=== PATIENT | female | born 1960 | race Caucasian/White ===

== ENCOUNTER 2017-01-24 18:53 | Inpatient (IN) ==
[2017-01-24] MEDS ORDERED: SODIUM CHLORIDE 0.9% 1,000 ML IV STA (19:13)
[2017-01-24] MEDS ORDERED: ALBUTEROL 2.5 MG/3 ML NEB RESP TX STA (19:13)
[2017-01-24 19:56] LABS: Basophils % 0.3 % (0.0-0.8); Eosinophils # 0.2 10*3/uL (0.0-0.87); Eosinophils % 1.8 % (0.00-10.9); Hematocrit 31.5 VOL% (35.7-47.0); Hemoglobin 9.7 GM/DL (12.0-16.0); Immature Granulocytes % 0.6 %; Immature Granulocytes Absolute 0.06 #; Lymphocytes # 2.3 10*3/uL (1.4-4.0); Lymphocytes % 22.8 % (21.3-54.2); Mean Corpuscular HGB Conc 30.8 GM/DL (32-36); Mean Corpuscular Hemoglobin 30 PG (27-34); Mean Corpuscular Volume 97.5 FL (87-102); Mean Platelet Volume 10.2 FL (9.6-12.0); Monocytes # 0.7 10*3/uL (0.11-0.8); Monocytes % 6.8 % (1.7-12.7); Neutrophils # 6.9 10*3/uL (1.4-7.4); Neutrophils % 67.7 % (38.7-73.9); Platelet Count 244 T/CUMM (130-400); Red Blood Count 3.23 MC/CUMM (3.8-5.5); Red Cell Distribution Width 15.2 % (9.3-17.3); White Blood Count 10.2 T/CUMM (4-12)
--- NOTE | 2017-01-24 19:59 | XRay Report ---
Referring Physician: Mariana Le Exam: XR chest 1V portable Date: January 24, 2017 at 7:27 PM Reason: Shortness of breath, fever Comparison: Chest one view portable September 10, 2016 Findings: A tracheostomy catheter is again in place. The cardiac silhouette is normal in size. Bibasilar opacities are present, mainly on the right. This is concerning for atelectasis and possibly pneumonia. No pneumothorax is identified, and no definite pleural fluid is seen. The osseous structures appear stable. Impression: Bibasilar opacities are present, mainly on the right. This likely represents atelectasis and possibly pneumonia. Follow-up is recommended to confirm resolution. PROCEDURE INTERPRETED AT [facility] DEPARTMENT OF RADIOLOGY Final Report Signed by: Dr. Lamberto Sands
[2017-01-24 20:12] LABS: INR 1.1; PT Patient Result 11.4 SECS
[2017-01-24 20:19] LABS: ABG Base Excess -0.1 MMOL/L (-2.5-2.5); ABG HCO3 24.2 MMOL/L (20-26); ABG Oxygen Saturation 97.1 % (95-100); ABG PCO2 38.4 MM HG (35-48); ABG PH 7.417 (7.35-7.45); ABG PO2 91.2 MM HG (80-95); ABG TCO2 25.4 MMOL/L (23-27); Allen Test Positive; Pt O2 Delivery Device Other
--- NOTE | 2017-01-24 20:21 | CT Report ---
Referring physician: Mariana Le Exam: CT brain without contrast Date: January 24, 2017 Comparison: CT brain without contrast June 25, 2016 Reason: Altered mental status The patient is an Emergency Department patient on January 24, 2017. Technique: Axial images of the head were obtained without the use of contrast. Total DLP was 1012.1 mGy*cm. Findings: There is again encephalomalacia at the right frontal lobe and possibly at the inferior left temporal lobe, which could represent a remote infarction or could be related to remote trauma. There is also persistent dilatation of the ventricles, particularly the lateral ventricles. This is concerning for hydrocephalus. No significant midline shift is seen. There is hypoattenuation at the periventricular white matter bilaterally, which could reflect chronic microvascular ischemic change or transependymal flow of CSF. There is no evidence of recent intracranial hemorrhage or an acute infarction. No acute osseous process is seen. The right mastoid air cells are clear. There is mild fluid within the left mastoid air cells and mild opacification of the right sphenoid sinus. Impression: 1. The ventricles are again dilated, particularly the lateral ventricles. The ventricles are overall stable to slightly decreased in size. This is concerning for hydrocephalus. 2. Additional chronic intracranial findings as above, similar to before. 3. Mild fluid within the right mastoid air cells and right sphenoid sinus disease. The CT exam was performed using one or more of the following dose reduction techniques: Automated exposure control and adjustment of the mA and/or kV according to patient size. PROCEDURE INTERPRETED AT [facility] DEPARTMENT OF RADIOLOGY Final Report Signed by: Dr. Lamberto Sands
[2017-01-24 20:27] LABS: Alanine Aminotransferase 35 U/L (13-56); Albumin 2.4 G/DL (3.4-5.0); Alkaline Phosphatase 98 U/L (45-117); Aspartate Amino Transferase 22 U/L (0-37); Bilirubin,Total < 0.39 MG/DL (0.2-1.0); Blood Urea Nitrogen 35 MG/DL (7-18); Calcium 8.4 MG/DL (8.5-10.1); Glucose 108 MG/DL (74-106); Osmolality,Calculated 324.6 MOS/KG (273-304); Potassium 3.9 MMOL/L (3.5-5.1); Total Protein 7.1 G/DL (6.4-8.3)
[2017-01-24 20:30] LABS: Sodium 160 MMOL/L (136-145)
[2017-01-24 21:30] LABS: Apearance,Urine CLOUDY (Clear); Bilirubin,Urine Negative (Negative); Blood, Urine Small mg/dL (Negative); Glucose,Urine (UA) Negative (Negative); Hyaline Casts,Urine 9 /LPF (0-3); Ketones,Urine Negative (Negative); Nitrite,Urine Negative (Negative); Protein,Urine Negative; RBC,Urine 46 /HPF (0-4); Squamous Epithelial Cell,Urine Occasional /HPF (0-10); Urine Color Yellow (Yellow); Urine Specific Gravity 1.014 (1.001-1.035); Urine Urobilinogen < 2.0 EU/DL (0.2-1.0); WBC,Urine 103 /HPF (0-6)
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
[2017-01-24] MEDS ORDERED: ACETAMINOPHEN 325 MG TABLET PO PRN (23:10)
[2017-01-24] MEDS ORDERED: VANCOMYCIN INJ 1,000 MG in SODIUM CHLORIDE 0.9% 250 ML IV ONE (23:10)
[2017-01-25] MEDS: DEXTROSE 5% NACL 0.45% 1,000 ML IV SCH ×3 (00:45→18:25)
[2017-01-25] MEDS: MEROPENEM 1,000 MG in SODIUM CHLORIDE 0.9% 100 ML IV SCH ×3 (00:53→18:26)
[2017-01-25] MEDS: ENOXAPARIN 40 MG/0.4 ML SYRINGE SUBCUT SCH (00:53)
[2017-01-25] MEDS: ALBUTEROL/IPRATROPIUM 3 ML NEB RESP TX SCH ×4 (01:20→19:15)
[2017-01-25 05:23] LABS: Basophils % 0.2 % (0.0-0.8); Eosinophils # 0.3 10*3/uL (0.0-0.87); Eosinophils % 3.1 % (0.00-10.9); Hematocrit 29.1 VOL% (35.7-47.0); Hemoglobin 8.7 GM/DL (12.0-16.0); Immature Granulocytes % 0.5 %; Immature Granulocytes Absolute 0.04 #; Lymphocytes # 1.9 10*3/uL (1.4-4.0); Lymphocytes % 22.5 % (21.3-54.2); Mean Corpuscular HGB Conc 29.9 GM/DL (32-36); Mean Corpuscular Hemoglobin 30 PG (27-34); Mean Corpuscular Volume 98.6 FL (87-102); Mean Platelet Volume 10.4 FL (9.6-12.0); Monocytes # 0.6 10*3/uL (0.11-0.8); Monocytes % 6.8 % (1.7-12.7); Neutrophils # 5.8 10*3/uL (1.4-7.4); Neutrophils % 66.9 % (38.7-73.9); Platelet Count 199 T/CUMM (130-400); Red Blood Count 2.95 MC/CUMM (3.8-5.5); Red Cell Distribution Width 15.2 % (9.3-17.3); White Blood Count 8.6 T/CUMM (4-12)
[2017-01-25 05:56] LABS: Albumin 2.1 G/DL (3.4-5.0); Bilirubin,Total 0.8 MG/DL (0.2-1.0); Calcium 8.1 MG/DL (8.5-10.1); Magnesium 2.1 MG/DL (1.8-2.4); Potassium 3.6 MMOL/L (3.5-5.1); Total Protein 6.3 G/DL (6.4-8.3)
--- NOTE | 2017-01-25 09:30 | EKG Report ---
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
[2017-01-25] MEDS: levETIRAcetam LIQUID 100 MG/ML 30 ML/BOTTLE PO SCH ×2 (09:48→20:56)
[2017-01-25] MEDS: MENTHOL/ZINC OXIDE OINT 71 GM JAR TOP SCH ×2 (09:48→20:55)
--- NOTE | 2017-01-25 13:34 | Hospitalist Progress Note ---
Assessment and Plan (1) Aspiration pneumonia Status: Acute Assessment and plan: The patient is admitted to the hospital with sepsis syndrome. She has aspiration pneumonia and healthcare setting as well as urinary tract infection. The patient continues on vancomycin and meropenem. Blood pressure is stable now and urine output has improved. The patient will continue on present antibiotic care. We will obtain infectious disease consultation tomorrow and follow-up on blood cultures. Urine cultures growing gram-negative kayode Current Visit: No Qualifiers: Aspiration pneumonia type: due to gastric secretions Laterality: bilateral Lung location: lower lobe of lung Qualified Code(s): J69.0 - Pneumonitis due to inhalation of food and vomit (2) Altered mental state Status: Acute Current Visit: Yes Qualifiers: Altered mental status type: somnolence Qualified Code(s): R40.0 - Somnolence (3) Urinary tract infection Status: Acute Current Visit: Yes Qualifiers: Urinary tract infection type: acute cystitis Hematuria presence: with hematuria Qualified Code(s): N30.01 - Acute cystitis with hematuria (4) Sacral decubitus ulcer Status: Chronic Current Visit: Yes Hospitalist: Subjective Interval history: The patient is resting quietly in bed this morning. I reviewed the plan of care and progress with her sister at the bedside. The patient has had increasing aspiration over the last several weeks. The patient is bedbound with tracheostomy and PEG tube. The patient has a sacral decubitus which has been healing in the last couple of months. The patient had no new events overnight and is on empiric care for sepsis syndrome with vancomycin and meropenem. Exam - Constitutional Vitals: Period Temp Pulse Resp BP Sys/Vargas Pulse Ox Last 24 Hr 97.5 F-98.1 F 77-109 15-27 90-109/60-76 94-100 Exam: General appearance: disheveled, other (White female appears older than stated age, acutely and chronically ill, tracking with eyes but makes no effort to communicate) Exam: - Eye Eye exam: Present: EOMI. Absent: conjunctival injection, scleral icterus Pupils: Present: BRADLEY - ENT ENT exam: Present: normal external ear exam, normal oropharynx - Expanded ENT Exam Mouth exam: Present: Dry - Neck Neck exam: Present: Tracheostomy noted absent: lymphadenopathy, thyromegaly - Respiratory Respiratory exam: Present: clear to auscultation bilaterally, decreased breath sounds. Absent: accessory muscle use, rales, rhonchi, wheezes - Cardiovascular Cardiovascular exam: Present: regular rhythm, tachycardia. Absent: diastolic murmur, systolic murmur - Expanded Cardiovascular Exam Peripheral pulses: 2+: posterior tibialis (L), posterior tibialis (R) - GI/Abdominal GI/Abdominal exam: Present: normal bowel sounds, soft, PEG tube noted. Absent: distended, hyperactive bowel sounds, hypoactive bowel sounds, organomegaly, tenderness, rebound - Extremities Exam Extremities exam: Absent: edema - Neurological Exam Neurological exam: Present: alert, aphasia, tracks, weakly opens mouth on command but does not move fingers - Psychiatric Psychiatric exam: Present: aphasia - Skin Skin exam: Present: warm, dry, pressure ulcer noted on admission. Absent: diaphoretic, rash Results - Labs CBC & BMP: 01/25/17 04:53 01/25/17 04:53 Lab Results: I have reviewed the past 24 hour labs
[2017-01-25] MEDS ORDERED: CITALOPRAM 20 MG TABLET PO SCH (19:00)
[2017-01-25] MEDS: VANCOMYCIN INJ 1,000 MG in SODIUM CHLORIDE 0.9% 250 ML IV SCH (20:55)
[2017-01-26] MEDS: MEROPENEM 1,000 MG in SODIUM CHLORIDE 0.9% 100 ML IV SCH ×4 (00:04→23:37)
[2017-01-26] MEDS: ENOXAPARIN 40 MG/0.4 ML SYRINGE SUBCUT SCH ×2 (00:04→23:37)
[2017-01-26] MEDS: ALBUTEROL/IPRATROPIUM 3 ML NEB RESP TX SCH ×4 (01:53→18:59)
[2017-01-26 05:06] LABS: Basophils % 0.4 % (0.0-0.8); Eosinophils # 0.3 10*3/uL (0.0-0.87); Eosinophils % 5.9 % (0.00-10.9); Hematocrit 23.2 VOL% (35.7-47.0); Hemoglobin 7.3 GM/DL (12.0-16.0); Immature Granulocytes % 0.6 %; Immature Granulocytes Absolute 0.03 #; Lymphocytes # 1.3 10*3/uL (1.4-4.0); Lymphocytes % 24.9 % (21.3-54.2); Mean Corpuscular HGB Conc 31.5 GM/DL (32-36); Mean Corpuscular Hemoglobin 30 PG (27-34); Mean Corpuscular Volume 95.9 FL (87-102); Mean Platelet Volume 10.4 FL (9.6-12.0); Monocytes # 0.4 10*3/uL (0.11-0.8); Monocytes % 7.2 % (1.7-12.7); Neutrophils # 3.3 10*3/uL (1.4-7.4); Platelet Count 166 T/CUMM (130-400); Red Blood Count 2.42 MC/CUMM (3.8-5.5); Red Cell Distribution Width 14.9 % (9.3-17.3); White Blood Count 5.4 T/CUMM (4-12)
[2017-01-26 05:40] LABS: Calcium 7.9 MG/DL (8.5-10.1); Magnesium 1.6 MG/DL (1.8-2.4); Osmolality,Calculated 293.4 MOS/KG (273-304); Potassium 3.4 MMOL/L (3.5-5.1)
--- NOTE | 2017-01-26 07:58 | XRay Report ---
XR chest 1V portable Indication: SOB Comparison: Chest x-ray dated January 24, 2017 Technique: Single frontal view of the chest Findings: Tracheostomy tube and cardiac mediastinal silhouette appear grossly unchanged. Progressed right infrahilar opacification suggesting asymmetric pulmonary edema or pneumonia. Osseous and surrounding soft tissue structures appear grossly unchanged. IMPRESSION: Progressed right infrahilar opacification suggesting pneumonia or asymmetric pulmonary edema. PROCEDURE INTERPRETED AT [facility] DEPARTMENT OF RADIOLOGY Final Report Signed by: Dr Ulices Mariano
[2017-01-26] MEDS: DEXTROSE 5% NACL 0.45% 1,000 ML IV SCH ×3 (07:59→17:48)
[2017-01-26] MEDS: MENTHOL/ZINC OXIDE OINT 71 GM JAR TOP SCH ×2 (09:00→20:56)
[2017-01-26] MEDS: levETIRAcetam LIQUID 100 MG/ML 30 ML/BOTTLE PO SCH ×2 (09:01→20:55)
--- NOTE | 2017-01-26 09:38 | Physician Query Form ---
CLICK EDIT DOCUMENT TO SELECT QUERY ANSWER --> OK --> SIGN Mimi Horton RN, CCDS Certified Clinical Barrel Turner W) [phone] (f) [phone] [email or web address] PROVIDERS: Make your selection(s) from the choices in EACH section by typing an "x" and enter comments in the comment section. Please use your independent medical judgment in providing your response. This request does not imply that any particular answer is desired or expected. CLINICAL INDICATORS: (Providers should not edit this section) The medical record indicates that the patient was admitted with pneumonia, AMS, OBS, Quadriplegia, History of "PNA secondary to aspiration of emesis and water" , normal WBC, and the patient was treated with Vancomycin/ Meropenem. Community Acquired and Healthcare Acquired are both unspecified terms and require further specificity. Based on the above, could you please clarify further specificity regarding the type of pneumonia you are treating (even if specific organism may not be known) ? (X) Aspiration pneumonia (X ) Gram negative pneumonia ( ) Gram positive pneumonia ( ) Bacterial pneumonia due to, please specify organism (if known): ( ) Pneumonia with Influenza ( ) Viral pneumonia ( ) Post procedural ( ) HIV associated pneumonia ( ) Radiation Pneumonitis ( ) Pneumonia due to, please specify: ( ) Clinically unable to determine ( ) Other, please specify: COMMENTS: Use of terms such as suspected, likely, or probable (associated with a specific diagnosis that is being evaluated, monitored, or treated as if it exists) are acceptable and can be restated in the discharge summary if not ruled out. MTDD
--- NOTE | 2017-01-26 09:39 | Physician Query Form ---
CLICK EDIT DOCUMENT TO SELECT QUERY ANSWER --> OK --> SIGN PROVIDERS: Make your selection(s) from the choices in EACH section by typing an "x" and enter comments in the comment section. Please use your independent medical judgment in providing your response. This request does not imply that any particular answer is desired or expected. CLINICAL INDICATORS: (Providers should not edit this section) The medical record indicates that the patient was admitted with pneumonia, Severe Sepsis, Normal WBC, No Left shift, pulse of 129#, RR of 30#, normal Lactic Acid of 1.1, normal creatinine and that patient was treated with antibiotics. In your clinical opinion as the attending MD can you please clarify if the patient was treated for ? Based on the above, could you clarify the appropriate diagnosis, if significant , that supports the above abnormalities and additional evaluation, monitoring, and/or treatment rendered: ( ) Severe Sepsis only ( ) Please include the clinical Indicators here: (X ) Sepsis only ( ) Other, please specify: ( ) Clinically unable to determine COMMENTS: Use of terms such as suspected, likely, or probable (associated with a specific diagnosis that is being evaluated, monitored, or treated as if it exists) are acceptable and can be restated in the discharge summary if not ruled out. MTDD
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
[2017-01-26] MEDS ORDERED: MIDAZOLAM 10 MG/2 ML VIAL ONE (11:40)
[2017-01-26] MEDS ORDERED: MAGNESIUM SULF RIDER 4 GM in PREMIX 1 EACH IV PRN (13:11)
[2017-01-26] MEDS ORDERED: MAGNESIUM SULF RIDER 2 GM in PREMIX 1 EACH IV PRN (13:11)
[2017-01-26] MEDS ORDERED: SODIUM CHLORIDE 0.9% 250 ML IV PRN (13:22)
--- NOTE | 2017-01-26 13:33 | Hospitalist Progress Note ---
Assessment and Plan - Time spent with patient Time spent with patient: Greater than 30 minutes (1) Dehydration Status: Acute Assessment and plan: This is improving with free water flush and hypotonic IV fluids. Current Visit: Yes (2) Hypernatremia Status: Acute Assessment and plan: Sodium is improving with free water flush and IV fluids. Current Visit: Yes (3) Pneumonia Status: Acute Assessment and plan: Treated with vancomycin and meropenem. Infectious disease consultation noted. Gram-negative rods in sputum noted. Consult Dr. Rojas pulmonary Current Visit: Yes Qualifiers: Pneumonia type: due to other aerobic Gram-negative bacteria Laterality: right Lung location: middle lobe of lung Qualified Code(s): J15.6 - Pneumonia due to other aerobic Gram-negative bacteria (4) Urinary tract infection Status: Acute Assessment and plan: Klebsiella pneumonia in urine. Continue Merrem Current Visit: Yes Qualifiers: Urinary tract infection type: acute cystitis Hematuria presence: with hematuria Qualified Code(s): N30.01 - Acute cystitis with hematuria (5) Aspiration pneumonia Status: Acute Current Visit: No Qualifiers: Aspiration pneumonia type: due to gastric secretions Laterality: bilateral Lung location: lower lobe of lung Qualified Code(s): J69.0 - Pneumonitis due to inhalation of food and vomit (6) History of pneumonia Status: Chronic Current Visit: No (7) Anemia Status: Acute Assessment and plan: Transfuse 2 units packed red blood cells for anemia Current Visit: Yes Qualifiers: Anemia type: unspecified type Qualified Code(s): D64.9 - Anemia, unspecified (8) Quadriplegia Status: Chronic Current Visit: No (9) TBI (traumatic brain injury) Status: Chronic Current Visit: No Hospitalist: Subjective Interval history: Patient seen and examined. No acute events overnight. Case discussed with nursing staff. Labs reviewed. Mental status has improved. Infectious disease consult reviewed. Exam - Constitutional Vitals: Period Temp Pulse Resp BP Sys/Vargas Pulse Ox Last 24 Hr 97.3 F-98.6 F 62-93 13-21 82-103/47-69 96-100 General appearance: mild distress Exam: Constitutional System: Mild distress. No tremulousness. Head: Normocephalic, atraumatic. Ears, Nose and Throat System: No pain or tenderness. No epistaxis or discharge Eyes System: Pupils equal, round, and reactive. Extraocular muscles intact. Neck: Supple, without adenopathy, No jugular venous distention. No thyromegaly, neck mass, or prior surgery apparent. Trach in place with purulent sputum Respiratory System: Chest with rhonchi bilaterally to auscultation. Cardiovascular System: Heart with regular rate and rhythm. No murmur. GI System: Abdomen soft, nontender. Normo active bowel sounds present. Musculoskeletal System: limbs with no pedal edema. Full distal pulses. Neurological System: Chronic quadriplegia as a late effect of stroke Psychiatric System: Conversation is minimal Results - Labs CBC & BMP: 01/26/17 03:34 01/26/17 03:34 Lab Results: I have reviewed the past 24 hour labs - Diagnostic Findings Procedure: Chest x-ray: image reviewed by me, report reviewed by me
[2017-01-26] MEDS: POTASSIUM CHLORIDE RIDER 10 MEQ in PREMIX 1 EACH IV PRN ×3 (15:12→17:51)
[2017-01-26] MEDS ORDERED: ONDANSETRON 4 MG/2 ML VIAL IV PRN (15:58)
[2017-01-26] MEDS ORDERED: ONDANSETRON 4 MG/2 ML VIAL ONE (16:01)
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
[2017-01-26] MEDS ORDERED: DOPamine 800 MG/250 ML PREMIX IV SCH (19:00)
[2017-01-26] MEDS: MUPIROCIN 2% OINT 22 GM TUBE TOP SCH (20:56)
[2017-01-26] MEDS: VANCOMYCIN INJ 1,000 MG in SODIUM CHLORIDE 0.9% 250 ML IV SCH (20:58)
[2017-01-26] MEDS ORDERED: CITALOPRAM 20 MG TABLET PO SCH (21:00)
[2017-01-27] MEDS: ALBUTEROL/IPRATROPIUM 3 ML NEB RESP TX SCH ×5 (00:54→19:37)
[2017-01-27 05:45] LABS: Basophils % 0.4 % (0.0-0.8); Eosinophils # 0.3 10*3/uL (0.0-0.87); Eosinophils % 6.1 % (0.00-10.9); Hematocrit 32.1 VOL% (35.7-47.0); Hemoglobin 10.5 GM/DL (12.0-16.0); Immature Granulocytes % 1.2 %; Immature Granulocytes Absolute 0.06 #; Lymphocytes # 1.2 10*3/uL (1.4-4.0); Lymphocytes % 23.2 % (21.3-54.2); Mean Corpuscular HGB Conc 32.7 GM/DL (32-36); Mean Corpuscular Hemoglobin 30 PG (27-34); Mean Corpuscular Volume 90.2 FL (87-102); Mean Platelet Volume 10.2 FL (9.6-12.0); Monocytes # 0.4 10*3/uL (0.11-0.8); Monocytes % 8.3 % (1.7-12.7); Neutrophils # 3.2 10*3/uL (1.4-7.4); Neutrophils % 60.8 % (38.7-73.9); Platelet Count 195 T/CUMM (130-400); Red Blood Count 3.56 MC/CUMM (3.8-5.5); Red Cell Distribution Width 15.9 % (9.3-17.3); White Blood Count 5.2 T/CUMM (4-12)
[2017-01-27 06:18] LABS: Calcium 8.1 MG/DL (8.5-10.1); Magnesium 2.1 MG/DL (1.8-2.4); Osmolality,Calculated 292.1 MOS/KG (273-304); Potassium 3.6 MMOL/L (3.5-5.1)
[2017-01-27] MEDS: MEROPENEM 1,000 MG in SODIUM CHLORIDE 0.9% 100 ML IV SCH ×3 (06:32→23:50)
[2017-01-27 06:41] LABS: Phosphorous 2.4 MG/DL (2.5-4.9); Prealbumin 27.6 MG/DL (20-40)
--- NOTE | 2017-01-27 07:12 | XRay Report ---
XR chest 1V portable Indication: Trach, pneumonia Comparison: Chest x-ray dated January 26, 2017 Technique: Single frontal view of the chest Findings: Tracheostomy tube appears grossly unchanged. Heart size remains within normal limits. Mildly improved atelectasis/consolidation within the right infrahilar lung. Interval development of mild atelectasis/consolidation within the left lung base. Findings again suspicious for pneumonia. Osseous and surrounding soft tissue structures appear grossly unchanged. IMPRESSION: As above. PROCEDURE INTERPRETED AT [facility] Final Report Signed by: Dr Ulices Mariano
--- NOTE | 2017-01-27 08:48 | Infectious Disease Progress ---
Assessment and Plan (1) History of UTI Status: Acute Current Visit: No (2) Mental status change Status: Acute Assessment and plan: Likely due to infection, mental status is now back to baseline in response to antibiotics and IV hydration. Current Visit: No (3) Right lower lobe pneumonia Status: Acute Assessment and plan: Right lung base infiltrate improved although there is no new infiltrate in the left lung base. Overall patient improved no fever less secretions. Recommendations: 1. Discontinue vancomycin as no gram positives isolated 2. Continue meropenem 3. Follow-up finalized sputum culture result Discussed with Dr. Aparicio Current Visit: No (4) Urinary tract infection Status: Acute Assessment and plan: Due to ESBL Klebsiella. Urine appears much clear. Continue meropenem therapy. Current Visit: Yes Qualifiers: Urinary tract infection type: acute cystitis Hematuria presence: with hematuria Qualified Code(s): N30.01 - Acute cystitis with hematuria Infectious Disease - PN: Subj Interval history: patient has been afebrile, improved BP, less tracheal secretions. She indicates that she feels better. Infectious Disease Exam (PN) - Constitutional Vitals: Temp Pulse Resp BP Pulse Ox 98.9 F 76 16 95/60 97 01/27/17 08:00 01/27/17 08:00 01/27/17 08:00 01/27/17 08:00 01/27/17 08:00 General appearance: mild distress Exam: General appearance: Comfortable and interacts appropriately - Eye Eye exam: Present: EOMI. no icterus Pupils: Present: BRADLEY - ENT ENT exam: no oral exudates - Respiratory Respiratory exam: vesicular BS, no crepitations or wheezes - Cardiovascular Cardiovascular exam: regular rate and rhythm, no murmurs - GI/Abdominal GI/Abdominal exam: normal bowel sounds, soft, non-tender, no organomegaly or mass - Extremities Exam Extremities exam: no edema - Skin Skin exam: no rash Results - Labs CBC & BMP: 01/27/17 04:06 01/27/17 04:06 Lab Results: I have reviewed the past 24 hour labs (ESBL Klebsiella from urine, gram-negative kayode some sputum) - Diagnostic Findings Procedure: Chest x-ray: image reviewed by me, report reviewed by me (Improved right lung base opacity, new left lung base opacity)
[2017-01-27] MEDS: MUPIROCIN 2% OINT 22 GM TUBE TOP SCH ×2 (08:58→20:57)
[2017-01-27] MEDS: levETIRAcetam LIQUID 100 MG/ML 30 ML/BOTTLE PO SCH ×2 (08:58→20:56)
[2017-01-27] MEDS: MENTHOL/ZINC OXIDE OINT 71 GM JAR TOP SCH ×2 (08:58→20:57)
[2017-01-27] MEDS: POTASSIUM CHLORIDE RIDER 10 MEQ in PREMIX 1 EACH IV PRN ×2 (08:59→10:41)
--- NOTE | 2017-01-27 10:10 | Pulmonology Progress Note ---
Pulmonary - PN: Subj Interval history: This is a 56-year-old white female correction patient whom I saw in pulmonary consultation on 01/26/2017. My impressions were. 1. Acute right lower lung pneumonia. Agree with covering for gram-positive cocci and gram-negative rods. 2. Trach. 3. Urinary tract infection with Klebsiella 4. Colonization of the nares with MRSA 5. Quadriplegia 6. PEG tube 7. History of dementia 8. History of seizure disorder 9. See past history 01/27/2017. Patient is comfortable in no apparent distress today. Her chest x- ray shows residual right lower lung and left lower lung infiltrate compatible with pneumonia sputum collected 01/25/2017 is growing a gram-negative kayode. No ID and no sensitivities have been reported. Stools are negative for C. difficile. Urine from 01/24/2017 is growing Klebsiella. All blood cultures are negative. White count is dropped to 5200 with 61 segs 23 lymphs and 8 monos. Posttransfusion H&H is 10.5/32.1. Platelets are 195,000. Sodium 149. Potassium 3.6. Creatinine is dropped to 0.50 with a BUN of 7. Vitamin D level is low and will be replaced. Infectious diseases on the case Physical exam. Vital signs. See below Neurologic. Patient is in no distress and pays attention. Quadriplegic. Face. Symmetrical. Lips and tongue are normal. Neck. Symmetrical. No masses. Lymphatics. No submandibular cervical supraclavicular or epitrochlear adenopathy. Chest. Very slight large airway congestion no wheezes. Extremities no edema. The remainder the physical exam is negative. Plan. 1. Agree with antibiotics 2. Inhalation therapy 3. Follow-up chest x-rays. 4. See orders 5. 01/27/2017. See today's note above. Exam (Progress Note) - Constitutional Vitals: Period Temp Pulse Resp BP Sys/Vargas Pulse Ox Last 24 Hr 97.3 F-98.9 F 62-102 12-24 81-107/55-70 96-100 Results - Labs CBC & BMP: 01/27/17 04:06 01/27/17 04:06
[2017-01-27] MEDS: CHOLECALCIFEROL 1,000 UNIT TABLET PO SCH (10:40)
[2017-01-27] MEDS: DEXTROSE 5% NACL 0.45% 1,000 ML IV SCH ×3 (11:52→23:49)
[2017-01-27] MEDS ORDERED: ONDANSETRON 4 MG TABLET PEG PRN (13:29)
[2017-01-27] MEDS ORDERED: LACTULOSE 20 GM/30 ML UDCUP PEG PRN (13:29)
--- NOTE | 2017-01-27 13:46 | Hospitalist Progress Note ---
Assessment and Plan (1) Urinary tract infection Status: Acute Assessment and plan: Klebsiella pneumonia in urine. Continue Merrem. discussed with infectious disease. Current Visit: Yes Qualifiers: Urinary tract infection type: acute cystitis Hematuria presence: with hematuria Qualified Code(s): N30.01 - Acute cystitis with hematuria (2) Pneumonia Status: Acute Assessment and plan: Treated with meropenem. Infectious disease consultation noted. Gram-negative rods in sputum noted. Dr. Rojas following for pulmonary. Chest x-ray improving. Current Visit: Yes Qualifiers: Pneumonia type: due to other aerobic Gram-negative bacteria Laterality: right Lung location: middle lobe of lung Qualified Code(s): J15.6 - Pneumonia due to other aerobic Gram-negative bacteria (3) Dehydration Status: Acute Assessment and plan: This is improving with free water flush and hypotonic IV fluids. Current Visit: Yes (4) Hypernatremia Status: Acute Assessment and plan: Sodium is improving with free water flush and IV fluids. Current Visit: Yes (5) Aspiration pneumonia Status: Acute Current Visit: No Qualifiers: Aspiration pneumonia type: due to gastric secretions Laterality: bilateral Lung location: lower lobe of lung Qualified Code(s): J69.0 - Pneumonitis due to inhalation of food and vomit (6) History of pneumonia Status: Chronic Current Visit: No (7) Anemia Status: Acute Assessment and plan: Improved posttransfusion H&H. Current Visit: Yes Qualifiers: Anemia type: unspecified type Qualified Code(s): D64.9 - Anemia, unspecified (8) Quadriplegia Status: Chronic Current Visit: No (9) TBI (traumatic brain injury) Status: Chronic Current Visit: No Hospitalist: Subjective Interval history: Patient seen and examined. No acute events overnight. Case discussed with nursing staff. Labs reviewed. Patient looks and feels better and is reportedly back to baseline. Case discussed with Dr. Prashant Bush. Will discontinue vancomycin and continue meropenem. Patient is stable and able to transfer to the floor today. Exam - Constitutional Vitals: Period Temp Pulse Resp BP Sys/Vargas Pulse Ox Last 24 Hr 97.3 F-98.9 F 68-102 12-24 81-107/55-70 96-100 Exam: Constitutional System: Mild distress. No tremulousness. Head: Normocephalic, atraumatic. Ears, Nose and Throat System: No pain or tenderness. No epistaxis or discharge Eyes System: Pupils equal, round, and reactive. Extraocular muscles intact. Neck: Supple, without adenopathy, No jugular venous distention. No thyromegaly, neck mass, or prior surgery apparent. Trach in place with trach collar oxygen Respiratory System: Chest with rhonchi bilaterally to auscultation-improved from yesterday Cardiovascular System: Heart with regular rate and rhythm. No murmur. GI System: Abdomen soft, nontender. Normo active bowel sounds present. Liquid stool noted. C. difficile negative Musculoskeletal System: limbs with no pedal edema. Full distal pulses. Neurological System: Chronic quadriplegia as a late effect of stroke Psychiatric System: Conversation is minimal Results - Labs CBC & BMP: 01/27/17 04:06 01/27/17 04:06 Lab Results: I have reviewed the past 24 hour labs - Diagnostic Findings Procedure: Chest x-ray: image reviewed by me, report reviewed by me
[2017-01-27] MEDS: NYSTATIN POWDER 15 GM BOTTLE TOP SCH ×2 (16:36→20:56)
[2017-01-27] MEDS: METOCLOPRAMIDE 10 MG/10 ML UDCUP PEG SCH ×2 (18:26→20:56)
[2017-01-27] MEDS: LACTOBACILLUS ACIDOPHILUS/BULGARICUS 1 PACKET PEG SCH ×2 (18:26→20:56)
[2017-01-27] MEDS: CITALOPRAM 20 MG TABLET PEG SCH (20:55)
[2017-01-27] MEDS: ENOXAPARIN 40 MG/0.4 ML SYRINGE SUBCUT SCH (23:50)
[2017-01-28] MEDS: ALBUTEROL/IPRATROPIUM 3 ML NEB RESP TX SCH ×4 (00:03→20:00)
[2017-01-28 03:47] LABS: ABG Base Excess 1.4 MMOL/L (-2.5-2.5); ABG HCO3 25.7 MMOL/L (20-26); ABG Oxygen Saturation 97.8 % (95-100); ABG PCO2 38.3 MM HG (35-48); ABG PH 7.433 (7.35-7.45); ABG PO2 92.7 MM HG (80-95); Allen Test Positive
[2017-01-28 05:48] LABS: Basophils % 0.3 % (0.0-0.8); Eosinophils # 0.4 10*3/uL (0.0-0.87); Eosinophils % 6.2 % (0.00-10.9); Hematocrit 32.5 VOL% (35.7-47.0); Hemoglobin 10.7 GM/DL (12.0-16.0); Immature Granulocytes % 0.7 %; Immature Granulocytes Absolute 0.04 #; Lymphocytes % 33.8 % (21.3-54.2); Mean Corpuscular HGB Conc 32.9 GM/DL (32-36); Mean Corpuscular Hemoglobin 30 PG (27-34); Mean Corpuscular Volume 90.5 FL (87-102); Mean Platelet Volume 9.9 FL (9.6-12.0); Monocytes # 0.5 10*3/uL (0.11-0.8); Monocytes % 7.9 % (1.7-12.7); Neutrophils % 51.1 % (38.7-73.9); Platelet Count 208 T/CUMM (130-400); Red Blood Count 3.59 MC/CUMM (3.8-5.5); Red Cell Distribution Width 15.9 % (9.3-17.3); White Blood Count 5.8 T/CUMM (4-12)
[2017-01-28 06:25] LABS: Calcium 8.3 MG/DL (8.5-10.1); Magnesium 2.1 MG/DL (1.8-2.4); Osmolality,Calculated 288.4 MOS/KG (273-304); Potassium 3.7 MMOL/L (3.5-5.1)
[2017-01-28] MEDS: MEROPENEM 1,000 MG in SODIUM CHLORIDE 0.9% 100 ML IV SCH ×2 (06:59→17:55)
--- NOTE | 2017-01-28 07:32 | XRay Report ---
XR chest 1V portable Indication: Tracheostomy, pneumonia Comparison: Chest x-ray dated January 27, 2017 Technique: Single frontal view of the chest Findings: Tracheostomy tube stable in positioning. Cardiac mediastinal silhouette is stable in configuration. There is masslike opacification within the right infrahilar region which could reflect pneumonia. However, malignancy is not excluded and CT scan is recommended. Osseous and surrounding soft tissue structures appear grossly unchanged. IMPRESSION: As above. PROCEDURE INTERPRETED AT [facility] DEPARTMENT OF RADIOLOGY Final Report Signed by: Dr Ulices Mariano
[2017-01-28] MEDS: DEXTROSE 5% NACL 0.45% 1,000 ML IV SCH ×2 (09:03→19:07)
[2017-01-28] MEDS: LACTOBACILLUS ACIDOPHILUS/BULGARICUS 1 PACKET PEG SCH ×4 (09:57→23:03)
[2017-01-28] MEDS: CHOLECALCIFEROL 1,000 UNIT TABLET PO SCH (09:57)
[2017-01-28] MEDS: METOCLOPRAMIDE 10 MG/10 ML UDCUP PEG SCH ×4 (09:57→23:03)
[2017-01-28] MEDS: levETIRAcetam LIQUID 100 MG/ML 30 ML/BOTTLE PO SCH ×2 (09:58→23:02)
[2017-01-28] MEDS: NYSTATIN POWDER 15 GM BOTTLE TOP SCH ×3 (09:58→23:04)
[2017-01-28] MEDS: MENTHOL/ZINC OXIDE OINT 71 GM JAR TOP SCH ×2 (09:59→23:05)
[2017-01-28] MEDS: MUPIROCIN 2% OINT 22 GM TUBE TOP SCH ×2 (09:59→23:05)
--- NOTE | 2017-01-28 10:17 | Infectious Disease Progress ---
Assessment and Plan (1) History of UTI Status: Acute Current Visit: No (2) Mental status change Status: Acute Assessment and plan: Likely due to infection, mental status is now back to baseline in response to antibiotics and IV hydration. Current Visit: No (3) Right lower lobe pneumonia Status: Acute Assessment and plan: Patient clinically looking better chest x-ray also improving. Recommendations: 1. Continue meropenem 2. Follow-up finalized sputum culture result Discussed with sister at bedside Current Visit: No (4) Urinary tract infection Status: Acute Assessment and plan: Due to ESBL Klebsiella. Urine appears much clear. Continue meropenem therapy. Current Visit: Yes Qualifiers: Urinary tract infection type: acute cystitis Hematuria presence: with hematuria Qualified Code(s): N30.01 - Acute cystitis with hematuria Infectious Disease - PN: Subj Interval history: Patient now out of ICU, she continues to improve. Sister was with her at bedside. She informed me that the patient aspirated after vomiting from motion sickness on returning from a doctor's visit in [place]. She was doing perfect up until then. Currently secretions have decreased, she has had no fever. She is alert and her sister says she actually wants to eat. She is in the process of being evaluated for that by her primary care provider. Infectious Disease Exam (PN) - Constitutional Vitals: Temp Pulse Resp BP Pulse Ox 97.2 F L 68 15 99/56 98 01/28/17 04:56 01/28/17 07:35 01/28/17 07:35 01/28/17 04:56 01/28/17 07:35 General appearance: mild distress Exam: General appearance: Comfortable and interactive - Eye Eye exam: Present: EOMI. no icterus Pupils: Present: BRADLEY - ENT ENT exam: no oral exudates - Respiratory Respiratory exam: vesicular BS, no crepitations or wheezes - Cardiovascular Cardiovascular exam: regular rate and rhythm, no murmurs - GI/Abdominal GI/Abdominal exam: normal bowel sounds, soft, non-tender, no organomegaly or mass - Extremities Exam Extremities exam: no edema - Skin Skin exam: no rash Results - Labs CBC & BMP: 01/28/17 04:57 01/28/17 04:57 Lab Results: I have reviewed the past 24 hour labs (2 GNRs in sputum not yet identified) - Diagnostic Findings Procedure: Chest x-ray: image reviewed by me, report reviewed by me (Chest x- ray looking better to me)
--- NOTE | 2017-01-28 10:30 | Hospitalist Progress Note ---
Assessment and Plan - Time spent with patient Time spent with patient: Greater than 30 minutes (1) Pneumonia Status: Acute Assessment and plan: Continue abx as per ID. Appreciate their assistance. Current Visit: Yes Qualifiers: Pneumonia type: due to other aerobic Gram-negative bacteria Laterality: right Lung location: middle lobe of lung Qualified Code(s): J15.6 - Pneumonia due to other aerobic Gram-negative bacteria (2) Urinary tract infection Status: Acute Assessment and plan: Continue abx as per ID. GNR. Current Visit: Yes Qualifiers: Urinary tract infection type: acute cystitis Hematuria presence: with hematuria Qualified Code(s): N30.01 - Acute cystitis with hematuria (3) Sacral decubitus ulcer Status: Chronic Assessment and plan: Wound care involved. Current Visit: Yes (4) Quadriplegia Status: Chronic Assessment and plan: Preventative measures. Current Visit: No (5) Seizure Status: Chronic Assessment and plan: Continue medications. Current Visit: No Hospitalist: Subjective Interval history: No complaints, patient appears comfortable and is smiling. Transferred from the intensive care unit overnight where she was admitted with sepsis secondary to pneumonia and UTI. Exam - Constitutional Vitals: Period Temp Pulse Resp BP Sys/Vargas Pulse Ox Last 24 Hr 97.2 F-98.5 F 66-86 15-25 85-102/56-67 92-98 General appearance: no acute distress - Head Head exam: Present: normocephalic, atraumatic - Eye Eye exam: Present: EOMI Pupils: Present: BRADLEY - ENT ENT exam: Present: other (tracheostomy) - Neck Neck exam: Present: normal inspection - Respiratory Respiratory exam: Present: clear to auscultation bilaterally. Absent: rhonchi, wheezes - Cardiovascular Cardiovascular exam: Present: regular rate and rhythm. Absent: gallop, rubs, systolic murmur - GI/Abdominal GI/Abdominal exam: Present: normal bowel sounds, soft. Absent: distended, firm , guarding, tenderness, rebound - Extremities Exam Extremities exam: Present: normal inspection. Absent: calf tenderness, edema Results - Labs CBC & BMP: 01/28/17 04:57 01/28/17 04:57 Lab Results: I have reviewed the past 24 hour labs
--- NOTE | 2017-01-28 11:02 | Pulmonology Progress Note ---
Pulmonary - PN: Subj Interval history: This is a 56-year-old white female residential patient whom I saw in pulmonary consultation on 01/26/2017. My impressions were. 1. Acute right lower lung pneumonia. Agree with covering for gram-positive cocci and gram-negative rods. 2. Trach. 3. Urinary tract infection with Klebsiella 4. Colonization of the nares with MRSA 5. Quadriplegia 6. PEG tube 7. History of dementia 8. History of seizure disorder 9. See past history 01/27/2017. Patient is comfortable in no apparent distress today. Her chest x- ray shows residual right lower lung and left lower lung infiltrate compatible with pneumonia sputum collected 01/25/2017 is growing a gram-negative kayode. No ID and no sensitivities have been reported. Stools are negative for C. difficile. Urine from 01/24/2017 is growing Klebsiella. All blood cultures are negative. White count is dropped to 5200 with 61 segs 23 lymphs and 8 monos. Posttransfusion H&H is 10.5/32.1. Platelets are 195,000. Sodium 149. Potassium 3.6. Creatinine is dropped to 0.50 with a BUN of 7. Vitamin D level is low and will be replaced. Infectious diseases on the case 01/28/2017. This patient continues to be very comfortable and is doing well. She is alert and tries to talk a little. Her chest x-ray shows a small right perihilar infiltrate. There is slight increase in interstitial markings at both bases. No congestive heart failure. Sputum's have grown Acinetobacter and Pseudomonas arch stenosis. Urine has grown Klebsiella. ABGs on FiO2 35% show a pH 7.43, PCO2 38, PO2 of 93 and bicarb 25.7. White count is dropped to 5800. H&H is 10.9/32.5. Antibiotics have been reviewed. We will continue the patient's meropenem. I have added gentamicin have asked for pharmacology consult. Will follow daily BMPs Physical exam. Vital signs. See below Neurologic. Patient is in no distress and pays attention. Quadriplegic. Face. Symmetrical. Lips and tongue are normal. Neck. Symmetrical. No masses. Lymphatics. No submandibular cervical supraclavicular or epitrochlear adenopathy. Chest. Very slight large airway congestion no wheezes. Extremities no edema. The remainder the physical exam is negative. Plan. 1. Agree with antibiotics 2. Inhalation therapy 3. Follow-up chest x-rays. 4. See orders 5. 01/27/2017. See today's note above. 6. 01/28/2017. See my note above. Gentamicin. Meropenem. Exam (Progress Note) - Constitutional Vitals: Period Temp Pulse Resp BP Sys/Vargas Pulse Ox Last 24 Hr 97.2 F-98.5 F 66-86 15-25 85-102/56-67 92-98 Results - Labs CBC & BMP: 01/28/17 04:57 01/28/17 04:57
[2017-01-28] MEDS ORDERED: GENTAMICIN INJ 60 MG in SODIUM CHLORIDE 0.9% 100 ML IV SCH (11:30)
[2017-01-28] MEDS: GENTAMICIN INJ 120 MG in PREMIX 1 EACH IV SCH (13:20)
[2017-01-28] MEDS: LEVOFLOXACIN 750 MG TABLET PEG SCH (13:23)
[2017-01-28] MEDS: CITALOPRAM 20 MG TABLET PEG SCH (23:03)
[2017-01-28] MEDS: ENOXAPARIN 40 MG/0.4 ML SYRINGE SUBCUT SCH (23:04)
[2017-01-29] MEDS: ALBUTEROL/IPRATROPIUM 3 ML NEB RESP TX SCH ×4 (00:30→19:29)
[2017-01-29] MEDS: MEROPENEM 1,000 MG in SODIUM CHLORIDE 0.9% 100 ML IV SCH ×3 (01:34→16:11)
[2017-01-29] MEDS: DEXTROSE 5% NACL 0.45% 1,000 ML IV SCH ×2 (05:40→16:00)
[2017-01-29] MEDS: GENTAMICIN INJ 120 MG in PREMIX 1 EACH IV SCH (05:47)
[2017-01-29 06:01] LABS: Basophils % 0.3 % (0.0-0.8); Eosinophils # 0.2 10*3/uL (0.0-0.87); Eosinophils % 3.5 % (0.00-10.9); Hematocrit 34.3 VOL% (35.7-47.0); Hemoglobin 11.1 GM/DL (12.0-16.0); Immature Granulocytes Absolute 0.07 #; Lymphocytes # 1.5 10*3/uL (1.4-4.0); Lymphocytes % 21.3 % (21.3-54.2); Mean Corpuscular HGB Conc 32.4 GM/DL (32-36); Mean Corpuscular Hemoglobin 30 PG (27-34); Mean Corpuscular Volume 93.2 FL (87-102); Mean Platelet Volume 9.9 FL (9.6-12.0); Monocytes # 0.5 10*3/uL (0.11-0.8); Neutrophils # 4.6 10*3/uL (1.4-7.4); Neutrophils % 66.9 % (38.7-73.9); Platelet Count 211 T/CUMM (130-400); Red Blood Count 3.68 MC/CUMM (3.8-5.5); Red Cell Distribution Width 15.5 % (9.3-17.3); White Blood Count 6.8 T/CUMM (4-12)
[2017-01-29 06:30] LABS: Calcium 8.4 MG/DL (8.5-10.1); Osmolality,Calculated 288.4 MOS/KG (273-304); Potassium 3.7 MMOL/L (3.5-5.1)
[2017-01-29] MEDS: METOCLOPRAMIDE 10 MG/10 ML UDCUP PEG SCH ×4 (09:58→22:28)
[2017-01-29] MEDS: MUPIROCIN 2% OINT 22 GM TUBE TOP SCH ×2 (09:58→22:26)
[2017-01-29] MEDS: LACTOBACILLUS ACIDOPHILUS/BULGARICUS 1 PACKET PEG SCH ×4 (09:58→22:30)
[2017-01-29] MEDS: CHOLECALCIFEROL 1,000 UNIT TABLET PO SCH (09:58)
[2017-01-29] MEDS: LEVOFLOXACIN 750 MG TABLET PEG SCH (09:58)
--- NOTE | 2017-01-29 09:58 | Pulmonology Progress Note ---
Pulmonary - PN: Subj Interval history: This is a 56-year-old white female group home patient whom I saw in pulmonary consultation on 01/26/2017. My impressions were. 1. Acute right lower lung pneumonia. Agree with covering for gram-positive cocci and gram-negative rods. 2. Trach. 3. Urinary tract infection with Klebsiella 4. Colonization of the nares with MRSA 5. Quadriplegia 6. PEG tube 7. History of dementia 8. History of seizure disorder 9. See past history 01/27/2017. Patient is comfortable in no apparent distress today. Her chest x- ray shows residual right lower lung and left lower lung infiltrate compatible with pneumonia sputum collected 01/25/2017 is growing a gram-negative kayode. No ID and no sensitivities have been reported. Stools are negative for C. difficile. Urine from 01/24/2017 is growing Klebsiella. All blood cultures are negative. White count is dropped to 5200 with 61 segs 23 lymphs and 8 monos. Posttransfusion H&H is 10.5/32.1. Platelets are 195,000. Sodium 149. Potassium 3.6. Creatinine is dropped to 0.50 with a BUN of 7. Vitamin D level is low and will be replaced. Infectious diseases on the case 01/28/2017. This patient continues to be very comfortable and is doing well. She is alert and tries to talk a little. Her chest x-ray shows a small right perihilar infiltrate. There is slight increase in interstitial markings at both bases. No congestive heart failure. Sputum's have grown Acinetobacter and Pseudomonas arch stenosis. Urine has grown Klebsiella. ABGs on FiO2 35% show a pH 7.43, PCO2 38, PO2 of 93 and bicarb 25.7. White count is dropped to 5800. H&H is 10.9/32.5. Antibiotics have been reviewed. We will continue the patient's meropenem. I have added gentamicin have asked for pharmacology consult. Will follow daily BMPs 01/29/2017. Patient had an uneventful night and she is comfortable this morning. Microbiology, see my note 01/28/2017. Electrolytes are normal. Creatinine is 0.6. H&H 11.1/34.3. White count is dropped 6800 with 67 segs 21 lymphs and 7 monos. Overall this patient continues to improve. Physical exam. Vital signs. See below Neurologic. Patient is in no distress and pays attention. Quadriplegic. Face. Symmetrical. Lips and tongue are normal. Neck. Symmetrical. No masses. Lymphatics. No submandibular cervical supraclavicular or epitrochlear adenopathy. Chest. Very slight large airway congestion no wheezes. Extremities no edema. The remainder the physical exam is negative. Plan. 1. antibiotics. See my note 01/28/2017 2. Inhalation therapy 3. Follow-up chest x-rays. 01/29/2017 4. See orders 5. 01/27/2017. See today's note above. 6. 01/28/2017. See my note above. Gentamicin. Meropenem. Exam (Progress Note) - Constitutional Vitals: Period Temp Pulse Resp BP Sys/Vargas Pulse Ox Last 24 Hr 97.6 F-98.4 F 81-120 18-24 95-105/59-69 94-100 Results - Labs CBC & BMP: 01/29/17 05:29 01/29/17 05:28
[2017-01-29] MEDS: NYSTATIN POWDER 15 GM BOTTLE TOP SCH ×3 (09:59→22:26)
[2017-01-29] MEDS: levETIRAcetam LIQUID 100 MG/ML 30 ML/BOTTLE PO SCH ×2 (09:59→22:27)
[2017-01-29] MEDS: MENTHOL/ZINC OXIDE OINT 71 GM JAR TOP SCH ×2 (09:59→22:26)
--- NOTE | 2017-01-29 10:19 | Infectious Disease Progress ---
Assessment and Plan (1) History of UTI Status: Acute Current Visit: No (2) Mental status change Status: Acute Assessment and plan: Likely due to infection, mental status is now back to baseline in response to antibiotics and IV hydration. Current Visit: No (3) Right lower lobe pneumonia Status: Acute Assessment and plan: Patient clinically looking better chest x-ray also improving. Renal function ok on gent. Recommendations: COntinue antibiotics and renal function monitoring on gent. Current Visit: No (4) Urinary tract infection Status: Acute Assessment and plan: Due to ESBL Klebsiella, improved with meropenem therapy. Current Visit: Yes Qualifiers: Urinary tract infection type: acute cystitis Hematuria presence: with hematuria Qualified Code(s): N30.01 - Acute cystitis with hematuria Infectious Disease - PN: Subj Interval history: Patient continues to do well clinically, tolerating antibiotics. Denies breathing difficulty. Afebrile. Infectious Disease Exam (PN) - Constitutional Vitals: Temp Pulse Resp BP Pulse Ox 97.8 F 81 22 105/69 95 01/29/17 04:00 01/29/17 04:00 01/29/17 06:00 01/29/17 04:00 01/29/17 05:00 General appearance: no acute distress Exam: General appearance: Comfortable and interactive - Eye Eye exam: Present: EOMI. no icterus Pupils: Present: BRADLEY - ENT ENT exam: trach noted, no oral exudates - Respiratory Respiratory exam: vesicular BS, no crepitations or wheezes - Cardiovascular Cardiovascular exam: regular rate and rhythm, no murmurs - GI/Abdominal GI/Abdominal exam: PEG present, normal bowel sounds, soft, non-tender, no organomegaly or mass - Extremities Exam Extremities exam: no edema - Skin Skin exam: no rash Results - Labs CBC & BMP: 01/29/17 05:29 01/29/17 05:28 Lab Results: I have reviewed the past 24 hour labs
--- NOTE | 2017-01-29 10:59 | Hospitalist Progress Note ---
Assessment and Plan - Time spent with patient Time spent with patient: Greater than 30 minutes (1) Pneumonia Status: Acute Assessment and plan: Continue abx as per ID. Appreciate their assistance. Current Visit: Yes Qualifiers: Pneumonia type: due to other aerobic Gram-negative bacteria Laterality: right Lung location: middle lobe of lung Qualified Code(s): J15.6 - Pneumonia due to other aerobic Gram-negative bacteria (2) Urinary tract infection Status: Acute Assessment and plan: Cultures returned. Continue abx as per ID. Current Visit: Yes Qualifiers: Urinary tract infection type: acute cystitis Hematuria presence: with hematuria Qualified Code(s): N30.01 - Acute cystitis with hematuria (3) Sacral decubitus ulcer Status: Chronic Assessment and plan: Wound care involved. Current Visit: Yes (4) Quadriplegia Status: Chronic Assessment and plan: Preventative measures. Current Visit: No (5) Seizure Status: Chronic Assessment and plan: Continue medications. Current Visit: No Hospitalist: Subjective Interval history: Patient is alert, not talkative but nodding to my questions. No overnight events. Exam - Constitutional Vitals: Period Temp Pulse Resp BP Sys/Vargas Pulse Ox Last 24 Hr 97.6 F-98.4 F 81-120 18-24 95-105/59-69 94-100 General appearance: normal weight, no acute distress - Head Head exam: Present: normal inspection, normocephalic, atraumatic - Eye Eye exam: Present: EOMI Pupils: Present: BRADLEY - ENT ENT exam: Present: other (tracheostomy) - Neck Neck exam: Present: normal inspection - Respiratory Respiratory exam: Present: clear to auscultation bilaterally. Absent: rhonchi, wheezes - Cardiovascular Cardiovascular exam: Present: regular rate and rhythm. Absent: gallop, rubs, systolic murmur - GI/Abdominal GI/Abdominal exam: Present: normal bowel sounds, soft. Absent: distended, firm , guarding, tenderness, rebound - Extremities Exam Extremities exam: Present: normal inspection. Absent: calf tenderness, edema Results - Labs CBC & BMP: 01/29/17 05:29 01/29/17 05:28 Lab Results: I have reviewed the past 24 hour labs
[2017-01-29] MEDS: CITALOPRAM 20 MG TABLET PEG SCH (22:29)
[2017-01-29] MEDS: ENOXAPARIN 40 MG/0.4 ML SYRINGE SUBCUT SCH (22:33)
[2017-01-30] MEDS: GENTAMICIN INJ 120 MG in PREMIX 1 EACH IV SCH ×2 (00:54→17:30)
[2017-01-30] MEDS: ALBUTEROL/IPRATROPIUM 3 ML NEB RESP TX SCH ×4 (01:41→20:23)
[2017-01-30] MEDS: MEROPENEM 1,000 MG in SODIUM CHLORIDE 0.9% 100 ML IV SCH ×3 (02:03→16:05)
[2017-01-30] MEDS: DEXTROSE 5% NACL 0.45% 1,000 ML IV SCH ×2 (04:20→15:59)
[2017-01-30 08:10] LABS: Phosphorous 1.7 MG/DL (2.5-4.9); Prealbumin 29.8 MG/DL (20-40)
--- NOTE | 2017-01-30 08:33 | XRay Report ---
Portable chest Date: 01/30/2017 Clinical history: Pneumonia Comparison: 01/28/2017 Technique: Portable AP sitting chest Findings: The heart is normal in size with stable tracheostomy tube. Residual atelectasis/infiltration at the lung bases. Persistent increased density in right hilar location. Stable degenerative changes. Impression: Minimally progressive atelectasis/infiltration in the lower lung zones with stable mediastinum. PROCEDURE INTERPRETED AT [facility] DEPARTMENT OF RADIOLOGY Final Report Signed by: Dr. Chandni Woodard
[2017-01-30 08:47] LABS: Calcium 8.2 MG/DL (8.5-10.1); Magnesium 2.1 MG/DL (1.8-2.4); Osmolality,Calculated 284.7 MOS/KG (273-304); Potassium 3.6 MMOL/L (3.5-5.1)
--- NOTE | 2017-01-30 09:23 | Infectious Disease Progress ---
Assessment and Plan (1) History of UTI Status: Acute Current Visit: No (2) Mental status change Status: Acute Assessment and plan: Resolved Current Visit: No (3) Right lower lobe pneumonia Status: Acute Assessment and plan: Patient clinically looking better chest x-ray also improving. Renal function remains ok on gent. Recommendations: COntinue antibiotics and renal function monitoring on gent. Would complete 7 days of therapy. Current Visit: No (4) Urinary tract infection Status: Acute Assessment and plan: Resolved Current Visit: Yes Qualifiers: Urinary tract infection type: acute cystitis Hematuria presence: with hematuria Qualified Code(s): N30.01 - Acute cystitis with hematuria Infectious Disease - PN: Subj Interval history: Patient indicates she is feeling okay, tolerating antibiotics without nausea vomiting or diarrhea. She has been afebrile. No cough or breathing difficulties. Infectious Disease Exam (PN) - Constitutional Vitals: Temp Pulse Resp BP Pulse Ox 97.8 F 95 H 20 97/69 98 01/30/17 04:00 01/30/17 06:54 01/30/17 06:54 01/30/17 04:00 01/30/17 06:54 General appearance: normal weight, no acute distress Exam: General appearance: Comfortable and interactive - Eye Eye exam: Present: EOMI. no icterus Pupils: Present: BRADLEY - ENT ENT exam: trach noted without secretions, no oral exudates - Respiratory Respiratory exam: vesicular BS, no crepitations or wheezes - Cardiovascular Cardiovascular exam: regular rate and rhythm, no murmurs - GI/Abdominal GI/Abdominal exam: PEG present, normal bowel sounds, soft, non-tender, no organomegaly or mass - Extremities Exam Extremities exam: no edema - Skin Skin exam: no rash Results - Labs CBC & BMP: 01/29/17 05:29 01/30/17 06:09 Lab Results: I have reviewed the past 24 hour labs - Diagnostic Findings Procedure: Chest x-ray: image reviewed by me, report reviewed by me (Still with basilar opacities bilaterally but overall improved)
[2017-01-30] MEDS: LACTOBACILLUS ACIDOPHILUS/BULGARICUS 1 PACKET PEG SCH ×4 (10:44→21:39)
[2017-01-30] MEDS: CHOLECALCIFEROL 1,000 UNIT TABLET PO SCH (10:44)
[2017-01-30] MEDS: NYSTATIN POWDER 15 GM BOTTLE TOP SCH ×3 (10:45→21:40)
[2017-01-30] MEDS: MENTHOL/ZINC OXIDE OINT 71 GM JAR TOP SCH ×2 (10:46→21:40)
[2017-01-30] MEDS: LEVOFLOXACIN 750 MG TABLET PEG SCH (10:46)
[2017-01-30] MEDS: MUPIROCIN 2% OINT 22 GM TUBE TOP SCH ×2 (10:47→21:40)
[2017-01-30] MEDS: METOCLOPRAMIDE 10 MG/10 ML UDCUP PEG SCH ×4 (10:47→21:39)
[2017-01-30] MEDS: levETIRAcetam LIQUID 100 MG/ML 30 ML/BOTTLE PO SCH ×2 (10:54→21:39)
--- NOTE | 2017-01-30 10:56 | Hospitalist Progress Note ---
Assessment and Plan - Time spent with patient Time spent with patient: Greater than 30 minutes (1) Pneumonia Status: Acute Assessment and plan: Continue abx as per ID. Appreciate their assistance. Current Visit: Yes Qualifiers: Pneumonia type: due to other aerobic Gram-negative bacteria Laterality: right Lung location: middle lobe of lung Qualified Code(s): J15.6 - Pneumonia due to other aerobic Gram-negative bacteria (2) Urinary tract infection Status: Acute Assessment and plan: Cultures returned. Continue abx as per ID. Current Visit: Yes Qualifiers: Urinary tract infection type: acute cystitis Hematuria presence: with hematuria Qualified Code(s): N30.01 - Acute cystitis with hematuria (3) Sacral decubitus ulcer Status: Chronic Assessment and plan: Wound care involved. Current Visit: Yes (4) Quadriplegia Status: Chronic Assessment and plan: Preventative measures. Current Visit: No (5) Seizure Status: Chronic Assessment and plan: Continue medications. Current Visit: No (6) Diarrhea Status: Acute Assessment and plan: obtain stool studies Current Visit: Yes Hospitalist: Subjective Interval history: No complaints, no overnight events. Patient has watery stool. Exam - Constitutional Vitals: Period Temp Pulse Resp BP Sys/Vargas Pulse Ox Last 24 Hr 97.5 F-98.7 F 76-107 17-24 97-139/65-82 94-99 General appearance: no acute distress - Head Head exam: Present: normocephalic, atraumatic - Eye Eye exam: Present: EOMI Pupils: Present: BRADLEY - ENT ENT exam: Present: normal exam - Neck Neck exam: Present: normal inspection - Respiratory Respiratory exam: Present: clear to auscultation bilaterally. Absent: rhonchi, wheezes - Cardiovascular Cardiovascular exam: Present: regular rate and rhythm. Absent: gallop, rubs, systolic murmur - GI/Abdominal GI/Abdominal exam: Present: normal bowel sounds, soft. Absent: distended, firm , guarding, tenderness, rebound - Extremities Exam Extremities exam: Present: normal inspection. Absent: calf tenderness, edema Results - Labs CBC & BMP: 01/29/17 05:29 17 06:09 Lab Results: I have reviewed the past 24 hour labs
--- NOTE | 2017-01-30 11:48 | Pulmonology Progress Note ---
Pulmonary - PN: Subj Interval history: Daryl Rangel, ANP-BC, GNP-BC, acting as scribe for Dr. José Antonio Rojas This is a 56-year-old white female custodial patient who we saw in initial pulmonary consultation on 01/26/2017. At that time, our impressions were: 1. Acute right lower lung pneumonia. Agree with covering for gram-positive cocci and gram-negative rods. 2. Trach. 3. Urinary tract infection with Klebsiella 4. Colonization of the nares with MRSA 5. Quadriplegia 6. PEG tube 7. History of dementia 8. History of seizure disorder 9. See past history 01/27/2017. Patient is comfortable in no apparent distress today. Her chest x- ray shows residual right lower lung and left lower lung infiltrate compatible with pneumonia sputum collected 01/25/2017 is growing a gram-negative kayode. No ID and no sensitivities have been reported. Stools are negative for C. difficile. Urine from 01/24/2017 is growing Klebsiella. All blood cultures are negative. White count is dropped to 5200 with 61 segs 23 lymphs and 8 monos. Posttransfusion H&H is 10.5/32.1. Platelets are 195,000. Sodium 149. Potassium 3.6. Creatinine is dropped to 0.50 with a BUN of 7. Vitamin D level is low and will be replaced. Infectious diseases on the case 01/28/2017. This patient continues to be very comfortable and is doing well. She is alert and tries to talk a little. Her chest x-ray shows a small right perihilar infiltrate. There is slight increase in interstitial markings at both bases. No congestive heart failure. Sputum's have grown Acinetobacter and Pseudomonas arch stenosis. Urine has grown Klebsiella. ABGs on FiO2 35% show a pH 7.43, PCO2 38, PO2 of 93 and bicarb 25.7. White count is dropped to 5800. H&H is 10.9/32.5. Antibiotics have been reviewed. We will continue the patient's meropenem. I have added gentamicin have asked for pharmacology consult. Will follow daily BMPs 01/29/2017. Patient had an uneventful night and she is comfortable this morning. Microbiology, see my note 01/28/2017. Electrolytes are normal. Creatinine is 0.6. H&H 11.1/34.3. White count is dropped 6800 with 67 segs 21 lymphs and 7 monos. Overall this patient continues to improve. 01/30/2017. The patient continues to do well from a pulmonary standpoint. Her chest x-ray today shows that for all intents and purposes the right perihilar infiltrate has resolved. She is being followed from an infectious disease standpoint by Dr. Elizabeth. Medications have been reviewed. We made no changes today. Labs have been reviewed. Creatinine 0.50, BUN 8, sodium 145, potassium 3.6, magnesium 2.1; gentamicin peak is elevated at 8.8. This is being monitored by pharmacology. Trough yesterday was 0.9. Exam (Progress Note) - Constitutional Vitals: Period Temp Pulse Resp BP Sys/Vargas Pulse Ox Last 24 Hr 97.5 F-98.7 F 76-107 17-24 97-139/65-82 94-99 Exam: Chest with very mild large airway congestion; no wheeze Heart no gallop Abdomen is nontender and nondistended; bowel sounds are positive 4 Extremities with nothing to suggest acute deep venous thrombophlebitis Psychiatric/neurologic unchanged Plan: The patient continues to improve from a pulmonary standpoint. Antibiotics as per Dr. Elizabeth. We will sign off. Please reconsult as needed. Results - Labs CBC & BMP: 01/29/17 05:29 01/30/17 06:09
[2017-01-30] MEDS: ENOXAPARIN 40 MG/0.4 ML SYRINGE SUBCUT SCH (21:39)
[2017-01-30] MEDS: CITALOPRAM 20 MG TABLET PEG SCH (21:40)
[2017-01-31] MEDS: MEROPENEM 1,000 MG in SODIUM CHLORIDE 0.9% 100 ML IV SCH ×3 (01:09→17:51)
[2017-01-31] MEDS: ALBUTEROL/IPRATROPIUM 3 ML NEB RESP TX SCH ×4 (01:37→19:12)
[2017-01-31] MEDS: DEXTROSE 5% NACL 0.45% 1,000 ML IV SCH ×3 (05:46→17:56)
[2017-01-31] MEDS: LEVOFLOXACIN 750 MG TABLET PEG SCH (08:01)
[2017-01-31] MEDS: LACTOBACILLUS ACIDOPHILUS/BULGARICUS 1 PACKET PEG SCH ×4 (08:01→21:29)
[2017-01-31] MEDS: levETIRAcetam LIQUID 100 MG/ML 30 ML/BOTTLE PO SCH ×2 (08:01→21:28)
[2017-01-31] MEDS: MUPIROCIN 2% OINT 22 GM TUBE TOP SCH ×2 (08:01→21:29)
[2017-01-31] MEDS: MENTHOL/ZINC OXIDE OINT 71 GM JAR TOP SCH ×2 (08:01→21:29)
[2017-01-31] MEDS: NYSTATIN POWDER 15 GM BOTTLE TOP SCH ×3 (08:01→21:30)
[2017-01-31] MEDS: METOCLOPRAMIDE 10 MG/10 ML UDCUP PEG SCH ×4 (08:02→21:29)
[2017-01-31] MEDS: CHOLECALCIFEROL 1,000 UNIT TABLET PO SCH (08:02)
--- NOTE | 2017-01-31 10:37 | Hospitalist Progress Note ---
Assessment and Plan - Time spent with patient Time spent with patient: Greater than 30 minutes (1) Pneumonia Status: Acute Assessment and plan: Continue abx as per ID. Appreciate their assistance. Current Visit: Yes Qualifiers: Pneumonia type: due to other aerobic Gram-negative bacteria Laterality: right Lung location: middle lobe of lung Qualified Code(s): J15.6 - Pneumonia due to other aerobic Gram-negative bacteria (2) Urinary tract infection Status: Acute Assessment and plan: Cultures returned. Continue abx as per ID. Current Visit: Yes Qualifiers: Urinary tract infection type: acute cystitis Hematuria presence: with hematuria Qualified Code(s): N30.01 - Acute cystitis with hematuria (3) Sacral decubitus ulcer Status: Chronic Assessment and plan: Wound care involved. Current Visit: Yes (4) Quadriplegia Status: Chronic Assessment and plan: Preventative measures. Current Visit: No (5) Seizure Status: Chronic Assessment and plan: Continue medications. Current Visit: No (6) Diarrhea Status: Acute Assessment and plan: Workup negative. Current Visit: Yes Hospitalist: Subjective Interval history: No complaints or overnight events. Exam - Constitutional Vitals: Period Temp Pulse Resp BP Sys/Vargas Pulse Ox Last 24 Hr 97.4 F-98.3 F 73-99 18-24 100-134/60-84 97-100 General appearance: normal weight, no acute distress - Head Head exam: Present: normocephalic, atraumatic - Eye Eye exam: Present: EOMI Pupils: Present: BRADLEY - ENT ENT exam: Present: normal exam - Neck Neck exam: Present: normal inspection - Respiratory Respiratory exam: Present: clear to auscultation bilaterally. Absent: rhonchi, wheezes - Cardiovascular Cardiovascular exam: Present: regular rate and rhythm. Absent: gallop, rubs, systolic murmur - GI/Abdominal GI/Abdominal exam: Present: normal bowel sounds, soft. Absent: distended, firm , guarding, tenderness, rebound - Extremities Exam Extremities exam: Present: normal inspection. Absent: calf tenderness, edema Results - Labs CBC & BMP: 01/29/17 05:29 01/30/17 06:09 Lab Results: I have reviewed the past 24 hour labs
[2017-01-31] MEDS: GENTAMICIN INJ 120 MG in PREMIX 1 EACH IV SCH (11:27)
[2017-01-31] MEDS: CITALOPRAM 20 MG TABLET PEG SCH (21:28)
[2017-01-31] MEDS: ENOXAPARIN 40 MG/0.4 ML SYRINGE SUBCUT SCH (21:29)
[2017-02-01] MEDS: MEROPENEM 1,000 MG in SODIUM CHLORIDE 0.9% 100 ML IV SCH ×3 (00:03→16:55)
[2017-02-01] MEDS: ALBUTEROL/IPRATROPIUM 3 ML NEB RESP TX SCH ×4 (00:53→19:46)
[2017-02-01 04:59] LABS: Basophils % 0.2 % (0.0-0.8); Eosinophils # 0.4 10*3/uL (0.0-0.87); Eosinophils % 6.6 % (0.00-10.9); Hematocrit 33.9 VOL% (35.7-47.0); Immature Granulocytes % 0.6 %; Immature Granulocytes Absolute 0.04 #; Lymphocytes # 1.4 10*3/uL (1.4-4.0); Lymphocytes % 21.5 % (21.3-54.2); Mean Corpuscular HGB Conc 32.4 GM/DL (32-36); Mean Corpuscular Hemoglobin 30 PG (27-34); Mean Corpuscular Volume 91.4 FL (87-102); Mean Platelet Volume 9.8 FL (9.6-12.0); Monocytes # 0.4 10*3/uL (0.11-0.8); Monocytes % 6.9 % (1.7-12.7); Neutrophils # 4.1 10*3/uL (1.4-7.4); Neutrophils % 64.2 % (38.7-73.9); Platelet Count 170 T/CUMM (130-400); Red Blood Count 3.71 MC/CUMM (3.8-5.5); Red Cell Distribution Width 14.9 % (9.3-17.3); White Blood Count 6.4 T/CUMM (4-12)
[2017-02-01 05:21] LABS: Calcium 8.4 MG/DL (8.5-10.1); Osmolality,Calculated 286.6 MOS/KG (273-304); Potassium 3.1 MMOL/L (3.5-5.1)
[2017-02-01] MEDS: DEXTROSE 5% NACL 0.45% 1,000 ML IV SCH ×2 (06:00→14:40)
[2017-02-01] MEDS: GENTAMICIN INJ 120 MG in PREMIX 1 EACH IV SCH ×2 (06:01→23:22)
[2017-02-01] MEDS: levETIRAcetam LIQUID 100 MG/ML 30 ML/BOTTLE PO SCH ×2 (09:08→21:31)
[2017-02-01] MEDS: MENTHOL/ZINC OXIDE OINT 71 GM JAR TOP SCH ×2 (09:08→21:32)
[2017-02-01] MEDS: LACTOBACILLUS ACIDOPHILUS/BULGARICUS 1 PACKET PEG SCH ×4 (09:08→21:33)
[2017-02-01] MEDS: MUPIROCIN 2% OINT 22 GM TUBE TOP SCH ×2 (09:08→21:32)
[2017-02-01] MEDS: LEVOFLOXACIN 750 MG TABLET PEG SCH (09:08)
[2017-02-01] MEDS: CHOLECALCIFEROL 1,000 UNIT TABLET PO SCH (09:09)
[2017-02-01] MEDS: NYSTATIN POWDER 15 GM BOTTLE TOP SCH ×3 (09:09→21:33)
[2017-02-01] MEDS: METOCLOPRAMIDE 10 MG/10 ML UDCUP PEG SCH ×4 (09:09→21:32)
--- NOTE | 2017-02-01 10:42 | Hospitalist Progress Note ---
Assessment and Plan - Time spent with patient Time spent with patient: Greater than 30 minutes (1) Pneumonia Status: Acute Assessment and plan: Continue abx as per ID. Appreciate their assistance. Current Visit: Yes Qualifiers: Pneumonia type: due to other aerobic Gram-negative bacteria Laterality: right Lung location: middle lobe of lung Qualified Code(s): J15.6 - Pneumonia due to other aerobic Gram-negative bacteria (2) Urinary tract infection Status: Acute Assessment and plan: Cultures returned. Continue abx as per ID. Current Visit: Yes Qualifiers: Urinary tract infection type: acute cystitis Hematuria presence: with hematuria Qualified Code(s): N30.01 - Acute cystitis with hematuria (3) Sacral decubitus ulcer Status: Chronic Assessment and plan: Wound care involved. Current Visit: Yes (4) Quadriplegia Status: Chronic Assessment and plan: Preventative measures. Current Visit: No (5) Seizure Status: Chronic Assessment and plan: Continue medications. Current Visit: No Hospitalist: Subjective Interval history: No complaints or overnight events. Exam - Constitutional Vitals: Period Temp Pulse Resp BP Sys/Vargas Pulse Ox Last 24 Hr 97.2 F-98.4 F 68-102 16-20 93-132/52-84 96-99 General appearance: no acute distress - Head Head exam: Present: normocephalic, atraumatic - Eye Eye exam: Present: EOMI Pupils: Present: BRADLEY - ENT ENT exam: Present: normal exam - Neck Neck exam: Present: other (Tracheostomy) - Respiratory Respiratory exam: Present: clear to auscultation bilaterally. Absent: rhonchi, wheezes - Cardiovascular Cardiovascular exam: Present: regular rate and rhythm. Absent: gallop, rubs, systolic murmur - GI/Abdominal GI/Abdominal exam: Present: normal bowel sounds, soft. Absent: distended, firm , guarding, tenderness, rebound - Extremities Exam Extremities exam: Present: normal inspection. Absent: calf tenderness, edema Results - Labs CBC & BMP: 02/01/17 04:33 02/01/17 04:33 Lab Results: I have reviewed the past 24 hour labs
[2017-02-01] MEDS: ENOXAPARIN 40 MG/0.4 ML SYRINGE SUBCUT SCH (21:31)
[2017-02-01] MEDS: CITALOPRAM 20 MG TABLET PEG SCH (21:31)
[2017-02-02] MEDS: ALBUTEROL/IPRATROPIUM 3 ML NEB RESP TX SCH ×4 (00:03→19:32)
[2017-02-02] MEDS: MEROPENEM 1,000 MG in SODIUM CHLORIDE 0.9% 100 ML IV SCH ×2 (01:35→09:19)
[2017-02-02] MEDS: DEXTROSE 5% NACL 0.45% 1,000 ML IV SCH ×3 (01:46→21:21)
[2017-02-02 06:05] LABS: Calcium 8.7 MG/DL (8.5-10.1); Magnesium 2.2 MG/DL (1.8-2.4); Osmolality,Calculated 282.8 MOS/KG (273-304); Phosphorous 2.3 MG/DL (2.5-4.9); Potassium 3.3 MMOL/L (3.5-5.1); Prealbumin 34.1 MG/DL (20-40)
[2017-02-02] MEDS: POTASSIUM CHLORIDE RIDER 10 MEQ in PREMIX 1 EACH IV PRN (07:38)
[2017-02-02] MEDS: METOCLOPRAMIDE 10 MG/10 ML UDCUP PEG SCH ×4 (09:17→21:23)
[2017-02-02] MEDS: LEVOFLOXACIN 750 MG TABLET PEG SCH (09:17)
[2017-02-02] MEDS: LACTOBACILLUS ACIDOPHILUS/BULGARICUS 1 PACKET PEG SCH ×4 (09:17→21:25)
[2017-02-02] MEDS: levETIRAcetam LIQUID 100 MG/ML 30 ML/BOTTLE PO SCH ×2 (09:17→21:21)
[2017-02-02] MEDS: NYSTATIN POWDER 15 GM BOTTLE TOP SCH ×3 (09:17→22:05)
[2017-02-02] MEDS: MENTHOL/ZINC OXIDE OINT 71 GM JAR TOP SCH ×2 (09:17→21:21)
[2017-02-02] MEDS: CHOLECALCIFEROL 1,000 UNIT TABLET PO SCH (09:17)
[2017-02-02] MEDS: MUPIROCIN 2% OINT 22 GM TUBE TOP SCH ×2 (09:17→21:21)
--- NOTE | 2017-02-02 10:30 | Hospitalist Progress Note ---
Assessment and Plan - Time spent with patient Time spent with patient: Greater than 30 minutes (1) Pneumonia Status: Acute Assessment and plan: Continue abx as per ID. Appreciate their assistance. Current Visit: Yes Qualifiers: Pneumonia type: due to other aerobic Gram-negative bacteria Laterality: right Lung location: middle lobe of lung Qualified Code(s): J15.6 - Pneumonia due to other aerobic Gram-negative bacteria (2) Urinary tract infection Status: Acute Assessment and plan: Cultures returned. Continue abx as per ID. Current Visit: Yes Qualifiers: Urinary tract infection type: acute cystitis Hematuria presence: with hematuria Qualified Code(s): N30.01 - Acute cystitis with hematuria (3) Sacral decubitus ulcer Status: Chronic Assessment and plan: Wound care involved. Current Visit: Yes (4) Quadriplegia Status: Chronic Assessment and plan: Preventative measures. Current Visit: No (5) Seizure Status: Chronic Assessment and plan: Continue medications. Current Visit: No Hospitalist: Subjective Interval history: No complaints or overnight events. Exam - Constitutional Vitals: Period Temp Pulse Resp BP Sys/Vargas Pulse Ox Last 24 Hr 97.1 F-98.3 F 62-88 17-24 99-121/58-72 94-100 General appearance: no acute distress - Head Head exam: Present: normocephalic, atraumatic - Eye Eye exam: Present: EOMI Pupils: Present: BRADLEY - ENT ENT exam: Present: other (trach) - Neck Neck exam: Present: normal inspection - Respiratory Respiratory exam: Present: clear to auscultation bilaterally. Absent: rhonchi, wheezes - Cardiovascular Cardiovascular exam: Present: regular rate and rhythm. Absent: gallop, rubs, systolic murmur - GI/Abdominal GI/Abdominal exam: Present: normal bowel sounds, soft. Absent: distended, firm , guarding, tenderness, rebound - Extremities Exam Extremities exam: Present: normal inspection. Absent: calf tenderness, edema Results - Labs CBC & BMP: 02/01/17 04:33 02/02/17 04:52 Lab Results: I have reviewed the past 24 hour labs
--- NOTE | 2017-02-02 10:38 | Infectious Disease Progress ---
Assessment and Plan (1) History of UTI Status: Acute Current Visit: No (2) Mental status change Status: Acute Assessment and plan: Resolved Current Visit: No (3) Right lower lobe pneumonia Status: Acute Assessment and plan: Patient clinically looking better. Renal function remains ok on gent. Recommendations: COntinue antibiotics [levofloxacin and gentamicin] and renal function monitoring on gent. Would complete 7 days of therapy thus 2 more days to go. Current Visit: No (4) Urinary tract infection Status: Acute Assessment and plan: Resolved therefore I am stopping the meropenem today. Current Visit: Yes Qualifiers: Urinary tract infection type: acute cystitis Hematuria presence: with hematuria Qualified Code(s): N30.01 - Acute cystitis with hematuria Infectious Disease - PN: Subj Interval history: Patient doing well, no fever, alert and interactive. No problems over the weekend according to nurses. She does not have any significant tracheal secretions. Infectious Disease Exam (PN) - Constitutional Vitals: Temp Pulse Resp BP Pulse Ox 97.4 F L 68 20 99/64 98 02/02/17 03:50 02/02/17 07:55 02/02/17 08:00 02/02/17 03:50 02/02/17 07:55 General appearance: no acute distress Exam: General appearance: Comfortable and interactive - Eye Eye exam: Present: EOMI. no icterus Pupils: Present: BRADLEY - ENT ENT exam: trach noted without secretions, no oral exudates - Respiratory Respiratory exam: vesicular BS, no crepitations or wheezes - Cardiovascular Cardiovascular exam: regular rate and rhythm, no murmurs - GI/Abdominal GI/Abdominal exam: PEG present, normal bowel sounds, soft, non-tender, no organomegaly or mass - Extremities Exam Extremities exam: no edema - Skin Skin exam: no rash Results - Labs CBC & BMP: 02/01/17 04:33 02/02/17 04:52 Lab Results: I have reviewed the past 24 hour labs
--- NOTE | 2017-02-02 11:23 | Physician Query Form ---
CLICK EDIT DOCUMENT TO SELECT QUERY ANSWER --> OK --> SIGN Mimi Horton RN, CCDS Certified Clinical [employer] Operator W) [phone] (f) [phone] [email or web address] PROVIDERS: Make your selection(s) from the choices in EACH section by typing an "x" and enter comments in the comment section. Please use your independent medical judgment in providing your response. This request does not imply that any particular answer is desired or expected. CLINICAL INDICATORS: (Providers should not edit this section) The medical record indicates that the patient was admitted with pneumonia, AMS, Mental Status change "likely due to infection", had CT of brain, "mental status is now back to baseline in response to antibiotics and IV hydration". ACUITY: (x ) Acute ( ) Acute on Chronic ( ) Chronic ( ) Clinically unable to determine NATURE: ( ) Delirium due to general medical condition ( ) Dementia ( ) Encephalopathy ( x) Infectious Encephalopathy ( ) Unconscious ( ) Transient level of awareness ( ) Comatose ( ) Locked-in State ( ) Persistent Vegetative State ( ) Other, please specify: ( ) Clinically unable to determine Please indicate the underlying cause of the altered mental status (CHECK ALL THAT APPLY): ( ) Baseline dementia ( ) Alzheimer's disease ( ) Parkinson's disease ( ) Lewy body dementia ( ) Acute stroke ( ) Late effect of stroke ( ) Reactive (from emotional stress, psychological trauma) ( ) Due to narcotics/other drugs ( ) Post procedural delirium ( ) Transient ischemic attack ( ) Generalized cerebral edema ( ) Normal pressure hydrocephalus ( ) Psychiatric illness ( ) Other, please specify: ( ) Clinically unable to determine Please indicate if there is an infection, sepsis, dehydration or specific organ failure that is causing the dementia. Be specific with clarifying the relationship between that process and the mental status change. COMMENTS: PLEASE ALSO DOCUMENT RESPONSE IN PROGRESS NOTES AND/OR DISCHARGE SUMMARY Use of terms such as suspected, likely, or probable (associated with a specific diagnosis that is being evaluated, monitored, or treated as if it exists) are acceptable and can be restated in the discharge summary if not ruled out. MTDD
[2017-02-02] MEDS: GENTAMICIN INJ 120 MG in PREMIX 1 EACH IV SCH (18:04)
[2017-02-02] MEDS: ENOXAPARIN 40 MG/0.4 ML SYRINGE SUBCUT SCH (21:23)
[2017-02-02] MEDS: CITALOPRAM 20 MG TABLET PEG SCH (21:23)
[2017-02-03] MEDS: ALBUTEROL/IPRATROPIUM 3 ML NEB RESP TX SCH ×4 (00:12→19:47)
[2017-02-03 05:48] LABS: Basophils % 0.3 % (0.0-0.8); Eosinophils # 0.4 10*3/uL (0.0-0.87); Eosinophils % 5.1 % (0.00-10.9); Hematocrit 38.1 VOL% (35.7-47.0); Hemoglobin 12.5 GM/DL (12.0-16.0); Immature Granulocytes % 0.6 %; Immature Granulocytes Absolute 0.04 #; Lymphocytes # 1.9 10*3/uL (1.4-4.0); Lymphocytes % 27.3 % (21.3-54.2); Mean Corpuscular HGB Conc 32.8 GM/DL (32-36); Mean Corpuscular Hemoglobin 30 PG (27-34); Mean Corpuscular Volume 91.8 FL (87-102); Mean Platelet Volume 9.8 FL (9.6-12.0); Monocytes # 0.6 10*3/uL (0.11-0.8); Neutrophils % 58.7 % (38.7-73.9); Platelet Count 160 T/CUMM (130-400); Red Blood Count 4.15 MC/CUMM (3.8-5.5); Red Cell Distribution Width 14.6 % (9.3-17.3); White Blood Count 6.8 T/CUMM (4-12)
[2017-02-03] MEDS: METOCLOPRAMIDE 10 MG/10 ML UDCUP PEG SCH ×4 (08:44→21:18)
[2017-02-03] MEDS: NYSTATIN POWDER 15 GM BOTTLE TOP SCH ×3 (08:44→21:20)
[2017-02-03] MEDS: MUPIROCIN 2% OINT 22 GM TUBE TOP SCH ×2 (08:44→21:22)
[2017-02-03] MEDS: LACTOBACILLUS ACIDOPHILUS/BULGARICUS 1 PACKET PEG SCH ×4 (08:44→21:19)
[2017-02-03] MEDS: DEXTROSE 5% NACL 0.45% 1,000 ML IV SCH ×2 (08:44→17:59)
[2017-02-03] MEDS: MENTHOL/ZINC OXIDE OINT 71 GM JAR TOP SCH ×2 (08:44→21:20)
[2017-02-03] MEDS: CHOLECALCIFEROL 1,000 UNIT TABLET PO SCH (08:45)
[2017-02-03] MEDS: levETIRAcetam LIQUID 100 MG/ML 30 ML/BOTTLE PO SCH ×2 (08:45→21:20)
[2017-02-03] MEDS: DESITIN 4OZ/NYSTATIN 15 GRAM MIXTURE PASTE TOP SCH ×2 (08:45→21:20)
[2017-02-03] MEDS: LEVOFLOXACIN 750 MG TABLET PEG SCH (08:45)
--- NOTE | 2017-02-03 09:22 | Infectious Disease Progress ---
Assessment and Plan (1) History of UTI Status: Acute Current Visit: No (2) Mental status change Status: Acute Assessment and plan: Resolved Current Visit: No (3) Right lower lobe pneumonia Status: Acute Assessment and plan: Patient clinically getting better. Renal function has been normal on gent. Recommendations: COntinue antibiotics [levofloxacin and gentamicin] and renal function monitoring on gent. Would complete 7 days of therapy thus 1 more day to go. Current Visit: No (4) Urinary tract infection Status: Acute Assessment and plan: Treated Current Visit: Yes Qualifiers: Urinary tract infection type: acute cystitis Hematuria presence: with hematuria Qualified Code(s): N30.01 - Acute cystitis with hematuria Infectious Disease - PN: Subj Interval history: No new issues, patient afebrile. She indicates that she had a good night last night. No breathing difficulties. Infectious Disease Exam (PN) - Constitutional Vitals: Temp Pulse Resp BP Pulse Ox 97.5 F L 73 20 99/55 98 02/03/17 04:00 02/03/17 04:00 02/03/17 05:59 02/03/17 04:00 02/03/17 04:00 General appearance: no acute distress Exam: General appearance: Comfortable - Eye Eye exam: Present: EOMI. no icterus Pupils: Present: BRADLEY - ENT ENT exam: trach noted without secretions, no oral exudates - Respiratory Respiratory exam: vesicular BS, no crepitations or wheezes - Cardiovascular Cardiovascular exam: regular rate and rhythm, no murmurs - GI/Abdominal GI/Abdominal exam: PEG present, normal bowel sounds, soft, non-tender, no organomegaly or mass - Extremities Exam Extremities exam: no edema - Skin Skin exam: no rash Results - Labs CBC & BMP: 02/03/17 05:07 02/02/17 04:52 Lab Results: I have reviewed the past 24 hour labs
--- NOTE | 2017-02-03 09:38 | Hospitalist Progress Note ---
Assessment and Plan - Time spent with patient Time spent with patient: Greater than 30 minutes (1) Pneumonia Status: Acute Assessment and plan: Continue abx as per ID. Appreciate their assistance. Current Visit: Yes Qualifiers: Pneumonia type: due to other aerobic Gram-negative bacteria Laterality: right Lung location: middle lobe of lung Qualified Code(s): J15.6 - Pneumonia due to other aerobic Gram-negative bacteria (2) Urinary tract infection Status: Acute Assessment and plan: Cultures returned. Continue abx as per ID. Current Visit: Yes Qualifiers: Urinary tract infection type: acute cystitis Hematuria presence: with hematuria Qualified Code(s): N30.01 - Acute cystitis with hematuria (3) Sacral decubitus ulcer Status: Chronic Assessment and plan: Wound care involved. Current Visit: Yes (4) Quadriplegia Status: Chronic Assessment and plan: Preventative measures. Current Visit: No (5) Seizure Status: Chronic Assessment and plan: Continue medications. Current Visit: No Hospitalist: Subjective Interval history: No complaints or overnight events. Exam - Constitutional Vitals: Period Temp Pulse Resp BP Sys/Vargas Pulse Ox Last 24 Hr 97.2 F-98.4 F 73-91 16-24 89-121/55-72 90-99 General appearance: no acute distress - Head Head exam: Present: normocephalic, atraumatic - Eye Eye exam: Present: EOMI Pupils: Present: BRADLEY - ENT ENT exam: Present: normal exam - Neck Neck exam: Present: normal inspection - Respiratory Respiratory exam: Present: clear to auscultation bilaterally. Absent: rhonchi, wheezes - Cardiovascular Cardiovascular exam: Present: regular rate and rhythm. Absent: gallop, rubs, systolic murmur - GI/Abdominal GI/Abdominal exam: Present: normal bowel sounds, soft. Absent: distended, firm , guarding, tenderness, rebound - Extremities Exam Extremities exam: Present: normal inspection. Absent: calf tenderness, edema Results - Labs CBC & BMP: 02/03/17 05:07 02/02/17 04:52 Lab Results: I have reviewed the past 24 hour labs
[2017-02-03] MEDS: GENTAMICIN INJ 120 MG in PREMIX 1 EACH IV SCH (11:24)
[2017-02-03] MEDS: ENOXAPARIN 40 MG/0.4 ML SYRINGE SUBCUT SCH (21:19)
[2017-02-03] MEDS: CITALOPRAM 20 MG TABLET PEG SCH (21:21)
[2017-02-04] MEDS: ALBUTEROL/IPRATROPIUM 3 ML NEB RESP TX SCH ×2 (00:03→07:56)
[2017-02-04] MEDS: GENTAMICIN INJ 120 MG in PREMIX 1 EACH IV SCH (05:49)
[2017-02-04] MEDS: DEXTROSE 5% NACL 0.45% 1,000 ML IV SCH (05:49)
[2017-02-04] MEDS: NYSTATIN POWDER 15 GM BOTTLE TOP SCH (09:27)
[2017-02-04] MEDS: MENTHOL/ZINC OXIDE OINT 71 GM JAR TOP SCH (09:27)
[2017-02-04] MEDS: DESITIN 4OZ/NYSTATIN 15 GRAM MIXTURE PASTE TOP SCH (09:27)
[2017-02-04] MEDS: MUPIROCIN 2% OINT 22 GM TUBE TOP SCH (09:27)
[2017-02-04] MEDS: LACTOBACILLUS ACIDOPHILUS/BULGARICUS 1 PACKET PEG SCH (09:28)
[2017-02-04] MEDS: METOCLOPRAMIDE 10 MG/10 ML UDCUP PEG SCH (09:28)
[2017-02-04] MEDS: CHOLECALCIFEROL 1,000 UNIT TABLET PO SCH (09:28)
[2017-02-04] MEDS: LEVOFLOXACIN 750 MG TABLET PEG SCH (09:28)
--- NOTE | 2017-02-04 10:11 | Discharge Summary ---
Hospital Course - Hospital Course Hospital Course: Ms. Rossi presented to the hospital with encephalopathy. Head CT was unremarkable for acute process. She was noted to be in severe sepsis secondary to a urinary tract infection and pneumonia. Furthermore the patient was hypernatremic secondary to dehydration. She was initiated on broad-spectrum empiric antibiotics and infectious disease was consulted. Given the patient had tracheostomy, pulmonary was also consulted. Patient's encephalopathy resolved and once hemodynamically stable, she was transferred to the floor. Patient's hypernatremia also resolved. Her urine grew Klebsiella pneumonia ESBL , MRSA was isolated from her naris, and sputum culture grew Pseudomonas aeruginosa and Acinetobacter baumanii and hemolyticus. Antibiotics were adjusted accordingly based on sensitivities. Infectious disease remained on the case until the patient received and completed her full treatment course. By discharge the patient had met maximum benefit of hospitalization. I spent 42 minutes coordinating this discharge. - Time spent with patient Time with patient DS: Greater than 30 minutes Diagnosis - Discharge Diagnosis (1) Pneumonia Status: Acute (2) Urinary tract infection Status: Acute (3) Sacral decubitus ulcer Status: Chronic (4) Quadriplegia Status: Chronic (5) Seizure Status: Chronic Discharge Plan - Discharge Data Disposition: Disch/Xfer to Snf Condition at Discharge: Stable Discharge Diet: advance to your usual diet - Discharge Medications New levETIRAcetam LIQUID [Keppra Liquid] 1,000 mg PO BID ml Continue Docusate Sodium Liquid [Colace Liquid] 100 mg PEG DAILY Lactobacillus Acidophilus [Acidophilus] 2 each PEG QID Lactulose Liquid [Chronulac] 20 gm PO Q4H PRN #0 udcup PRN Reason: Constipation Nystatin Powder [Mycostatin Powder] 1 applic TOP TID powder Albuterol Neb [Proventil Neb] 3 ml INH Q4HR Bisacodyl Supp [Dulcolax Supp] 10 mg RECTAL DAILY PRN PRN Reason: Constipation Ondansetron Tab [Zofran Tab] 4 mg PEG Q4H PRN PRN Reason: Nausea Citalopram Hydrobromide [Citalopram HBr] 15 mg PEG BEDTIME Menthol/Zinc Oxide Oint [Calmoseptine Oint] 1 applic TOP BID HYDROcodone/ACETAMIN 5-325 [[place] 5-325] 1 tablet PEG Q6H PRN PRN Reason: Pain Metoclopramide Liquid [Reglan Liquid] 10 mg PEG Q6H Potassium Chloride Liquid 40 meq PEG DAILY Acetaminophen Tab [Tylenol Tab] 650 mg PEG Q4H PRN PRN Reason: fever, headache/body aches Acetaminophen Supp [Tylenol Supp] 650 mg RECTAL Q4H PRN PRN Reason: Fever Discontinued levETIRAcetam LIQUID [Keppra Liquid] 500 mg PEG BID Cefuroxime Tab [Ceftin] 500 mg PEG Q12HR - Follow Up or Referral - Forms/Instructions Instructions: Pneumonia (DC) Exam - Constitutional Vitals: Period Temp Pulse Resp BP Sys/Vargas Pulse Ox Last 24 Hr 96.1 F-98.2 F 75-94 18-22 96-116/56-69 93-100 General appearance: normal weight, no acute distress - Head Head exam: Present: normal inspection, normocephalic, atraumatic - Eye Eye exam: Present: EOMI Pupils: Present: BRADLEY - ENT ENT exam: Present: other (Tracheostomy) - Respiratory Respiratory exam: Present: clear to auscultation bilaterally. Absent: accessory muscle use, rales, rhonchi, wheezes - Cardiovascular Cardiovascular exam: Present: regular rate and rhythm. Absent: bradycardia, irregular rhythm, systolic murmur - GI/Abdominal GI/Abdominal exam: Present: normal bowel sounds. Absent: ascites, distended, firm, guarding, mass - Extremities Exam Extremities exam: Present: normal inspection. Absent: edema Discharge Results Procedures and tests throughout hospitalization: Pending Orders 02/05/17 04:00 Basic Metabolic Panel MOTH Magnesium MOTH Phosphorous MOTH Prealbumin MOTH DS: Provider Date of admission: 01/24/17 22:45 Primary care physician: . No PCP Attending physician on admission: Severino Simental MD Consults: 01/24/17 23:10 Consult to Wound Care - [place] [CONS] Routine Reason for Wound Care: Wound Care Management Consult Comment: sacral 01/25/17 13:37 Consult to Physician [CONS] Routine Comment: fever, sepsis Consulting Provider: Bonny Elizabeth Consulting Provider Notified: Yes Consult to Specialist Group: Infectious Disease Person Notified: OFFICE Date Notified: 01/26/17 Time Notified: 08:35 Consult Notification Comment: IS HERE SEEING THE PT 01/25/17 20:16 Consult to Dietitian [CONS] Routine Reason for Dietitian: TF-Initiate/Manage 01/26/17 13:18 Consult to Physician [CONS] Routine Comment: right lung pneumonia Consulting Provider: José Antonio Rojas Consulting Provider Notified: Yes Consult to Specialist Group: Pulmonology Person Notified: MALIA Date Notified: 01/26/17 Time Notified: 15:00 01/26/17 15:23 Consult to Dietitian [CONS] Routine Reason for Dietitian: TF-Initiate/Manage 01/28/17 11:01 Consult to Pharmacy [CONS] Routine Reason for Pharmacy Consult: Dose/Manage Gentamicin Discharging clinician: Park Guaman MD Expected date of discharge: 02/04/17
[2017-02-04 10:32] VITALS: BP 99/59
[2017-02-04] MEDS: levETIRAcetam LIQUID 100 MG/ML 30 ML/BOTTLE PO SCH (10:34)
== END 2017-02-04 12:15 | DRG 720 ==
LOC: EDUNIT# → EDBD → N.ED 18:53 → SUATTDRO 22:45 → N.EDINP 22:45 → N.ICU 23:09 → N.2E 01-27 13:28
PROVIDERS: ADMIT Student in an Organized Health Care Education/Training Program; ATTEND Internal Medicine

== ENCOUNTER 2017-02-08 14:41 | Inpatient (IN) ==
[2017-02-08] MEDS ORDERED: SODIUM CHLORIDE 0.9% 500 ML IV STA (15:02)
[2017-02-08 15:41] LABS: Basophils % 0.2 % (0.0-0.8); Hemoglobin 14.8 GM/DL (12.0-16.0); Immature Granulocytes % 0.5 %; Immature Granulocytes Absolute 0.11 #; Lymphocytes # 1.6 10*3/uL (1.4-4.0); Lymphocytes % 7.6 % (21.3-54.2); Mean Corpuscular HGB Conc 32.2 GM/DL (32-36); Mean Corpuscular Hemoglobin 30 PG (27-34); Mean Corpuscular Volume 94.3 FL (87-102); Mean Platelet Volume 10.2 FL (9.6-12.0); Neutrophils # 17.6 10*3/uL (1.4-7.4); Neutrophils % 86.7 % (38.7-73.9); Platelet Count 215 T/CUMM (130-400); Red Blood Count 4.88 MC/CUMM (3.8-5.5); Red Cell Distribution Width 14.8 % (9.3-17.3); White Blood Count 20.3 T/CUMM (4-12)
[2017-02-08] MEDS ORDERED: MEROPENEM 1,000 MG in SODIUM CHLORIDE 0.9% 100 ML IV STA (15:46)
--- NOTE | 2017-02-08 15:57 | XRay Report ---
XR chest 1V portable Indication: Shortness of breath Comparison: Chest x-ray 01/30/2017 Technique: Portable AP chest was performed. Findings: Subtle increase in stranding within the right cardiophrenic angle may reflect scarring or atelectasis. Lungs otherwise clear. Tracheostomy tube is stable. Heart size is stable. Bones and soft tissues demonstrate no significant interval change. Impression: 1. No evidence of acute pathology. 02/08/2017 3:54 PM PROCEDURE INTERPRETED AT [facility] DEPARTMENT OF RADIOLOGY Final Report Signed by: Dr. Chong Horton
[2017-02-08 15:58] LABS: Albumin 2.9 G/DL (3.4-5.0); Bilirubin,Total 0.6 MG/DL (0.2-1.0); Calcium 9.5 MG/DL (8.5-10.1); Osmolality,Calculated 333.2 MOS/KG (273-304); Potassium 4.8 MMOL/L (3.5-5.1); Total Protein 8.5 G/DL (6.4-8.3)
[2017-02-08] MEDS ORDERED: SODIUM CHLORIDE 0.9% 1,000 ML IV STA (16:03)
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
[2017-02-08] MEDS ORDERED: MEROPENEM 1,000 MG in SODIUM CHLORIDE 0.9% 100 ML IV SCH (17:00)
[2017-02-08] MEDS ORDERED: LACTULOSE 20 GM/30 ML UDCUP PO PRN (17:07)
[2017-02-08] MEDS ORDERED: BISACODYL 10 MG SUPP RECTAL PRN (17:07)
[2017-02-08] MEDS ORDERED: ONDANSETRON 4 MG/2 ML VIAL IV PRN (17:19)
[2017-02-08] MEDS: MEROPENEM 1,000 MG in SODIUM CHLORIDE 0.9% 100 ML IV SCH (17:34)
[2017-02-08] MEDS: ENOXAPARIN 40 MG/0.4 ML SYRINGE SUBCUT SCH (17:34)
[2017-02-08] MEDS: METOCLOPRAMIDE 10 MG/10 ML UDCUP PEG SCH ×2 (17:35→23:43)
[2017-02-08] MEDS: SODIUM CHLORIDE 0.45% 1,000 ML IV SCH (17:35)
[2017-02-08] MEDS: LACTOBACILLUS ACIDOPHILUS/BULGARICUS CHEW TABLET PO SCH ×2 (18:04→21:37)
[2017-02-08 18:34] LABS: Apearance,Urine CLOUDY (Clear); Bilirubin,Urine Negative (Negative); Blood, Urine Small mg/dL (Negative); Glucose,Urine (UA) Negative (Negative); Ketones,Urine Negative (Negative); Nitrite,Urine Negative (Negative); Protein,Urine 30 MG/DL; RBC,Urine 301 /HPF (0-4); Urine Specific Gravity 1.016 (1.001-1.035); Urine Urobilinogen < 2.0 EU/DL (0.2-1.0); WBC,Urine 261 /HPF (0-6)
[2017-02-08 18:35] LABS: Urine Color Dark yellow (Yellow)
[2017-02-08 18:45] LABS: Hepatitis A Ab IgM Quant < 0.02 Index; Hepatitis A Ab IgM Result Negative (Negative); Hepatitis B Core IgM Quant 0.19 Index; Hepatitis B Core IgM Result Negative (Negative); Hepatitis B Surface Ag Quant < 0.10 Index; Hepatitis B Surface Ag Result Negative (Negative); Hepatitis C Virus Ab Quant 0.19 Index; Hepatitis C Virus Ab Result Negative (Negative)
--- NOTE | 2017-02-08 18:52 | Hospitalist Progress Note ---
Assessment and Plan (1) Encephalopathy Status: Acute Assessment and plan: Patient has a history of traumatic brain injury, however according to her sister she has had decrease in mental status since this morning with episode of vomiting and probable aspiration. Will continue with neuro checks and treat her underlying infectious and metabolic abnormalities which are likely etiologies of her encephalopathy. Current Visit: Yes (2) Sepsis Status: Acute Assessment and plan: Patient has suspected infection, aspiration pneumonia (urinalysis currently pending, history of recent Clostridium difficile) as well as 2 sirs criteria. She is received 2 L of IV fluids in the emergency department and lactic acid is currently pending. She will be cultured and placed on broad-spectrum IV antibiotics under the sepsis protocol. Current Visit: No (3) Aspiration pneumonia Status: Acute Assessment and plan: Although her x-ray is clear, she does have a leukocytosis and her lung sounds are coarse therefore I suspect she will develop an infiltrate on chest x-ray consistent with an aspiration pneumonitis. She will be cultured and placed on empiric IV antibiotics. With her recent multiple hospitalizations and multiple drug resistant organisms we will begin Merrem and vancomycin at this time. Current Visit: No Qualifiers: Aspiration pneumonia type: due to gastric secretions (4) Dehydration Status: Acute Assessment and plan: She has hypernatremia as well as elevated BUN trending ratio, therefore we will fluid resuscitate and begin free water supplementation to correct her sodium. Follow-up electrolytes and renal function in a.m. Current Visit: No (5) Hypernatremia Status: Acute Current Visit: No (6) Tracheostomy dependent Status: Acute Assessment and plan: Continue local TrachCare as well as O2 supplementation and nebulizer therapy. Current Visit: No (7) Sacral decubitus ulcer Status: Chronic Assessment and plan: Continue to provide local wound care. Current Visit: No (8) Seizure Status: Chronic Assessment and plan: No recent seizure activity noted. Continue her Keppra. Current Visit: No (9) Traumatic brain injury Status: Chronic Current Visit: No (10) Diarrhea Status: Acute Assessment and plan: Patient has a history of diarrhea and according to her sister recent Clostridium difficile. Will repeat stool studies and begin empiric Flagyl. Current Visit: No Exam - Constitutional Vitals: Period Temp Pulse Resp BP Sys/Vargas Pulse Ox Last 24 Hr 115-115 18-20 105/78 95 Results - Labs CBC & BMP: 02/08/17 15:30 05/21/17 15:30 Sepsis - Sepsis Classification of Sepsis: Severe Sepsis Possible / Suspected infection from: Aspiration pneumonia/UTI - Physical Exam Respiratory exam: rhonchi Capillary Refill: Less Than 3 Seconds Peripheral pulses: Radial (L): 3+/4+, Radial (R): 3+/4+ Cardiovascular exam: regular rate and rhythm, tachycardia Skin exam: normal color
[2017-02-08] MEDS: ALBUTEROL 0.63 MG/3 ML NEB RESP TX SCH ×2 (19:28→23:55)
--- NOTE | 2017-02-08 20:01 | Ultrasound Report ---
US abdomen Indication: Elevated liver function studies. Comparison: None. Technique: Using transcutaneous probe, ultrasound imaging of the abdomen was performed. Ultrasound images were captured and stored. Interrogated structures include the liver, gallbladder, spleen, pancreas, right kidney, left kidney, aorta, and inferior vena cava. Findings: Longitudinal images of the aorta demonstrate minimal fusiform enlargement of the mid aorta measuring 2.6 cm in AP dimension. In addition, the lumen of the aorta is somewhat irregular in some areas with echogenic foci compatible with atherosclerotic changes of the lumen. Color flow is present within the inferior vena cava. The visualized portion of the pancreatic head and body are unremarkable. The right hepatic lobe measures 16 cm in craniocaudal dimension. Images submitted of the liver demonstrate no evidence of focal hepatic mass. Color flow is present within the interrogated portal vein. The common bowel duct is enlarged measuring 7.2 mm. Color flow additionally is present within the interrogated hepatic venous segments. Gallbladder cannot be identified and may be surgically absent. The right kidney measures 10.2 cm in craniocaudal dimension and demonstrates presence of mild to moderate hydronephrosis. The left kidney measures 8.7 cm in craniocaudal dimension and also demonstrates evidence of hydronephrosis. Spleen is normal in size and appearance. Images additionally were captured and stored in the urinary bladder. Some bladder wall thickening is suggested, significance of which is uncertain. Impression: 1. Bilateral hydronephrosis is demonstrated. Additionally, there appears to be some bladder wall thickening present. Differential considerations could include cystitis as well as neoplasm. CT may be useful for further characterization. 2. Enlargement of the extrahepatic bile duct is present. The gallbladder cannot be identified. If the gallbladder is surgically absent, enlargement of the extrahepatic bile duct is a nonspecific finding. 3. Minimal fusiform enlargement of the infrarenal abdominal aorta is present. 02/08/2017 7:52 PM PROCEDURE INTERPRETED AT [facility] DEPARTMENT OF RADIOLOGY Final Report Signed by: Dr. Chong Horton
[2017-02-08] MEDS: MENTHOL/ZINC OXIDE OINT 71 GM JAR TOP SCH (20:38)
[2017-02-08] MEDS: levETIRAcetam LIQUID 100 MG/ML 30 ML/BOTTLE PO SCH (20:38)
[2017-02-08] MEDS: VANCOMYCIN INJ 1,000 MG in SODIUM CHLORIDE 0.9% 250 ML IV SCH (20:38)
[2017-02-08] MEDS: NYSTATIN POWDER 15 GM BOTTLE TOP SCH (20:38)
[2017-02-08] MEDS: CITALOPRAM 20 MG TABLET PEG SCH (20:38)
[2017-02-08] MEDS: metroNIDAZOLE 500 MG TABLET PEG SCH (20:38)
[2017-02-09] MEDS: MEROPENEM 1,000 MG in SODIUM CHLORIDE 0.9% 100 ML IV SCH ×2 (01:53→08:02)
[2017-02-09] MEDS: SODIUM CHLORIDE 0.45% 1,000 ML IV SCH ×2 (01:53→08:11)
[2017-02-09] MEDS: ALBUTEROL 0.63 MG/3 ML NEB RESP TX SCH ×6 (02:46→22:34)
[2017-02-09 05:33] LABS: Basophils % 0.2 % (0.0-0.8); Hematocrit 33.7 VOL% (35.7-47.0); Hemoglobin 10.5 GM/DL (12.0-16.0); Immature Granulocytes % 0.5 %; Immature Granulocytes Absolute 0.07 #; Lymphocytes # 1.5 10*3/uL (1.4-4.0); Lymphocytes % 11.6 % (21.3-54.2); Mean Corpuscular HGB Conc 31.2 GM/DL (32-36); Mean Corpuscular Hemoglobin 30 PG (27-34); Mean Platelet Volume 10.2 FL (9.6-12.0); Monocytes # 0.8 10*3/uL (0.11-0.8); Monocytes % 6.3 % (1.7-12.7); Neutrophils # 10.8 10*3/uL (1.4-7.4); Neutrophils % 81.4 % (38.7-73.9); Platelet Count 131 T/CUMM (130-400); Red Blood Count 3.51 MC/CUMM (3.8-5.5); Red Cell Distribution Width 14.9 % (9.3-17.3); White Blood Count 13.3 T/CUMM (4-12)
[2017-02-09] MEDS: METOCLOPRAMIDE 10 MG/10 ML UDCUP PEG SCH ×4 (06:03→23:34)
[2017-02-09 06:05] LABS: Albumin 2.1 G/DL (3.4-5.0); Bilirubin,Total 0.8 MG/DL (0.2-1.0); Calcium 8.6 MG/DL (8.5-10.1); Potassium 3.6 MMOL/L (3.5-5.1); Total Protein 6.1 G/DL (6.4-8.3)
[2017-02-09 06:11] LABS: Band Neutrophils 17 % (0-10); Hypochromasia 1+; Lymphocytes 13 % (20-55); Microcytosis 1+; Platelet Estimate Adequate; Segmented Neutrophils 69 % (50-85); Total Cells Counted 100
--- NOTE | 2017-02-09 07:32 | XRay Report ---
Referring Physician: Bushra [place] Exam: XR chest 1V portable Date: February 09, 2017 at 3:09 AM Reason: Shortness of breath Comparison: Chest one view portable February 08, 2017 Findings: A tracheostomy catheter is again present. The cardiac silhouette is normal in size. There are scattered opacities within both lower lung zones, right greater than left. This is concerning for pneumonia and atelectasis, but other considerations include aspiration. No pneumothorax or definite pleural fluid is identified. The osseous structures appear stable. Impression: There are scattered opacities within the lower lung zones, mainly on the right. The opacities on the right have increased. This is concerning for pneumonia and atelectasis, but other considerations include aspiration. PROCEDURE INTERPRETED AT [facility] DEPARTMENT OF RADIOLOGY Final Report Signed by: Dr. Lamberto Sands
[2017-02-09] MEDS: MENTHOL/ZINC OXIDE OINT 71 GM JAR TOP SCH ×2 (08:01→21:57)
[2017-02-09] MEDS: DOCUSATE SODIUM 100 MG/10 ML UDCUP PEG SCH (08:01)
[2017-02-09] MEDS: LACTOBACILLUS ACIDOPHILUS/BULGARICUS CHEW TABLET PO SCH ×4 (08:02→21:57)
[2017-02-09] MEDS: metroNIDAZOLE 500 MG TABLET PEG SCH (08:02)
[2017-02-09] MEDS: levETIRAcetam LIQUID 100 MG/ML 30 ML/BOTTLE PO SCH ×2 (08:02→21:57)
[2017-02-09] MEDS: NYSTATIN POWDER 15 GM BOTTLE TOP SCH ×3 (08:02→21:57)
[2017-02-09] MEDS: PANTOPRAZOLE 40 MG TABLET PO SCH (08:02)
[2017-02-09] MEDS: VANCOMYCIN INJ 1,000 MG in SODIUM CHLORIDE 0.9% 250 ML IV SCH (08:03)
--- NOTE | 2017-02-09 08:38 | EKG Report ---
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
--- NOTE | 2017-02-09 11:56 | Hospitalist Progress Note ---
Assessment and Plan (1) Sepsis Status: Acute Assessment and plan: Continue IV fluids and antibiotics Current Visit: No (2) Aspiration pneumonia Status: Acute Assessment and plan: cont meropenem but does not have acinetobacter, dr. Cerda consulting Current Visit: No Qualifiers: Aspiration pneumonia type: due to gastric secretions (3) Functional quadriplegia Status: Chronic Current Visit: No (4) Traumatic brain injury Status: Chronic Current Visit: No (5) Encephalopathy Status: Acute Assessment and plan: at baseline Current Visit: Yes (6) Dehydration Status: Acute Assessment and plan: change to D5w at 100 ml/hr, started free water through peg at 50 ml/hr Current Visit: Yes (7) Hypernatremia Status: Acute Assessment and plan: cont free water and recheck sodium in am, need to consider changing nursing homes Current Visit: Yes Hospitalist: Subjective Interval history: Patient is well-known to me. I have seen her on multiple occasions. Thus Dr. Cerda to see her this morning to look at her antibiotics. Patient is mildly hypotensive but is stable. [facility] remains [facility]. Exam - Constitutional Vitals: Period Temp Pulse Resp BP Sys/Vargas Pulse Ox Last 24 Hr 97.5 F-98.6 F 77-115 16-23 86-113/56-78 91-100 Exam: Heart Rate-[RRR] Lungs-[CTAB] GI-[+bs soft, NT] Ext-[no edema] Neuro opens eyes to commands psych [depressed mood and flat affect] General [no acute distress] Results - Labs CBC & BMP: 02/09/17 05:06 02/09/17 05:06 Lab Results: I have reviewed the past 24 hour labs - Diagnostic Findings Procedure: Chest x-ray: report reviewed by me (Bilateral opacities worse on right)
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
[2017-02-09] MEDS: DEXTROSE 5% 1,000 ML IV SCH ×2 (14:46→23:34)
[2017-02-09] MEDS: TOBRAMYCIN INJ 120 MG in SODIUM CHLORIDE 0.9% 100 ML IV SCH (14:47)
[2017-02-09] MEDS: MEROPENEM 2,000 MG in SODIUM CHLORIDE 0.9% 100 ML IV SCH (17:41)
[2017-02-09] MEDS: ENOXAPARIN 40 MG/0.4 ML SYRINGE SUBCUT SCH (17:41)
[2017-02-09] MEDS: CITALOPRAM 20 MG TABLET PEG SCH (21:57)
[2017-02-10] MEDS: MEROPENEM 2,000 MG in SODIUM CHLORIDE 0.9% 100 ML IV SCH ×3 (02:31→16:42)
[2017-02-10] MEDS: ALBUTEROL 0.63 MG/3 ML NEB RESP TX SCH ×5 (03:18→20:08)
[2017-02-10] MEDS: TOBRAMYCIN INJ 120 MG in SODIUM CHLORIDE 0.9% 100 ML IV SCH ×2 (03:38→14:07)
[2017-02-10] MEDS: DEXTROSE 5% 1,000 ML IV SCH ×3 (05:06→21:34)
[2017-02-10] MEDS: METOCLOPRAMIDE 10 MG/10 ML UDCUP PEG SCH ×4 (05:07→23:40)
[2017-02-10 06:55] LABS: Magnesium 1.9 MG/DL (1.8-2.4); Phosphorous 2.8 MG/DL (2.5-4.9); Prealbumin 14.6 MG/DL (20-40)
[2017-02-10] MEDS: MENTHOL/ZINC OXIDE OINT 71 GM JAR TOP SCH ×2 (09:11→20:31)
[2017-02-10] MEDS: DOCUSATE SODIUM 100 MG/10 ML UDCUP PEG SCH (09:12)
[2017-02-10] MEDS: levETIRAcetam LIQUID 100 MG/ML 30 ML/BOTTLE PO SCH ×2 (09:12→20:31)
[2017-02-10] MEDS: NYSTATIN POWDER 15 GM BOTTLE TOP SCH ×3 (09:13→20:31)
[2017-02-10] MEDS: PANTOPRAZOLE 40 MG TABLET PO SCH (09:14)
--- NOTE | 2017-02-10 09:51 | Infectious Disease Progress ---
Assessment and Plan (1) Hypernatremia Status: Acute Assessment and plan: Probably from reduced volume intake. Improving since admission. Current Visit: Yes (2) Altered mental state Status: Acute Assessment and plan: Probably related to hyponatremia. It has improved, she seems back to her baseline. Current Visit: No Qualifiers: Altered mental status type: somnolence Qualified Code(s): R40.0 - Somnolence (3) History of recurrent UTI (urinary tract infection) Status: Acute Assessment and plan: I saw there was yeast in her urine yesterday but today nightly cultures come back negative. Follow-up finalized cultures and if negative stop antibiotics tomorrow. Current Visit: No (4) Right lower lobe pneumonia Status: Acute Assessment and plan: We treated this pneumonia aggressively during her last admission. Her x-ray is actually normal and this admission although on day 2 some opacity developed in the right lung base. The patient's lungs sound clear and that she did not think she has pneumonia clinically. She may have aspirated but her airways have now probably been cleared. Recommendations: If no positive cultures by tomorrow going to stop antibiotics. Current Visit: No (5) Traumatic brain injury Status: Chronic Current Visit: No Infectious Disease - PN: Subj Interval history: Patient was moved out of ICU yesterday. She is clinically stable no evidence of respiratory distress. She has not had any fever. She nods her head indicating that she has no problems at all, however nurse says she is having significant diarrhea. Infectious Disease Exam (PN) - Constitutional Vitals: Temp Pulse Resp BP Pulse Ox 97.1 F L 74 16 102/53 97 02/10/17 07:44 02/10/17 07:44 02/10/17 07:44 02/10/17 07:44 02/10/17 07:44 General appearance: no acute distress, other (Opens her eyes and follows but does not verbally communicate nor follows simple commands for me) Exam: General appearance: no acute distress - Eye Eye exam: Present: EOMI. no icterus Pupils: Present: BRADLEY - ENT ENT exam: no oral exudates - Neck Neck exam: No secretions from tracheostomy thy - Respiratory Respiratory exam: vesicular BS, no crepitations or wheezes - Cardiovascular Cardiovascular exam: regular rate and rhythm, no murmurs - GI/Abdominal GI/Abdominal exam: normal bowel sounds, soft, non-tender, no organomegaly or mass - Extremities Exam Extremities exam: no edema - Skin Skin exam: no rash Results - Labs CBC & BMP: 02/09/17 05:06 02/09/17 05:06 Lab Results: I have reviewed the past 24 hour labs (1 stool negative for C. difficile)
[2017-02-10] MEDS: LACTOBACILLUS ACIDOPHILUS/BULGARICUS CHEW TABLET PO SCH ×4 (10:33→20:31)
[2017-02-10] MEDS ORDERED: MAGNESIUM SULF RIDER 2 GM in PREMIX 1 EACH IV ONE (11:02)
[2017-02-10] MEDS ORDERED: DIPHENOXYLATE/ATROPINE 2.5-0.025 MG TABLET PO PRN (11:06)
--- NOTE | 2017-02-10 11:06 | Hospitalist Progress Note ---
Assessment and Plan (1) Sepsis Status: Acute Assessment and plan: more dehydration than infection cont meropenem and tobramycin if no growth on cx d/c abx tomorrow Current Visit: No (2) Aspiration pneumonia Status: Acute Assessment and plan: meropenem and tobramycin cont. Dr. Cerda does not think she has pneumonia Current Visit: No Qualifiers: Aspiration pneumonia type: due to gastric secretions (3) Functional quadriplegia Status: Chronic Current Visit: No (4) Traumatic brain injury Status: Chronic Assessment and plan: Spoked with Lu[facility] patient sister and Dr. Edwards wants her transferred to [facility]. Current Visit: No (5) Encephalopathy Status: Acute Assessment and plan: improving with treatment of hypernatremia Current Visit: Yes (6) Dehydration Status: Acute Assessment and plan: cont D5w at 100 ml/hr, started free water through peg at 50 ml/hr Current Visit: Yes (7) Hypernatremia Status: Acute Assessment and plan: cont free water thru peg and IVF and recheck sodium in am Current Visit: Yes Hospitalist: Subjective Interval history: Patient more alert and awake today. I reviewed Dr. Cerda's notes will stop abx of cultures no growth. Sister has have been meeting with the shelter today because patient has had reoccurring admissions for poor care. I feel that patient needs a feeding pump so she can constantly receive infusions of free water. Exam - Constitutional Vitals: Period Temp Pulse Resp BP Sys/Vargas Pulse Ox Last 24 Hr 96.4 F-98.6 F 74-104 14-22 96-111/52-76 92-98 Exam: Heart Rate-[RRR] Lungs-[CTAB] GI-[+bs soft, NT] Ext-[no edema] Neuro alert and oriented times one today, said high psych [depressed mood and flat affect] General [no acute distress] Results - Labs CBC & BMP: 02/09/17 05:06 02/09/17 05:06 Lab Results: I have reviewed the past 24 hour labs Labs: Urine positive for Cecille, blood cultures 2 negative no growth, stool negative for C. difficile
[2017-02-10] MEDS: ENOXAPARIN 40 MG/0.4 ML SYRINGE SUBCUT SCH (16:42)
[2017-02-10] MEDS: CITALOPRAM 20 MG TABLET PEG SCH (20:31)
[2017-02-11] MEDS: ALBUTEROL 0.63 MG/3 ML NEB RESP TX SCH ×6 (00:58→20:36)
[2017-02-11] MEDS: MEROPENEM 2,000 MG in SODIUM CHLORIDE 0.9% 100 ML IV SCH ×2 (01:04→09:14)
[2017-02-11 02:33] LABS: Calcium 8.4 MG/DL (8.5-10.1); Osmolality,Calculated 298.9 MOS/KG (273-304); Potassium 3.1 MMOL/L (3.5-5.1)
[2017-02-11] MEDS: METOCLOPRAMIDE 10 MG/10 ML UDCUP PEG SCH ×4 (07:37→23:22)
[2017-02-11] MEDS: DEXTROSE 5% 1,000 ML IV SCH ×3 (07:37→21:10)
[2017-02-11] MEDS ORDERED: FUROSEMIDE 40 MG/4 ML VIAL IV ONE (08:30)
[2017-02-11] MEDS: levETIRAcetam LIQUID 100 MG/ML 30 ML/BOTTLE PO SCH ×2 (08:39→22:34)
[2017-02-11] MEDS: MENTHOL/ZINC OXIDE OINT 71 GM JAR TOP SCH ×2 (08:39→22:36)
[2017-02-11] MEDS: NYSTATIN POWDER 15 GM BOTTLE TOP SCH ×3 (08:39→22:36)
[2017-02-11] MEDS: DOCUSATE SODIUM 100 MG/10 ML UDCUP PEG SCH (08:40)
[2017-02-11] MEDS: LACTOBACILLUS ACIDOPHILUS/BULGARICUS CHEW TABLET PO SCH ×4 (08:40→22:35)
[2017-02-11] MEDS: LANSOPRAZOLE ODT 30 MG TABLET PO SCH (08:43)
[2017-02-11] MEDS ORDERED: FUROSEMIDE 40 MG/4 ML VIAL ONE (09:50)
--- NOTE | 2017-02-11 11:07 | Infectious Disease Progress ---
Assessment and Plan (1) Hypernatremia Status: Acute Assessment and plan: Probably from reduced volume intake. Improving since admission. Current Visit: Yes (2) Altered mental state Status: Acute Assessment and plan: Probably related to hyponatremia. It has improved back to her baseline. Current Visit: No Qualifiers: Altered mental status type: somnolence Qualified Code(s): R40.0 - Somnolence (3) History of recurrent UTI (urinary tract infection) Status: Acute Assessment and plan: Only used cultured indicative of colonization. No treatment indicated. Current Visit: No (4) Right lower lobe pneumonia Status: Acute Assessment and plan: We treated this pneumonia aggressively during her last admission. Her x-ray is actually normal and this admission although on day 2 some opacity developed in the right lung base. The patient's lungs have been clear and I do not think she has pneumonia clinically. She may have aspirated but her airways have now been cleared. Recommendations: Stop antibiotics and I think patient is okay to go back to her [facility] I will sign off. Call again as needed. Current Visit: No (5) Traumatic brain injury Status: Chronic Current Visit: No Infectious Disease - PN: Subj Interval history: Patient comfortable, she has not had any respiratory difficulties since her first day of admission. She denies cough shortness or pleuritic chest pain. She does not have significant secretions from the tracheostomy. She has been afebrile. She indicates that she has no problems at all and is ready to go back to her [facility]. Infectious Disease Exam (PN) - Constitutional Vitals: Temp Pulse Resp BP Pulse Ox 97.0 F L 76 19 93/62 93 L 02/11/17 04:00 02/11/17 07:27 02/11/17 07:27 02/11/17 04:00 02/11/17 07:27 General appearance: no acute distress, other (Opens her eyes and follows but does not verbally communicate nor follows simple commands for me) Exam: General appearance: no acute distress - Eye Eye exam: Present: EOMI. no icterus Pupils: Present: BRADLEY - ENT ENT exam: no oral exudates - Neck Neck exam: No secretions from tracheostomy - Respiratory Respiratory exam: vesicular BS, no crepitations or wheezes - Cardiovascular Cardiovascular exam: regular rate and rhythm, no murmurs - GI/Abdominal GI/Abdominal exam: normal bowel sounds, soft, non-tender, no organomegaly or mass - Extremities Exam Extremities exam: no edema - Skin Skin exam: no rash Results - Labs CBC & BMP: 02/09/17 05:06 02/11/17 01:50 Lab Results: I have reviewed the past 24 hour labs (Stool 3 negative for C. difficile)
--- NOTE | 2017-02-11 13:59 | Hospitalist Progress Note ---
Assessment and Plan - Time spent with patient Time spent with patient: Greater than 30 minutes (1) Hypernatremia Status: Acute Assessment and plan: Continue D5W. Current Visit: Yes (2) Aspiration pneumonia Status: Acute Assessment and plan: Defer to ID. Ab have been stopped. Current Visit: No Qualifiers: Aspiration pneumonia type: due to gastric secretions (3) Functional quadriplegia Status: Chronic Current Visit: No (4) Traumatic brain injury Status: Chronic Current Visit: No Hospitalist: Subjective Interval history: Transferred up from the ICU where she had a brief stay for treatment of potential sepsis and aspiration pneumonia. No fever or overnight event.s Exam - Constitutional Vitals: Period Temp Pulse Resp BP Sys/Vargas Pulse Ox Last 24 Hr 96.7 F-97.5 F 73-88 18-24 81-102/48-62 93-100 General appearance: no acute distress - Head Head exam: Present: normocephalic, atraumatic - Eye Eye exam: Present: EOMI Pupils: Present: BRADLEY - ENT ENT exam: Present: normal exam - Neck Neck exam: Present: other (ET tube) - Respiratory Respiratory exam: Present: clear to auscultation bilaterally. Absent: rhonchi, wheezes - Cardiovascular Cardiovascular exam: Present: regular rate and rhythm. Absent: gallop, rubs, systolic murmur - GI/Abdominal GI/Abdominal exam: Present: normal bowel sounds, soft. Absent: distended, firm , guarding, tenderness, rebound - Extremities Exam Extremities exam: Present: normal inspection. Absent: calf tenderness, edema Results - Labs CBC & BMP: 02/09/17 05:06 02/11/17 01:50 Lab Results: I have reviewed the past 24 hour labs
[2017-02-11] MEDS ORDERED: TOBRAMYCIN INJ 120 MG in SODIUM CHLORIDE 0.9% 100 ML IV SCH (14:00)
[2017-02-11] MEDS: CITALOPRAM 20 MG TABLET PEG SCH (22:35)
[2017-02-12] MEDS: ALBUTEROL 0.63 MG/3 ML NEB RESP TX SCH ×4 (00:27→11:29)
[2017-02-12 06:35] LABS: Calcium 8.5 MG/DL (8.5-10.1); Magnesium 2.3 MG/DL (1.8-2.4); Osmolality,Calculated 296.1 MOS/KG (273-304); Phosphorous 2.7 MG/DL (2.5-4.9); Potassium 3.1 MMOL/L (3.5-5.1)
[2017-02-12] MEDS: METOCLOPRAMIDE 10 MG/10 ML UDCUP PEG SCH ×2 (07:27→10:51)
[2017-02-12] MEDS: DEXTROSE 5% 1,000 ML IV SCH (07:30)
[2017-02-12] MEDS: DOCUSATE SODIUM 100 MG/10 ML UDCUP PEG SCH (09:00)
[2017-02-12] MEDS ORDERED: POTASSIUM CHLORIDE RIDER 10 MEQ in PREMIX 1 EACH IV ONE (09:04)
[2017-02-12] MEDS ORDERED: POTASSIUM CHLORIDE 20 MEQ/15 ML UDCUP PER TUBE PRN (09:04)
[2017-02-12] MEDS: NYSTATIN POWDER 15 GM BOTTLE TOP SCH (10:51)
[2017-02-12] MEDS: LANSOPRAZOLE ODT 30 MG TABLET PO SCH (10:51)
[2017-02-12] MEDS: LACTOBACILLUS ACIDOPHILUS/BULGARICUS CHEW TABLET PO SCH (10:51)
[2017-02-12] MEDS: levETIRAcetam LIQUID 100 MG/ML 30 ML/BOTTLE PO SCH (10:51)
[2017-02-12] MEDS: MENTHOL/ZINC OXIDE OINT 71 GM JAR TOP SCH (10:53)
--- NOTE | 2017-02-12 12:23 | Discharge Summary ---
Hospital Course - Hospital Course Hospital Course: Ms Rossi presented with encephalopathy. She was found to have hypernatremia and possible aspiration pneumonia. Her urinalysis was suggestive of urinary tract infection. She was initiated on IV antibiotics for potential pulmonary and urinary infection and IV dextrose for correction of her hypernatremia. Encephalopathy resolved, and this was felt to be secondary to sodium levels however infectious disease was consulted for further recommendations. Her urine was negative to growth and patient had no signs or indication of pneumonia and infectious disease discontinued the antibiotics. Patient did very well on this regimen and may benefit with adjustment of her feeding to bolus from continuous. Furthermore given her hypernatremia I encourage the residential to administer at least 500cc of free water per day, preferably through a feeding pump. She may require more free water, and I feel the patient would benefit from a renal panel in the next several days to evaluate her sodium and potassium levels for correction. Of note she had some mild green drainage from around the PEG tube however no indication of infection or leakage of stomach contents. By discharge she had met maximum benefit of hospitalization. I spent 34 minutes coordinating this discharge. - Time spent with patient Time with patient DS: Greater than 30 minutes Diagnosis - Discharge Diagnosis (1) Hypernatremia Status: Acute (2) Aspiration pneumonia Status: Acute (3) Functional quadriplegia Status: Chronic (4) Traumatic brain injury Status: Chronic Discharge Plan - Discharge Data Disposition: Disch/Xfer to Snf Condition at Discharge: Stable Discharge Diet: advance to your usual diet Activity: resume usual activities as tolerated - Discharge Medications Continue Docusate Sodium Liquid [Colace Liquid] 100 mg PEG DAILY Lactobacillus Acidophilus [Acidophilus] 2 each PEG QID Lactulose Liquid [Chronulac] 20 gm PO Q4H PRN #0 udcup PRN Reason: Constipation Nystatin Powder [Mycostatin Powder] 1 applic TOP TID powder Albuterol Neb [Proventil Neb] 3 ml INH Q4HR Bisacodyl Supp [Dulcolax Supp] 10 mg RECTAL DAILY PRN PRN Reason: Constipation Ondansetron Tab [Zofran Tab] 4 mg PEG Q4H PRN PRN Reason: Nausea Citalopram Hydrobromide [Citalopram HBr] 15 mg PEG BEDTIME Menthol/Zinc Oxide Oint [Calmoseptine Oint] 1 applic TOP BID levETIRAcetam LIQUID [Keppra Liquid] 1,000 mg PO BID ml HYDROcodone/ACETAMIN 5-325 [[place] 5-325] 1 tablet PEG Q6H PRN PRN Reason: Pain Metoclopramide Liquid [Reglan Liquid] 10 mg PEG Q6H Potassium Chloride Liquid 40 meq PEG DAILY Acetaminophen Tab [Tylenol Tab] 650 mg PEG Q4H PRN PRN Reason: fever, headache/body aches Acetaminophen Supp [Tylenol Supp] 650 mg RECTAL Q4H PRN PRN Reason: Fever - Follow Up or Referral - Forms/Instructions Exam - Constitutional Vitals: Period Temp Pulse Resp BP Sys/Vargas Pulse Ox Last 24 Hr 96.7 F-97.5 F 73-104 16-20 82-109/58-68 94-99 General appearance: normal weight, no acute distress - Head Head exam: Present: normal inspection - Eye Eye exam: Present: EOMI Pupils: Present: BRADLEY - ENT ENT exam: Present: other (tracheostomy) - Neck Neck exam: Present: normal inspection - Respiratory Respiratory exam: Present: clear to auscultation bilaterally. Absent: accessory muscle use, prolonged expiratory phase, wheezes - Cardiovascular Cardiovascular exam: Present: regular rate and rhythm - GI/Abdominal GI/Abdominal exam: Present: normal bowel sounds, other (peg tube in place, minimal green drainage from around peg tube). Absent: ascites, hypoactive bowel sounds - Extremities Exam Extremities exam: Present: normal inspection Discharge Results Procedures and tests throughout hospitalization: Pending Orders 02/08/17 16:01 Blood Culture Stat 02/13/17 04:00 BMP [Basic Metabolic Panel] IN AM 02/16/17 04:00 Basic Metabolic Panel MOTH Magnesium MOTH Phosphorous MOTH Prealbumin MOTH Labs on day of discharge: Labs from last 24 hours 02/12/17 04:00 Sodium 149 H Potassium 3.1 L Chloride 110 H Carbon Dioxide 28 Anion Gap 14.1 BUN 16 Creatinine 0.60 GFR Calculation 93 BUN/Creatinine Ratio 26.00 H Glucose 92 Calculated Osmolality 296.1 Calcium 8.5 Phosphorus 2.7 Magnesium 2.3 Prealbumin 19.0 L Preliminary micro results at discharge 02/08/17 16:01 Blood Culture - Preliminary Blood No growth at 3 days 02/08/17 16:01 Blood Culture - Preliminary Blood No growth at 3 days DS: Provider Date of admission: 02/08/17 16:19 Primary care physician: . No PCP Attending physician on admission: Guerda Chun Consults: 02/08/17 19:22 Consult to Dietitian [CONS] Routine Reason for Dietitian: Dietary Consult 02/09/17 10:46 Consult to Physician [CONS] Routine Comment: abx recommendation Consulting Provider: Bonny Elizabeth Person Notified: aware and has seen patient Date Notified: 02/09/17 Time Notified: 09:45 02/09/17 11:58 Consult to Dietitian [CONS] Routine Reason for Dietitian: TF-Initiate/Manage 02/09/17 12:36 Consult to Pharmacy [CONS] Routine Reason for Pharmacy Consult: Dose/Manage Tobramycin 02/10/17 10:49 Consult to Case Mgmt/Social Srvs [CONS] Routine Reason for Case Mgmt/Social Srvs: Other Consult Comment: need to use feeding pump at residential to avoid dehydration Discharging clinician: Park Guaman MD Expected date of discharge: 02/12/17
[2017-02-12 20:07] VITALS: BP 104/64
== END 2017-02-12 12:55 | DRG 720 ==
LOC: EDUNIT# → EDBD → N.ED 14:41 → N.EDINP 16:19 → SUATTDRO 16:19 → N.CC 16:36 → N.TELEN 02-09 13:45 → N.2E 02-10 18:33
PROVIDERS: ADMIT Hospitalist; ATTEND Internal Medicine

== ENCOUNTER 2017-02-26 23:14 | Inpatient (IN) ==
[2017-02-26] MEDS ORDERED: SODIUM CHLORIDE 0.9% 2,200 ML IV ONE (23:45)
[2017-02-26] MEDS ORDERED: ALBUTEROL/IPRATROPIUM 3 ML NEB RESP TX STA (23:51)
[2017-02-26] MEDS ORDERED: FLUCONAZOLE INJ 200 MG in PREMIX 1 EACH IV ONE (23:51)
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
[2017-02-27] MEDS ORDERED: PIPERACILLIN/TAZOBACTAM 3,375 MG in SODIUM CHLORIDE 0.9% 100 ML IV SCH
[2017-02-27] MEDS ORDERED: ACETAMINOPHEN 650 MG SUPP RECTAL STA (00:14)
[2017-02-27] MEDS ORDERED: ACETAMINOPHEN 650 MG SUPP RECTAL ONE (00:15)
[2017-02-27 00:18] LABS: Basophils % 0.2 % (0.0-0.8); Eosinophils % 0.1 % (0.00-10.9); Hematocrit 40.3 VOL% (35.7-47.0); Immature Granulocytes % 0.6 %; Immature Granulocytes Absolute 0.11 #; Lymphocytes # 2.3 10*3/uL (1.4-4.0); Lymphocytes % 12.7 % (21.3-54.2); Mean Corpuscular HGB Conc 32.3 GM/DL (32-36); Mean Corpuscular Hemoglobin 30 PG (27-34); Mean Corpuscular Volume 94.2 FL (87-102); Mean Platelet Volume 10.1 FL (9.6-12.0); Monocytes # 1.4 10*3/uL (0.11-0.8); Monocytes % 7.5 % (1.7-12.7); Neutrophils # 14.3 10*3/uL (1.4-7.4); Neutrophils % 78.9 % (38.7-73.9); Platelet Count 308 T/CUMM (130-400); Red Blood Count 4.28 MC/CUMM (3.8-5.5); Red Cell Distribution Width 15.4 % (9.3-17.3); White Blood Count 18.1 T/CUMM (4-12)
[2017-02-27 00:36] LABS: Alanine Aminotransferase 38 U/L (13-56); Albumin 2.9 G/DL (3.4-5.0); Alkaline Phosphatase 135 U/L (45-117); Aspartate Amino Transferase 25 U/L (0-37); Blood Urea Nitrogen 48 MG/DL (7-18); Glucose 129 MG/DL (74-106); Osmolality,Calculated 306.4 MOS/KG (273-304); Potassium 5.6 MMOL/L (3.5-5.1); Sodium 147 MMOL/L (136-145)
[2017-02-27 00:43] LABS: INR 1.1; PT Patient Result 11.3 SECS
[2017-02-27 00:51] LABS: Lactic Acid 1.4 MMOL/L (0.4-2.0)
[2017-02-27 01:07] LABS: Partial Thromboplastin Time < 21.0 SECS (0-40)
[2017-02-27] MEDS ORDERED: PIPERACILLIN/TAZOBACTAM 3,375 MG VIAL IV ONE (01:08)
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
[2017-02-27 01:51] LABS: ABG Base Excess -8.4 MMOL/L (-2.5-2.5); ABG HCO3 17.9 MMOL/L (20-26); ABG Oxygen Saturation 98.7 % (95-100); ABG PCO2 31.8 MM HG (35-48); ABG PH 7.326 (7.35-7.45); ABG TCO2 14.2 MMOL/L (23-27); Pt O2 Delivery Device Other
[2017-02-27] MEDS ORDERED: ALBUTEROL 2.5 MG/3 ML NEB RESP TX PRN (01:51)
[2017-02-27] MEDS ORDERED: ONDANSETRON 4 MG/2 ML VIAL IV PRN (01:51)
[2017-02-27 02:12] LABS: Apearance,Urine CLOUDY (Clear); Bacteria,Urine Occasional /HPF (Few); Bilirubin,Urine Negative (Negative); Blood, Urine Negative (Negative); Glucose,Urine (UA) Negative (Negative); Ketones,Urine Negative (Negative); Mucus,Urine Occasional /LPF (Occasional); Nitrite,Urine Negative (Negative); Protein,Urine Negative; RBC,Urine 63 /HPF (0-4); Urine Color Yellow (Yellow); Urine Specific Gravity 1.014 (1.001-1.035); Urine Urobilinogen < 2.0 EU/DL (0.2-1.0); WBC,Urine 51 /HPF (0-6)
[2017-02-27] MEDS: SODIUM CHLORIDE 0.9% 1,000 ML IV SCH ×5 (02:38→20:56)
[2017-02-27 05:15] LABS: Hypochromasia Slight; Platelet Estimate Adequate
[2017-02-27 05:16] LABS: Microcytosis Slight
--- NOTE | 2017-02-27 06:49 | EKG Report ---
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
--- NOTE | 2017-02-27 07:45 | XRay Report ---
XR chest 1V portable Indication: Fever Comparison: Chest x-ray dated February 09, 2017 Technique: Single frontal view of the chest. Findings: Tracheostomy tube again demonstrated. The cardiomediastinal silhouette is stable in configuration. Some improvement in right lower lung consolidation with mild to moderate atelectasis/consolidation remaining. Visualized osseous and surrounding soft tissue structures appear grossly unchanged. Diffuse osteopenia. IMPRESSION: As above. PROCEDURE INTERPRETED AT [facility] DEPARTMENT OF RADIOLOGY Final Report Signed by: Dr Ulices Mariano
[2017-02-27] MEDS ORDERED: ENOXAPARIN 40 MG/0.4 ML SYRINGE SUBCUT SCH (09:00)
[2017-02-27] MEDS: PANTOPRAZOLE 40 MG TABLET PO SCH (09:11)
[2017-02-27] MEDS: PIPERACILLIN/TAZOBACTAM 3,375 MG in SODIUM CHLORIDE 0.9% 100 ML IV SCH ×2 (09:20→17:02)
--- NOTE | 2017-02-27 10:44 | Hospitalist Progress Note ---
Hospitalist: Subjective Interval history: Denies pain. SOB chronic. + cough. Exam - Constitutional Vitals: Period Temp Pulse Resp BP Sys/Vargas Pulse Ox Last 24 Hr 97.0 F-102.5 F 80-138 12-26 90-119/52-98 91-100 Exam: Awake, alert, following simple commands; Incomplete quadriplegia Trach in place. No JVD RRR no M Intermittent coarse lung sounds, nonlabored Soft, NT, ND, +PEG Warm no c/c/e +Atrophy Results - Labs CBC & BMP: 02/26/17 23:55 02/26/17 23:55 - Impressions Assessment and Plan (1) Sepsis due to suspected acute cystitis with hypotension (due to sepsis and hypovolemia +/-neurological from spinal cord injury) Status: Acute Current Visit: Yes - IV antibiotics - IVF - F/U blood and urine cultures (2) Suspected Acute urinary tract infection/ cystitis Status: Acute Current Visit: Yes - IV antibiotics. F/U cultures (3) Acute kidney injury due to dehydration Status: Acute Current Visit: Yes - IVF (4) Acute metabolic/ toxic encephalopathy due to dehydration and infection Status: Acute Current Visit: Yes - treat above and avoid meds to exacerbate this (5) Expressive aphasia Status: Acute Current Visit: Yes (6) Hyperkalemia Status: Acute Current Visit: Yes - hydrating. F/U potassium level (7) Metabolic acidosis Status: Acute Current Visit: Yes - Lactic acid normal. Hopefully with correct with IVF (8) Tracheostomy dependent Status: Acute Current Visit: Yes - routine trach care (9) Yeast infection Status: Acute Current Visit: Yes - Cont current treatment (10) History of pneumonia Status: Chronic Assessment and plan: (11) Sacral ulcer POA - wound care to see Awaiting home meds to be confirmed. D/W nurse and pt.
[2017-02-27] MEDS: ENOXAPARIN 30 MG/0.3 ML SYRINGE SUBCUT SCH (11:51)
[2017-02-27 12:16] LABS: Bilirubin,Total < 0.39 MG/DL (0.2-1.0)
[2017-02-27] MEDS: FLUCONAZOLE INJ 100 MG in IV BAG 1 EACH IV SCH (21:07)
[2017-02-28] MEDS ORDERED: SODIUM CHLORIDE 0.9% 500 ML IV ONE (01:40)
[2017-02-28] MEDS: PIPERACILLIN/TAZOBACTAM 3,375 MG in SODIUM CHLORIDE 0.9% 100 ML IV SCH ×4 (02:26→23:59)
[2017-02-28] MEDS: SODIUM CHLORIDE 0.9% 1,000 ML IV SCH (02:26)
[2017-02-28 03:31] LABS: Calcium 7.3 MG/DL (8.5-10.1); Osmolality,Calculated 304.7 MOS/KG (273-304); Potassium 3.2 MMOL/L (3.5-5.1)
[2017-02-28] MEDS: NOREPINEPHRINE 8 MG in SODIUM CHLORIDE 0.9% 242 ML IV SCH (07:20)
--- NOTE | 2017-02-28 07:51 | Hospitalist Progress Note ---
Hospitalist: Subjective Interval history: Pt BP decreased during the night and pt was started on levophed and HR dropped into the 50's. Levophed was stopped and HR is now in 70's. Pt denies any pain. She states SOB and denies chest pain. No nausea or vomiting. Tolerating tubefeeds Exam - Constitutional Vitals: Period Temp Pulse Resp BP Sys/Vargas Pulse Ox Last 24 Hr 96.9 F-98.4 F 66-83 13-20 77-139/48-62 96-100 Exam: Awake, alert, following simple commands; dry lips. Incomplete quadriplegia Trach in place. No JVD RRR no M Intermittent coarse lung sounds, nonlabored Soft, NT, ND, +PEG Warm no c/c/e +Atrophy Results - Labs CBC & BMP: 02/26/17 23:55 02/28/17 02:51 - Impressions (1) Sepsis due to suspected acute cystitis with hypotension (due to sepsis and hypovolemia +/-neurological from spinal cord injury) Status: Acute Current Visit: Yes - IV antibiotics - IVF - F/U blood and urine cultures - I think this may be patient's baseline for BP. Unless symptomatic will not be aggressive with this. ok for MAP >/= 60 (2) Suspected Acute urinary tract infection/ cystitis due to GPC and GNR Status: Acute Current Visit: Yes - IV antibiotics. F/U cultures (3) Acute kidney injury due to dehydration- resolved Status: Acute Current Visit: Yes -Adjust IVF (4) Acute metabolic/ toxic encephalopathy due to dehydration and infection Status: Acute Current Visit: Yes - treat above and avoid meds to exacerbate this (5) Expressive aphasia Status: Acute Current Visit: Yes (6) Hyperkalemia- resolved Status: Acute Current Visit: Yes - corrected with IVF (7) Metabolic acidosis Status: Acute Current Visit: Yes - Lactic acid normal. start on Bicarb drip (8) Tracheostomy dependent Status: Acute Current Visit: Yes - routine trach care (9) Yeast infection Status: Acute Current Visit: Yes - Cont current treatment (10) History of pneumonia Status: Chronic Assessment and plan: (11) Chronic sacral ulcer POA - wound care to see (12) History of seizures - resume Keppra. Awaiting home meds to be confirmed. D/W nurse and pt.
[2017-02-28] MEDS ORDERED: DEXTROSE 5% KCL 20 MEQ 20 MEQ/1,000 ML BAG IV SCH (08:00)
[2017-02-28] MEDS: PANTOPRAZOLE 40 MG TABLET PO SCH (09:42)
[2017-02-28] MEDS: METOCLOPRAMIDE 10 MG/10 ML UDCUP PO SCH ×3 (12:51→23:53)
[2017-02-28] MEDS: ENOXAPARIN 30 MG/0.3 ML SYRINGE SUBCUT SCH (12:51)
[2017-02-28] MEDS: levETIRAcetam LIQUID 100 MG/ML 30 ML/BOTTLE PO SCH ×2 (12:51→22:08)
[2017-02-28] MEDS: NACL 0.22% IV SCH ×2 (12:53→22:10)
[2017-02-28] MEDS: SODIUM ACETATE IV SCH ×2 (12:53→22:10)
[2017-02-28] MEDS: DEXTROSE 5% IV SCH ×2 (12:53→22:10)
[2017-02-28] MEDS ORDERED: ENOXAPARIN 40 MG/0.4 ML SYRINGE SUBCUT SCH (13:30)
[2017-02-28] MEDS: FLUCONAZOLE INJ 100 MG in IV BAG 1 EACH IV SCH (22:09)
[2017-03-01] MEDS: DEXTROSE 5% IV SCH ×2 (00:58→12:48)
[2017-03-01] MEDS: NACL 0.22% IV SCH ×2 (00:58→12:48)
[2017-03-01] MEDS: SODIUM ACETATE IV SCH ×2 (00:58→12:48)
[2017-03-01] MEDS: METOCLOPRAMIDE 10 MG/10 ML UDCUP PO SCH ×2 (05:17→11:14)
[2017-03-01 05:45] LABS: Basophils % 0.2 % (0.0-0.8); Eosinophils # 0.2 10*3/uL (0.0-0.87); Eosinophils % 3.3 % (0.00-10.9); Hematocrit 25.9 VOL% (35.7-47.0); Hemoglobin 8.3 GM/DL (12.0-16.0); Immature Granulocytes % 0.5 %; Immature Granulocytes Absolute 0.03 #; Lymphocytes # 1.2 10*3/uL (1.4-4.0); Lymphocytes % 20.7 % (21.3-54.2); Mean Corpuscular Hemoglobin 31 PG (27-34); Mean Corpuscular Volume 95.6 FL (87-102); Mean Platelet Volume 9.8 FL (9.6-12.0); Monocytes # 0.4 10*3/uL (0.11-0.8); Monocytes % 6.5 % (1.7-12.7); Neutrophils # 3.9 10*3/uL (1.4-7.4); Neutrophils % 68.8 % (38.7-73.9); Platelet Count 153 T/CUMM (130-400); Red Blood Count 2.71 MC/CUMM (3.8-5.5); Red Cell Distribution Width 15.4 % (9.3-17.3); White Blood Count 5.7 T/CUMM (4-12)
[2017-03-01 06:07] LABS: Calcium 7.6 MG/DL (8.5-10.1); Phosphorous 1.7 MG/DL (2.5-4.9); Potassium 3.2 MMOL/L (3.5-5.1)
--- NOTE | 2017-03-01 07:59 | Hospitalist Progress Note ---
Hospitalist: Subjective Interval history: BP was checked on leg with higher readings. on Arm was in 90's systolically. Denies lightheadness or dizziness. No cp, SOB. Has started with diarrhea and FMS placed. C diff was negative. No abd pain per pt. Exam - Constitutional Vitals: Period Temp Pulse Resp BP Sys/Vargas Pulse Ox Last 24 Hr 96.9 F-98.7 F 59-75 14-22 75-131/47-68 95-100 Exam: Awake, alert, following simple commands; Incomplete quadriplegia Trach in place. No JVD RRR no M CTAB anteriorly, diminished at the bases, nonlabored Soft, NT, ND, +PEG Warm no c/c/e +Atrophy Results - Labs CBC & BMP: 03/01/17 05:30 03/01/17 05:30 - Impressions (1) Sepsis due to suspected acute cystitis due to yeast and ESBL Klebsiella with hypotension (due to sepsis and hypovolemia +/-neurological from spinal cord injury)- improved Status: Acute Current Visit: Yes - Cont IV antibiotics - Can stop IVF - F/U blood and urine cultures (2) Suspected Acute urinary tract infection/ cystitis due to Yeast and ESBL Klebsiella Status: Acute Current Visit: Yes - IV antibiotics. F/U cultures (3) Acute kidney injury due to dehydration- resolved Status: Acute Current Visit: Yes -Adjust IVF (4) Acute metabolic/ toxic encephalopathy due to dehydration and infection- resolved Status: Acute Current Visit: Yes - treat above and avoid meds to exacerbate this (5) Expressive aphasia Status: Acute Current Visit: Yes (6) Hyperkalemia- resolved Status: Acute Current Visit: Yes - corrected with IVF (7) Metabolic acidosis- resolved Status: Acute Current Visit: Yes - Lactic acid normal. Resolved after doing Bicarb drip (8) Tracheostomy dependent Status: Acute Current Visit: Yes - routine trach care (9) Yeast infection Status: Acute Current Visit: Yes - Cont current treatment (10) History of pneumonia Status: Chronic Assessment and plan: (11) Chronic sacral ulcer POA - wound care to see (12) History of seizures - Cont Keppra with seizure precautions D/W nurse and pt. Will transfer to floor.
[2017-03-01] MEDS ORDERED: POTASSIUM PHOSPHATE 30 MMOL in SODIUM CHLORIDE 0.9% 250 ML IV ONE (09:00)
[2017-03-01] MEDS: NOREPINEPHRINE 8 MG in SODIUM CHLORIDE 0.9% 242 ML IV SCH (09:03)
[2017-03-01] MEDS: PIPERACILLIN/TAZOBACTAM 3,375 MG in SODIUM CHLORIDE 0.9% 100 ML IV SCH ×2 (09:04→18:20)
[2017-03-01] MEDS: PANTOPRAZOLE 40 MG TABLET PO SCH (09:04)
[2017-03-01] MEDS: levETIRAcetam LIQUID 100 MG/ML 30 ML/BOTTLE PO SCH ×2 (09:04→21:26)
[2017-03-01] MEDS ORDERED: ENOXAPARIN 40 MG/0.4 ML SYRINGE SUBCUT SCH (13:00)
[2017-03-01] MEDS: FLUCONAZOLE INJ 100 MG in IV BAG 1 EACH IV SCH (21:25)
[2017-03-02] MEDS: PIPERACILLIN/TAZOBACTAM 3,375 MG in SODIUM CHLORIDE 0.9% 100 ML IV SCH ×3 (01:29→17:12)
[2017-03-02 06:49] LABS: Calcium 7.8 MG/DL (8.5-10.1); Magnesium 1.9 MG/DL (1.8-2.4); Phosphorous 2.3 MG/DL (2.5-4.9); Potassium 3.3 MMOL/L (3.5-5.1); Prealbumin 18.9 MG/DL (20-40)
[2017-03-02] MEDS: levETIRAcetam LIQUID 100 MG/ML 30 ML/BOTTLE PO SCH ×2 (09:32→21:53)
[2017-03-02] MEDS: PANTOPRAZOLE 40 MG TABLET PO SCH (09:32)
--- NOTE | 2017-03-02 09:57 | Hospitalist Progress Note ---
<Jackie Tellez - Last Filed: 03/02/17 09:53> Assessment and Plan (1) Acute kidney injury Status: Acute Assessment and plan: BUN and creatinine noted at 8 and 0.4; noted improvement since admission at 48 and 1.20. Remains stable we will continue to monitor Current Visit: Yes (2) Fever Status: Acute Current Visit: Yes (3) Leukocytosis Status: Acute Assessment and plan: WBCs have improved to 5.7. Will obtain urinalysis for review. We will de- escalate antibiotics. Current Visit: Yes (4) Hypernatremia Status: Acute Assessment and plan: Sodium remains elevated at 150. Yesterday sodium was noted at 150 and Thursday at 152. Start free water flushes at 150 mL every 4 hours, consult dietary, and recheck in a.m. Current Visit: No (5) Hypophosphatemia Status: Acute Assessment and plan: Phosphorus noted at 2.3 ;we will replace and recheck in a.m. Current Visit: Yes Hospitalist: Subjective Interval history: Patient seen and examined; no significant overnight events reported. Patient observed resting quietly in bed arouse per verbal stimuli with these. Exam - Constitutional Vitals: Period Temp Pulse Resp BP Sys/Vargas Pulse Ox Last 24 Hr 97.1 F-98.5 F 62-79 16-28 95-144/57-77 95-100 General appearance: normal weight, no acute distress - Head Head exam: Present: normal inspection - Eye Eye exam: Present: EOMI, conjunctival injection Pupils: Present: BRADLEY, normal accommodation - ENT ENT exam: Present: normal exam, normal external ear exam, normal oropharynx - Neck Neck exam: Present: normal inspection. Absent: lymphadenopathy, meningismus, thyromegaly - Respiratory Respiratory exam: Present: other (Diminished at the lower lung bases) - Cardiovascular Cardiovascular exam: Present: regular rate and rhythm. Absent: carotid bruit, diastolic murmur, gallop, JVD, rubs, systolic murmur - GI/Abdominal GI/Abdominal exam: Present: normal bowel sounds, soft (PEG tube intact) - Extremities Exam Extremities exam: Present: other (Contractures to upper extremity) - Back Exam Back exam: Present: normal inspection - Neurological Exam Neurological exam: Present: alert, other (Nonverbal) - Psychiatric Psychiatric exam: Present: normal affect - Skin Skin exam: Present: normal color, other (Decubitus ulceration noted to coccyx) Results - Labs CBC & BMP: 03/01/17 05:30 03/02/17 05:57 Lab Results: I have reviewed the past 24 hour labs <RioDa domingo - Last Filed: 03/02/17 17:05> Hospitalist: Subjective Interval history: Patient seen and examined. I have reviewed the progress note by LINETTE Tellez, and I agree with the documentation to include the assessment and plan. Active Issues: 1. Sepsis: resolving; likely 2nd to candidial and ESBL Klebsiella UTI: on zosyn and fluconazole 2. Fungal/ESBL Kleb UTI; bcx negative; repeat ucx 3. CRUZITO: resolved; monitor 4. HypoK/PO4: replete 5. Hypernatremia: start with free water flushes into PEG; may need dextrose solution 6. Worsening anemia: HCT decreased from 40 to 26 along with +guaiac stool: appreciate help by GI; noted plan for EGD; will change PPI to IV and BID; transfuse as needed 7. Malnutrition: on tube feeds; will consult nutrition 8. Acute toxic-metabolic encephalopathy 9. Chronic sacral ulcer 10. Expressive aphasis; trach dependent 11. h/o seizures: on keppra Exam - Constitutional Vitals: Period Temp Pulse Resp BP Sys/Vargas Pulse Ox Last 24 Hr 97.2 F-98.5 F 62-77 16-20 95-135/57-72 96-100 Results - Labs CBC & BMP: 03/01/17 05:30 03/02/17 05:57
[2017-03-02] MEDS ORDERED: POTASSIUM PHOSPHATE 30 MMOL in SODIUM CHLORIDE 0.9% 250 ML IV ONE (10:21)
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
[2017-03-02] MEDS: POTASSIUM CHLORIDE INJ 30 MEQ in DEXTROSE 5% NACL 0.45% 1,000 ML IV SCH (17:12)
[2017-03-02] MEDS: FLUCONAZOLE INJ 100 MG in IV BAG 1 EACH IV SCH (21:53)
[2017-03-03] MEDS: POTASSIUM CHLORIDE INJ 30 MEQ in DEXTROSE 5% NACL 0.45% 1,000 ML IV SCH ×2 (01:20→19:42)
[2017-03-03] MEDS: PIPERACILLIN/TAZOBACTAM 3,375 MG in SODIUM CHLORIDE 0.9% 100 ML IV SCH ×3 (02:51→18:40)
[2017-03-03 07:09] LABS: Basophils % 0.1 % (0.0-0.8); Eosinophils # 0.3 10*3/uL (0.0-0.87); Eosinophils % 3.8 % (0.00-10.9); Hematocrit 26.4 VOL% (35.7-47.0); Hemoglobin 8.3 GM/DL (12.0-16.0); Immature Granulocytes % 0.5 %; Immature Granulocytes Absolute 0.04 #; Lymphocytes # 1.8 10*3/uL (1.4-4.0); Mean Corpuscular HGB Conc 31.4 GM/DL (32-36); Mean Corpuscular Hemoglobin 30 PG (27-34); Mean Corpuscular Volume 95.3 FL (87-102); Mean Platelet Volume 9.9 FL (9.6-12.0); Monocytes # 0.5 10*3/uL (0.11-0.8); Monocytes % 6.1 % (1.7-12.7); Neutrophils # 4.8 10*3/uL (1.4-7.4); Neutrophils % 65.5 % (38.7-73.9); Platelet Count 164 T/CUMM (130-400); Red Blood Count 2.77 MC/CUMM (3.8-5.5); Red Cell Distribution Width 15.8 % (9.3-17.3); White Blood Count 7.4 T/CUMM (4-12)
[2017-03-03 07:41] LABS: Albumin 1.9 G/DL (3.4-5.0); Bilirubin,Total 0.4 MG/DL (0.2-1.0); Calcium 8.4 MG/DL (8.5-10.1); Osmolality,Calculated 286.6 MOS/KG (273-304); Phosphorous 2.6 MG/DL (2.5-4.9); Potassium 4.3 MMOL/L (3.5-5.1); Total Protein 5.7 G/DL (6.4-8.3)
--- NOTE | 2017-03-03 08:12 | Operative Note ---
Date of procedure: 03/03/17 Pre-op diagnosis: Atypical chest pain, reflux symptoms-- ? feeding into wheezing Post-op diagnosis: other (This patient has mild erythema distally in the esophagus, but no gross evidence of erosions or severe esophagitis, biopsies obtained to rule out eosinophilic esophagitis. 2 cm hiatal hernia, and moderate amount of retained food in the stomach indicative of some underlying gastroparesis. Mild gastritis and a gastric polyp seen as well.) Procedure: PROCEDURE: Esophagogastroduodenoscopy (EGD) with cold biopsy for pathology REFERRING PHYSICIAN: Mary Pate MD INDICATIONS: Reflux with atypical chest pain, question as to whether or not this is feeding into the patient's cardiac issues or possibly even wheezing due to aspiration of acid, better with Protonix twice daily the prior H&P was reviewed and interrim changes are as noted: No change from GI consultation on 02/26/17 (as an outpatient). ENDOSCOPIST: Owen Bejarano MD ENDOSCOPE: Olympus Video 100 System upper endoscope ASA CLASS: 3 EXAM: CV: regular rate and rhythm respiratory: Clear without wheezes abdominal: active bowel sounds MEDICATION: Per nursing anesthesia protocol, see their notes PROCEDURE: After discussion of the potential risks and benefits of upper endoscopy, the informed consent was obtained. The patient was then placed in the left lateral decubitus position where sedation was achieved as noted above. Esophageal intubation was performed without difficulty, and the endoscope was advanced through the esophagus, stomach and duodenum. A slow withdrawal was then performed with retroflexion in the stomach for careful inspection of the incisura angularis, fundus and cardia. The scope was then returned to a neutral position and withdrawn through the esophagus. The patient tolerated the procedure well and without complication. BIOPSIES: Gastric antrum/body PHOTOGRAPHS: Obtained FINDINGS: Hypopharynx and Larynx: Normal Esohagoscopy Upper and middle thirds: Normal Lower third mild erythema distally 2 cm but no gross evidence of erosive esophagitis, biopsies obtained Esophogastric junctions: No gross evidence of erosion, stricturing, or Carmona's Gastroscopy: Cardia/Fundus: 2 cm hiatal hernia, retained food in the stomach consistent with mild to moderate gastroparesis Body: Retained food in the stomach consistent with mild to moderate gastroparesis, single gastric polyp biopsied, J-shaped stomach Antrum and pylorus mild diffuse gastritis, biopsied Duodenoscopy: Bulb retained food but no evidence of duodenitis Second and third portions: Normal IMPRESSION: This patient has mild erythema distally in the esophagus, but no gross evidence of erosions or severe esophagitis, biopsies obtained to rule out eosinophilic esophagitis. 2 cm hiatal hernia, and moderate amount of retained food in the stomach indicative of some underlying gastroparesis. Mild gastritis and a gastric polyp seen as well. RECOMMENDATIONS: Follow up for biopsy results in 1-2 weeks by phone [phone] Continue anti-gastroesophageal reflux measures (avoid carbonated and acidic beverages, avoid eating within 2 hours of bedtime, avoid tight fitting clothing , and elevate the front bed posts 6 inches prior to sleeping. Gastric emptying study tomorrow Await biopsy results. Restart feeding today with cardiac diet. Owen Bejarano MD COPY TO: Mary Carmona MD Anesthesia: [facility] [place] Surgeon / Physician: Owen Bejarano Estimated blood loss: minimal Specimens: other (Distal esophagus, gastric antrum/body) Condition: stable Disposition: post procedure unit (G.I. Suite) Results - Labs CBC & BMP: 03/03/17 06:38 03/03/17 06:38 Discharge Plan - Discharge Medications No Action Docusate Sodium Liquid [Colace Liquid] 100 mg PEG DAILY Lactobacillus Acidophilus [Acidophilus] 2 each PEG QID Lactulose Liquid [Chronulac] 20 gm PO Q4H PRN #0 udcup PRN Reason: Constipation Nystatin Powder [Mycostatin Powder] 1 applic TOP TID powder Albuterol Neb [Proventil Neb] 3 ml INH Q4HR Bisacodyl Supp [Dulcolax Supp] 10 mg RECTAL DAILY PRN PRN Reason: Constipation Ondansetron Tab [Zofran Tab] 4 mg PEG Q4H PRN PRN Reason: Nausea Citalopram Hydrobromide [Citalopram HBr] 15 mg PEG BEDTIME Menthol/Zinc Oxide Oint [Calmoseptine Oint] 1 applic TOP BID levETIRAcetam LIQUID [Keppra Liquid] 1,000 mg PO BID ml Metoclopramide Liquid [Reglan Liquid] 10 mg PO Q6HR Citalopram [CeleXA] 20 mg PO DAILY Scopolamine 1.5 mg Patch [Transderm Scop 1.5 mg/72 hr Patch] 1 patch TRANSDERM Q3DAY Sulfameth/Trimeth 800-160 Tab [Bactrim DS Tab] 1 tablet PO BID Potassium Iodide Oral Soln [Sski] 300 mg PO TID HYDROcodone/ACETAMIN 5-325 [[place] 5-325] 1 tablet PEG Q6H PRN PRN Reason: Pain Metoclopramide Liquid [Reglan Liquid] 10 mg PEG Q6H Potassium Chloride Liquid 40 meq PEG DAILY Acetaminophen Tab [Tylenol Tab] 650 mg PEG Q4H PRN PRN Reason: fever, headache/body aches Acetaminophen Supp [Tylenol Supp] 650 mg RECTAL Q4H PRN PRN Reason: Fever - Follow Up or Referral - Forms/Instructions
--- NOTE | 2017-03-03 08:16 | Gastrointestinal Progress Note ---
Assessment and Plan (1) Guaiac positive stools Status: Acute Assessment and plan: This patient definitely has guaiac positive stools and anemia with hematocrit down to the mid 20s. I suspect this may be due to an underlying gastritis or esophagitis although other etiologies such as gastric cancer and colonic cancer have not been eliminated. I think it be reasonable to start with upper endoscopy and continue to follow the patient's hematocrit and see whether or not acid blocking medication would be helpful in stopping a potential erosive process. Given the drop in the patient's hematocrit from 40% down to 25% I think this is reasonable. If no cause is seen for the anemia observed in this patient we may wish to prep her and have her undergo colonoscopy to follow the following day. Risks were discussed with the patient and will need to be discussed with the family as well and these include bleeding, infection, perforation, cardiac and pulmonary compromise. The patient can be placed on the ventilator with relative ease given her tracheostomy, if needed. Will hold off on blood transfusion until we see if the patient's hematocrit continues to drop. If this drops below 24% with suggest getting 2 units immediately. 03/03/17--This patient's PEG tube had migrated through the pyloric channel and the inflatable bulb had ended up compressing the duodenum resulting in ulceration. In addition erosive esophagitis 3 cm was also noted in the esophagus which will require aggressive acid blockade. Suggest use of Prevacid Solutab's for this twice daily for the first 1 month and then cut back to once a day prior to supper. A prescription has been written for this for use as an outpatient. Current Visit: Yes (2) Pharyngeal dysphagia Status: Acute Assessment and plan: The patient has a tracheostomy in place and this is likely producing some local pharyngeal obstruction. Already has a PEG tube placed and this is helping with her dysphagia she gets 100% of her calories through the PEG tube, and still has some mild malnutrition. We may wish for our dietitians to help tailor regimen that might be more suited to her weight/caloric needs. 03/03/17--the patient's PEG tube will need to remain it at 2 cm, a drop of crazy glue now is holding it fast at this level but may come loose in the future. She has a 24 [place] PEG tube with inflatable bulb which had migrated forward into the duodenum and had resulted in a compression ulceration in addition to erosive esophagitis in her distal esophagus both of which produce the level of anemia she has now experienced. If she does not get better with the Prevacid Solutab's I have written a prescription for she will probably need colonoscopy in the future. Current Visit: Yes (3) Anemia Status: Acute Assessment and plan: This patient has mild anemia which may be secondary to the recent gram-negative kayode sepsis--partially affected by hemolysis versus ongoing blood loss for which we will be performing upper endoscopy tomorrow. If no bleeding sources seen the patient fails to improve we may wish to proceed with colonoscopy down the road as well. Thank is concludes my dictation Owen Bejarano MD have a good day, Dr. Mary Pate. Current Visit: No Qualifiers: Anemia type: unspecified type Qualified Code(s): D64.9 - Anemia, unspecified Gastroenterology - PN: Subj Interval history: No new complaints Exam (Progress Note) - Constitutional Vitals: Period Temp Pulse Resp BP Sys/Vargas Pulse Ox Last 24 Hr 96.1 F-98.9 F 60-72 16-20 92-131/53-72 95-100 General appearance: no acute distress - Eye Eye exam: Present: EOMI - ENT ENT exam: Present: normal exam - Respiratory Respiratory exam: Present: clear to auscultation bilaterally - Cardiovascular Cardiovascular exam: Present: regular rate and rhythm - GI/Abdominal GI/Abdominal exam: Present: normal bowel sounds, tenderness (Epigastric tenderness), soft. Absent: distended, rebound - Extremities Exam Extremities exam: Absent: edema - Skin Skin exam: Present: warm Results - Labs CBC & BMP: 03/03/17 06:38 03/03/17 06:38
[2017-03-03] MEDS ORDERED: PROPOFOL 200 MG/20 ML VIAL IV ONE (08:43)
--- NOTE | 2017-03-03 08:56 | Hospitalist Progress Note ---
<Parris Tellezda - Last Filed: 03/03/17 08:54> Assessment and Plan (1) Acute kidney injury Status: Acute Assessment and plan: BUN and creatinine noted at 8 and 0.4; noted improvement since admission at 48 and 1.20. Remains stable we will continue to monitor 03/03-renal function remains stable BUN and creatinine noted at 7 and 0.3. Current Visit: Yes (2) Fever Status: Acute Current Visit: Yes (3) Leukocytosis Status: Acute Assessment and plan: WBCs have improved to 5.7. Will obtain urinalysis for review. We will de- escalate antibiotics. 03/06 WBCs noted at 7.4 no results noted from urinalysis. Will de-escalate antibiotics upon receipt of urinalysis. Current Visit: Yes (4) Hypernatremia Status: Acute Assessment and plan: Sodium remains elevated at 150. Yesterday sodium was noted at 150 and Thursday at 152. Start free water flushes at 150 mL every 4 hours, consult dietary, and recheck in a.m. 03/03-slight decrease in sodium; sodium noted at 146 today down from 150 on yesterday Seen by dietary on yesterday recommendations given; agree with dietary recommendations will adjust free water flushes based on sodium levels. Current Visit: No (5) Hypophosphatemia Status: Acute Assessment and plan: Phosphorus noted at 2.3 ;we will replace and recheck in a.m. 03/03-phosphorus corrected noted at 2.6 today. Current Visit: Yes Hospitalist: Subjective Interval history: Patient seen and examined; chart reviewed. No significant overnight events. EGD scheduled this a.m. Exam - Constitutional Vitals: Period Temp Pulse Resp BP Sys/Vargas Pulse Ox Last 24 Hr 96.1 F-98.9 F 60-72 16-20 92-131/53-72 95-100 General appearance: normal weight, no acute distress - Head Head exam: Present: normal inspection, normocephalic, atraumatic - Eye Eye exam: Present: EOMI. Absent: conjunctival injection, nystagmus Pupils: Present: BRADLEY, normal accommodation - ENT ENT exam: Present: normal exam, normal external ear exam, normal oropharynx, other (trach noted) - Neck Neck exam: Present: normal inspection, other (tracheostomy noted). Absent: lymphadenopathy, meningismus, tenderness, thyromegaly - Respiratory Respiratory exam: Present: rhonchi - Cardiovascular Cardiovascular exam: Present: regular rate and rhythm. Absent: carotid bruit, diastolic murmur - GI/Abdominal GI/Abdominal exam: Present: normal bowel sounds, soft (PEG tube no) - Extremities Exam Extremities exam: Present: other (Flexion contractures observed) - Back Exam Back exam: Present: normal inspection - Neurological Exam Neurological exam: Present: alert (Nonverbal) - Psychiatric Psychiatric exam: Present: normal affect - Skin Skin exam: Present: normal color, warm, dry Results - Labs CBC & BMP: 03/03/17 06:38 03/03/17 06:38 Lab Results: I have reviewed the past 24 hour labs <Da Pate - Last Filed: 03/03/17 14:15> Hospitalist: Subjective Interval history: Patient seen and examined today. She is hemodynamically and clinically stable. I have reviewed the progress note by LINETTE Tellez, and I agree with the documentation. Active Issues: 1. Acute blood loss anemia: HCT so far is stable. She underwent EGD today, and it was significant for duodenal ulceration from the bulb of the PEG as well as erosive esophagitis. She was seen by Dr. Mackey who recommended prevacid solutab. Will continue to monitor HCT. If anemia worsens, will need further evaluation with colonsocopy. 2. Esophagitis/duodenitis: prevacid solutab 3. HypoPo4: resolved 4. Hypernatremia: improving; continue free water flush 5. ESBL Kleb/candidial UTI: continue zosyn and fluconazole; f/u ucx 6. CRUZITO: resolved; monitor 7. Malnurtion: on TFs 8. chronic respiratory failure s/p trach Exam - Constitutional Vitals: Period Temp Pulse Resp BP Sys/Vargas Pulse Ox Last 24 Hr 96.1 F-98.9 F 55-72 16-27 92-128/53-72 95-100 Results - Labs CBC & BMP: 03/03/17 06:38 03/03/17 06:38
--- NOTE | 2017-03-03 09:03 | Operative Note ---
Date of procedure: 03/03/17 Pre-op diagnosis: Hematocrit dropped from 40% to 26 percent. Post-op diagnosis: other (This patient's PEG tube had migrated through the pyloric channel and the inflatable bulb had ended up compressing the duodenum resulting in ulceration. In addition erosive esophagitis 3 cm was also noted in the esophagus which will require aggressive acid blockade. Suggest use of Prevacid Solutab's for this twice daily for the first 1 month and then cut back to once a day prior to supper. A prescription has been written for this for use as an outpatient.) Procedure: PROCEDURE: Esophagogastroduodenoscopy (EGD) with cold biopsy for pathology REFERRING PHYSICIAN: Kathy Cotton MD INDICATIONS: Drop in hematocrit from 40% to 26% with guaiac positive stools in the face of urinary tract infection. The prior H&P was reviewed and interrim changes are as noted: No change from GI consultation yesterday ENDOSCOPIST: Owen Bejarano MD ENDOSCOPE: Olympus Video 100 System upper endoscope ASA CLASS: 4 EXAM: CV: regular rate and rhythm respiratory: Clear without wheezes abdominal: active bowel sounds MEDICATION: Per nursing anesthesia protocol, see their notes PROCEDURE: After discussion of the potential risks and benefits of upper endoscopy, the informed consent was obtained. The patient was then placed in the left lateral decubitus position where sedation was achieved as noted above. Esophageal intubation was performed without difficulty, and the endoscope was advanced through the esophagus, stomach and duodenum. A slow withdrawal was then performed with retroflexion in the stomach for careful inspection of the incisura angularis, fundus and cardia. The scope was then returned to a neutral position and withdrawn through the esophagus. The patient tolerated the procedure well and without complication. BIOPSIES: Gastric antrum/body PHOTOGRAPHS: Obtained FINDINGS: Hypopharynx and Larynx: Normal Esohagoscopy Upper and middle thirds: Normal Lower third patient has 3 cm of LA class C erosive esophagitis in the distal esophagus that appeared to be weeping blood at the time of the endoscopy. This is thought to be the source of the major blood loss in this patient along with the duodenal ulcer. Esophogastric junctions: Located at 37 cm, no gross evidence of stricturing but the LA class C erosive esophagitis as noted above. Gastroscopy: Cardia/Fundus: No significant hiatal hernia, gastric polyps are noted Body: The PEG tube was a 24 Luxembourger inflatable type and the bulb had migrated down into the duodenal bulb and had produced a compression ulceration. This was pulled back into the stomach and the hub advanced to the skin line at 2 cm. A drop of "crazy glue" was applied to the PEG tube shaft to anchor the hub in place at the 2 cm line to prevent excessive migration. Hopefully this will prevent the bulb from going down to the duodenum in the future and producing compression ulceration as it has this visit. Mild gastritis also noted here and was biopsied along with a few small gastric polyps ranging in size between 7 mm and 9 mm Antrum and pylorus very mild gastritis, biopsied Duodenoscopy: Bulb ulcer was noted here from previous PEG tube bulb that had migrated through the pyloric channel and had produce compression in this region as well as ulceration, see photos. Second and third portions: Normal IMPRESSION: This patient's PEG tube had migrated through the pyloric channel and the inflatable bulb had ended up compressing the duodenum resulting in ulceration. In addition erosive esophagitis 3 cm was also noted in the esophagus which will require aggressive acid blockade. Suggest use of Prevacid Solutab's for this twice daily for the first 1 month and then cut back to once a day prior to supper. A prescription has been written for this for use as an outpatient. RECOMMENDATIONS: Follow up for biopsy results in 1-2 weeks by phone [phone] Continue anti-gastroesophageal reflux measures (avoid carbonated and acidic beverages, avoid eating within 2 hours of bedtime, avoid tight fitting clothing , and elevate the front bed posts 6 inches prior to sleeping. The patient can certainly be discharged home at this time in my opinion as her hematocrit seems stable and she is not actively bleeding. The PEG tube needs to be monitored to make sure that the home is at 2 cm at the skin line to prevent further migration. Prevacid Solutab's 30 mg dissolved in 10 mL of water to be given through the PEG tube twice daily for the next 1 month and then once a day thereafter. Her primary care provider should recheck her hematocrit periodically to make sure that this is maintaining stability No colonoscopy will be needed as the above findings explain the patient's hematocrit drop. If this fails to come back to normal we can certainly perform colonoscopy down the road. Owen Bejarano MD COPY TO: Kathy Cotton MD Anesthesia: MAC Surgeon / Physician: Owen Bejarano Estimated blood loss: minimal Specimens: other (Gastric antrum/body) Condition: stable Disposition: post procedure unit ([facility]I. Suite) Results - Labs CBC & BMP: 03/03/17 06:38 03/03/17 06:38 Discharge Plan - Discharge Medications No Action Docusate Sodium Liquid [Colace Liquid] 100 mg PEG DAILY Lactobacillus Acidophilus [Acidophilus] 2 each PEG QID Lactulose Liquid [Chronulac] 20 gm PO Q4H PRN #0 udcup PRN Reason: Constipation Nystatin Powder [Mycostatin Powder] 1 applic TOP TID powder Albuterol Neb [Proventil Neb] 3 ml INH Q4HR Bisacodyl Supp [Dulcolax Supp] 10 mg RECTAL DAILY PRN PRN Reason: Constipation Ondansetron Tab [Zofran Tab] 4 mg PEG Q4H PRN PRN Reason: Nausea Citalopram Hydrobromide [Citalopram HBr] 15 mg PEG BEDTIME Menthol/Zinc Oxide Oint [Calmoseptine Oint] 1 applic TOP BID levETIRAcetam LIQUID [Keppra Liquid] 1,000 mg PO BID ml Metoclopramide Liquid [Reglan Liquid] 10 mg PO Q6HR Citalopram [CeleXA] 20 mg PO DAILY Scopolamine 1.5 mg Patch [Transderm Scop 1.5 mg/72 hr Patch] 1 patch TRANSDERM Q3DAY Sulfameth/Trimeth 800-160 Tab [Bactrim DS Tab] 1 tablet PO BID Potassium Iodide Oral Soln [Sski] 300 mg PO TID HYDROcodone/ACETAMIN 5-325 [[place] 5-325] 1 tablet PEG Q6H PRN PRN Reason: Pain Metoclopramide Liquid [Reglan Liquid] 10 mg PEG Q6H Potassium Chloride Liquid 40 meq PEG DAILY Acetaminophen Tab [Tylenol Tab] 650 mg PEG Q4H PRN PRN Reason: fever, headache/body aches Acetaminophen Supp [Tylenol Supp] 650 mg RECTAL Q4H PRN PRN Reason: Fever - Follow Up or Referral - Forms/Instructions
--- NOTE | 2017-03-03 09:11 | Anesthesia Post-Op ---
Anesthesia Post OP - Post Ansesthetic Evaluation Patient seen in post op: Yes Resp: within normal limits CV: within normal limits Mental: within normal limits Temp: within normal limits [id number]: within normal limits Nausea and Vomiting: within normal limits Pain: within normal limits
[2017-03-03] MEDS: PANTOPRAZOLE 40 MG TABLET PO SCH (11:33)
[2017-03-03] MEDS: levETIRAcetam LIQUID 100 MG/ML 30 ML/BOTTLE PO SCH ×2 (11:33→20:48)
[2017-03-03] MEDS: LANSOPRAZOLE ODT 30 MG TABLET PO SCH ×2 (14:50→20:48)
[2017-03-03] MEDS: FLUCONAZOLE INJ 100 MG in IV BAG 1 EACH IV SCH (22:20)
[2017-03-04] MEDS: POTASSIUM CHLORIDE INJ 30 MEQ in DEXTROSE 5% NACL 0.45% 1,000 ML IV SCH ×3 (01:21→17:27)
[2017-03-04] MEDS: PIPERACILLIN/TAZOBACTAM 3,375 MG in SODIUM CHLORIDE 0.9% 100 ML IV SCH ×3 (01:22→17:29)
[2017-03-04 02:55] LABS: Basophils % 0.1 % (0.0-0.8); Eosinophils # 0.3 10*3/uL (0.0-0.87); Eosinophils % 3.8 % (0.00-10.9); Hematocrit 27.2 VOL% (35.7-47.0); Hemoglobin 8.8 GM/DL (12.0-16.0); Immature Granulocytes % 0.5 %; Immature Granulocytes Absolute 0.04 #; Lymphocytes # 1.6 10*3/uL (1.4-4.0); Mean Corpuscular HGB Conc 32.4 GM/DL (32-36); Mean Corpuscular Hemoglobin 30 PG (27-34); Mean Corpuscular Volume 92.5 FL (87-102); Mean Platelet Volume 10.4 FL (9.6-12.0); Monocytes # 0.5 10*3/uL (0.11-0.8); Monocytes % 6.3 % (1.7-12.7); NRBC # 0.08 10*3/uL; Neutrophils # 5.8 10*3/uL (1.4-7.4); Neutrophils % 70.3 % (38.7-73.9); Platelet Count 170 T/CUMM (130-400); Red Blood Count 2.94 MC/CUMM (3.8-5.5); Red Cell Distribution Width 15.9 % (9.3-17.3); White Blood Count 8.3 T/CUMM (4-12)
[2017-03-04 03:19] LABS: Alanine Aminotransferase 21 U/L (13-56); Albumin 1.9 G/DL (3.4-5.0); Alkaline Phosphatase 78 U/L (45-117); Aspartate Amino Transferase 14 U/L (0-37); Bilirubin,Total < 0.39 MG/DL (0.2-1.0); Blood Urea Nitrogen 10 MG/DL (7-18); Calcium 8.4 MG/DL (8.5-10.1); Glucose 116 MG/DL (74-106); Magnesium 1.9 MG/DL (1.8-2.4); Osmolality,Calculated 282.1 MOS/KG (273-304); Phosphorous 2.6 MG/DL (2.5-4.9); Potassium 4.3 MMOL/L (3.5-5.1); Sodium 142 MMOL/L (136-145); Total Protein 5.7 G/DL (6.4-8.3)
--- NOTE | 2017-03-04 07:04 | XRay Report ---
Portable chest Date: 03/04/2017 Clinical history: COPD Comparison: 02/26/2017 Technique: Portable AP sitting chest Findings: The heart is normal in size with stable tracheostomy tube. Artifactual densities Limited exam. Progressive parenchymal findings in the lower lung zones. Stable mediastinum and osseous structures. Impression: Tracheostomy tube remains in satisfactory position. Progressive atelectasis/infiltration in the lower lung zones. PROCEDURE INTERPRETED AT [facility] DEPARTMENT OF RADIOLOGY Final Report Signed by: Dr. Chandni Woodard
--- NOTE | 2017-03-04 09:00 | Discharge Summary ---
<Parris Tellezda - Last Filed: 03/04/17 08:32> Hospital Course - Hospital Course Hospital Course: This is a very unfortunate chronically ill 56-year-old female that presented to the ED at [facility] on February 26, 2017 via EMS from [facility] for evaluation of leukocytosis and fever. The patient has a very complex and extensive medical history significant for: Dementia, seizures, traumatic brain injury, pneumonia, respiratory failure with tracheostomy placement, chronic urinary tract infections, quadriplegia, acute kidney injury, and pharyngeal dysphasia. Patient has a surgical history significant for tracheostomy placement, hysterectomy, percutaneous gastrostomy tube placement, and multiple orthopedic procedures. The patient had been evaluated by the nursing staff at the [facility] and was noted to have a fever of 101.7. Labs were obtained which reported leukocytosis with a white blood cell count of 21. Upon advisement of the medical biller coder, the patient was transferred to [facility] for further evaluation. At the time of ED presentation, the patient was afebrile with a temperature noted 98.3; however she was tachycardic with a pulse rate of 138 and O2 sat of 91%. Labs were obtained, hematology panel reported a white blood cell count at 18.1, hemoglobin at 13.0, hematocrit at 40.3, and platelet count at 308. Coagulation panel revealed an INR at 1.1. Arterial blood gases were obtained which reported a pH of 7.326, PCO2 of 31.8, and HC03 of 17.9. Chemistry panel reported a sodium at 147, potassium at 5.6, chloride at 113, carbon dioxide at 18, anion gap 21.6, BUN at 48, creatinine at 1.20, glucose at 129, calculated osmolality at 306.4, lactic acid at 1.4, calcium at 9.0, alkaline phosphatase at 135, albumin at 2.9, and globulin at 5.1. Urinalysis was obtained which was significant for urobilinogen of greater than 2.0 and urine leukocytes large in amount. Chest x-ray was obtained which was significant for right middle lobe pneumonia. The patient was subsequently admitted to the hospitalist services for continuation of care. Empiric antibiotic coverage for right middle lobe pneumonia and urinary tract infection were initiated. The patient gently rehydrated. During the clinical encounter, the patient experienced multiple episodes of hypernatremia with sodium levels as high as 152. Free water flushes were initiated and a dietary consultation was obtained. The patient's sodium level has normalized; it is noted at 142 this morning. In addition, the patient developed melena during the clinical encounter. All anticoagulant agents were discontinued and a gastroenterology consult was requested. On March 03, 2017, the patient underwent esophagogastroduodenoscopy under the direction of Dr. Owen Richardson; which was significant for PEG tube migration through the pyloric channel which compressed the duodenum subsequently causing ulceration. In addition the patient was also discovered to have erosive esophagitis. The patient was started on protein-pump inhibitors for treatment of these findings. The patient's condition is stable,vitals are decent.. She has not experienced any significant overnight events. She is tolerating enteral feedings and flushes without incident. The patient's sodium is normalized today at 142. Today, we feel that the patient is indeed appropriate for discharge back to the [facility] for continuation of care. Her CXR this am showed progressive atelectasis/ infiltration in the lower lung zones and her sputum cultures grew chyseobacterium indologenes and gram negative rods resistant to Zosyn and Levaquin but sensitivie to Tobramycin, so I 'd hold dc for now and start Tobramycin and still continue the Zosyn for the Klebsiella UTI. Diagnosis - Discharge Diagnosis (1) Acute kidney injury Status: Acute (2) Fever Status: Acute (3) Leukocytosis Status: Acute (4) Hypernatremia Status: Acute (5) Hypophosphatemia Status: Acute Discharge Plan - Discharge Medications No Action Docusate Sodium Liquid [Colace Liquid] 100 mg PEG DAILY Lactobacillus Acidophilus [Acidophilus] 2 each PEG QID Lactulose Liquid [Chronulac] 20 gm PO Q4H PRN #0 udcup PRN Reason: Constipation Nystatin Powder [Mycostatin Powder] 1 applic TOP TID powder Albuterol Neb [Proventil Neb] 3 ml INH Q4HR Bisacodyl Supp [Dulcolax Supp] 10 mg RECTAL DAILY PRN PRN Reason: Constipation Ondansetron Tab [Zofran Tab] 4 mg PEG Q4H PRN PRN Reason: Nausea Citalopram Hydrobromide [Citalopram HBr] 15 mg PEG BEDTIME Menthol/Zinc Oxide Oint [Calmoseptine Oint] 1 applic TOP BID levETIRAcetam LIQUID [Keppra Liquid] 1,000 mg PO BID ml Metoclopramide Liquid [Reglan Liquid] 10 mg PO Q6HR Citalopram [CeleXA] 20 mg PO DAILY Scopolamine 1.5 mg Patch [Transderm Scop 1.5 mg/72 hr Patch] 1 patch TRANSDERM Q3DAY Sulfameth/Trimeth 800-160 Tab [Bactrim DS Tab] 1 tablet PO BID Potassium Iodide Oral Soln [Sski] 300 mg PO TID HYDROcodone/ACETAMIN 5-325 [[place] 5-325] 1 tablet PEG Q6H PRN PRN Reason: Pain Metoclopramide Liquid [Reglan Liquid] 10 mg PEG Q6H Potassium Chloride Liquid 40 meq PEG DAILY Acetaminophen Tab [Tylenol Tab] 650 mg PEG Q4H PRN PRN Reason: fever, headache/body aches Acetaminophen Supp [Tylenol Supp] 650 mg RECTAL Q4H PRN PRN Reason: Fever - Follow Up or Referral - Forms/Instructions Exam - Constitutional Vitals: Period Temp Pulse Resp BP Sys/Vargas Pulse Ox Last 24 Hr 97.1 F-98.4 F 60-75 18-20 91-110/56-74 97-100 Discharge Results Procedures and tests throughout hospitalization: Pending Orders 03/01/17 06:10 Occult Blood, Stool Routine 03/01/17 10:00 Sputum Culture and Gram Stain Routine 03/04/17 05:20 Urine Culture Labs on day of discharge: Labs from last 24 hours 03/04/17 03/04/17 02:17 02:17 WBC 8.3 RBC 2.94 L Hgb 8.8 L Hct 27.2 L MCV 92.5 MCH 30 MCHC 32.4 RDW 15.9 Plt Count 170 MPV 10.4 Neut % (Auto) 70.3 Lymph % (Auto) 19.0 L Dickinson % (Auto) 6.3 Eos % (Auto) 3.8 Baso % (Auto) 0.1 Neut # (Auto) 5.8 Lymph # (Auto) 1.6 Dickinson # (Auto) 0.5 Eos # (Auto) 0.3 Baso # (Auto) 0.0 Immature Gran % 0.5 Nucleated RBC % 1.0 Immature Gran # 0.04 Nucleated RBCs # 0.08 Sodium 142 Potassium 4.3 Chloride 109 H Carbon Dioxide 25 Anion Gap 12.3 BUN 10 Creatinine 0.30 L GFR Calculation 123 BUN/Creatinine Ratio 33.00 H Glucose 116 H Calculated Osmolality 282.1 Calcium 8.4 L Phosphorus 2.6 Magnesium 1.9 Total Bilirubin < 0.39 AST 14 ALT 21 Alkaline Phosphatase 78 Total Protein 5.7 L Albumin 1.9 L Globulin 3.8 H Albumin/Globulin Ratio 0.5 L Preliminary micro results at discharge 03/01/17 10:00 Sputum Culture - Preliminary Sputum Chryseobacterium indologenes Gram Negative Rods#2 DS: Provider Date of admission: 02/27/17 01:51 Primary care physician: . No PCP Attending physician on admission: Severino Mason MD Consults: 02/27/17 01:58 Consult to Wound Care - [place] [CONS] Routine Reason for Wound Care: Wound Care Management Consult Comment: Sacral wound 02/27/17 02:01 Consult to Dietitian [CONS] Routine Reason for Dietitian: TF-Initiate/Manage 02/27/17 04:18 Consult to Dietitian [CONS] Routine Reason for Dietitian: TF-Initiate/Manage 03/02/17 10:20 Consult to Dietitian [CONS] Routine Reason for Dietitian: Other Consult Comment: look at water flushes, sodium still high 03/02/17 10:23 Consult to Physician [CONS] Routine Comment: 4+ blood in stool Consulting Provider: Owen Bejarano Person Notified: DENNIS Date Notified: 03/02/17 Time Notified: 10:39 03/02/17 15:35 Consult to Anesthesiology [CONS] Routine Consulting Provider: Reason for Anesthesiology: Pre-op Clearance Discharging clinician: Jackie Tellez CNP <Cassie Vincent - Last Filed: 03/04/17 10:08> Diagnosis - Discharge Diagnosis (1) Right middle lobe pneumonia Status: Acute (2) Urinary tract infection Status: Acute (3) Acute respiratory failure Status: Chronic (4) Sacral decubitus ulcer Status: Chronic (5) Quadriplegia Status: Chronic (6) Chronic respiratory failure Status: Chronic (7) Tracheostomy dependent Status: Acute Exam - Constitutional General appearance: no acute distress, other (trach in place) - Respiratory Respiratory exam: Present: clear to auscultation bilaterally - GI/Abdominal GI/Abdominal exam: Present: normal bowel sounds - Extremities Exam Extremities exam: Present: other (no edema, quadriplegic) - Neurological Exam Neurological exam: Present: alert
[2017-03-04] MEDS: levETIRAcetam LIQUID 100 MG/ML 30 ML/BOTTLE PO SCH ×2 (09:34→22:44)
[2017-03-04] MEDS: LANSOPRAZOLE ODT 30 MG TABLET PO SCH ×2 (09:36→22:24)
--- NOTE | 2017-03-04 11:20 | Pathology Report from [facility] ---
[facility] ACCESSION # : [id number] PATIENT NAME : Catie Clemons ORDERING DR : Owen Bejarano MD CLINICAL HX: #NAME? POST-OP DX: Same SPECIMEN INFO: BLACK GROSS DESCRIPTION: Received in formalin labeled CATIE CLEMONS are three pink smallwood mucosal tissue fragments measuring collectively 1.2 x 0.3 cm submitted in one cassette. DIAGNOSIS FOR CATIE CLEMONS: GASTRIC ANTRAL BIOPSY: Chronic antral gastritis. No evidence of malignancy. Focal cystic change. Special stain for H. pylori-like organisms is NEGATIVE. COLLECTED DATE: 03/03/2017 [facility] REPORT DATE: 03/04/2017 ELECTRONICALLY SIGNED BY: Yair Garcia III, M.D. 03/04/2017 - 9:52:03 [facility]
[2017-03-04] MEDS: TOBRAMYCIN INJ 100 MG in SODIUM CHLORIDE 0.9% 100 ML IV SCH ×2 (15:02→23:12)
--- NOTE | 2017-03-04 17:13 | Gastrointestinal Progress Note ---
Assessment and Plan (1) Guaiac positive stools Status: Acute Assessment and plan: This patient definitely has guaiac positive stools and anemia with hematocrit down to the mid 20s. I suspect this may be due to an underlying gastritis or esophagitis although other etiologies such as gastric cancer and colonic cancer have not been eliminated. I think it be reasonable to start with upper endoscopy and continue to follow the patient's hematocrit and see whether or not acid blocking medication would be helpful in stopping a potential erosive process. Given the drop in the patient's hematocrit from 40% down to 25% I think this is reasonable. If no cause is seen for the anemia observed in this patient we may wish to prep her and have her undergo colonoscopy to follow the following day. Risks were discussed with the patient and will need to be discussed with the family as well and these include bleeding, infection, perforation, cardiac and pulmonary compromise. The patient can be placed on the ventilator with relative ease given her tracheostomy, if needed. Will hold off on blood transfusion until we see if the patient's hematocrit continues to drop. If this drops below 24% with suggest getting 2 units immediately. 03/03/17--This patient's PEG tube had migrated through the pyloric channel and the inflatable bulb had ended up compressing the duodenum resulting in ulceration. In addition erosive esophagitis 3 cm was also noted in the esophagus which will require aggressive acid blockade. Suggest use of Prevacid Solutab's for this twice daily for the first 1 month and then cut back to once a day prior to supper. A prescription has been written for this for use as an outpatient. 03/04/17--The patient's hematocrit is stable. It is likely that her anemia secondary to the combination of the duodenal ulcer and erosive esophagitis. She should do well on the Prevacid Solutab's twice daily as an outpatient, agree with use of Protonix twice daily until that time. GI consultation is complete at this point, he can certainly discharge her back to the [facility] from a GI standpoint at any time. Current Visit: Yes (2) Pharyngeal dysphagia Status: Acute Assessment and plan: The patient has a tracheostomy in place and this is likely producing some local pharyngeal obstruction. Already has a PEG tube placed and this is helping with her dysphagia she gets 100% of her calories through the PEG tube, and still has some mild malnutrition. We may wish for our dietitians to help tailor regimen that might be more suited to her weight/caloric needs. 03/03/17--the patient's PEG tube will need to remain it at 2 cm, a drop of crazy glue now is holding it fast at this level but may come loose in the future. She has a 24 [place] PEG tube with inflatable bulb which had migrated forward into the duodenum and had resulted in a compression ulceration in addition to erosive esophagitis in her distal esophagus both of which produce the level of anemia she has now experienced. If she does not get better with the Prevacid Solutab's I have written a prescription for she will probably need colonoscopy in the future. 03/04/17--As mentioned above patient had a compression ulceration in the duodenal bulb as well as the LA class C erosive esophagitis causing the dysphagia. I had mistakenly ordered a gastric emptying study today but canceled this in time to prevent the procedure from occurring. The Prevacid Solutab prescription has been written left in the front of the chart. She may need a colonoscopy in the future if her anemia does not resolve with the above intervention. Current Visit: Yes (3) Anemia Status: Acute Assessment and plan: This patient has mild anemia which may be secondary to the recent gram-negative kayode sepsis--partially affected by hemolysis versus ongoing blood loss for which we will be performing upper endoscopy tomorrow. If no bleeding sources seen the patient fails to improve we may wish to proceed with colonoscopy down the road as well. 03/04/17--The anemia slowly improving with time. I do suspect that she may need a colonoscopy if she does not improve entirely over time with the above acid blocking medication. Will sign off at this time thank you so much for allowing me to see this very pleasant patient. Current Visit: No Qualifiers: Anemia type: unspecified type Qualified Code(s): D64.9 - Anemia, unspecified Gastroenterology - PN: Subj Interval history: The patient appears to be tolerating her PEG tubes feedings well at this point. No new complaints. Her hematocrit appears to be slowly improving. White blood cell count is also up to 8K she is growing an unusual bug out of her sputum that is not being covered by the Zosyn/Levaquin that she has been given. She is being kept over another day in order to adjust medications. She has a low-grade diarrhea and the dietitian requested use of Culturelle as a probiotic which is fine. Exam (Progress Note) - Constitutional Vitals: Period Temp Pulse Resp BP Sys/Vargas Pulse Ox Last 24 Hr 97.3 F-98.1 F 62-75 18-20 91-100/56-64 96-100 General appearance: no acute distress - Head Head exam: Present: normocephalic - Eye Eye exam: Present: EOMI Pupils: Present: BRADLEY - Respiratory Respiratory exam: Present: clear to auscultation bilaterally, decreased breath sounds (In the bases) - Cardiovascular Cardiovascular exam: Present: regular rate and rhythm - GI/Abdominal GI/Abdominal exam: Present: normal bowel sounds, soft. Absent: distended, guarding, tenderness, rebound - Extremities Exam Extremities exam: Present: edema - Neurological Exam Neurological exam: Present: alert (Patient has tracheostomy but appears to understand most of what said to her and shakes her head yes or no appropriately when asked questions) - Psychiatric Psychiatric exam: Present: flat affect - Skin Skin exam: Present: warm Results - Labs CBC & BMP: 03/04/17 02:17 03/04/17 02:17
[2017-03-04] MEDS: LACTOBACILLUS RHAMNOSUS GG CAPSULE PEG SCH (22:24)
[2017-03-04] MEDS: FLUCONAZOLE INJ 100 MG in IV BAG 1 EACH IV SCH (22:24)
[2017-03-05] MEDS: POTASSIUM CHLORIDE INJ 30 MEQ in DEXTROSE 5% NACL 0.45% 1,000 ML IV SCH ×2 (01:43→13:47)
[2017-03-05] MEDS: PIPERACILLIN/TAZOBACTAM 3,375 MG in SODIUM CHLORIDE 0.9% 100 ML IV SCH ×2 (01:43→10:12)
[2017-03-05] MEDS: TOBRAMYCIN INJ 100 MG in SODIUM CHLORIDE 0.9% 100 ML IV SCH (06:22)
--- NOTE | 2017-03-05 09:21 | Hospitalist Progress Note ---
Assessment and Plan (1) Acute kidney injury Status: Acute Assessment and plan: BUN and creatinine noted at 8 and 0.4; noted improvement since admission at 48 and 1.20. Remains stable we will continue to monitor 03/03-renal function remains stable BUN and creatinine noted at 7 and 0.3. 03/05-no labs available we will recheck CMP in a.m. Current Visit: Yes (2) Fever Status: Acute Assessment and plan: No fever reported on last night. Current Visit: Yes (3) Leukocytosis Status: Acute Assessment and plan: WBCs have improved to 5.7. Will obtain urinalysis for review. We will de- escalate antibiotics. 03/04 WBCs noted at 7.4 no results noted from urinalysis. Will de-escalate antibiotics upon receipt of urinalysis. 03/05-culture sensitivity grew out multiple infectious microorganisms; we will consult infectious disease to evaluate and treat. Current Visit: Yes (4) Hypernatremia Status: Acute Assessment and plan: Sodium remains elevated at 150. Yesterday sodium was noted at 150 and Thursday at 152. Start free water flushes at 150 mL every 4 hours, consult dietary, and recheck in a.m. 03/03-slight decrease in sodium; sodium noted at 146 today down from 150 on yesterday Seen by dietary on yesterday recommendations given; agree with dietary recommendations will adjust free water flushes based on sodium levels. Current Visit: No (5) Hypophosphatemia Status: Acute Assessment and plan: Phosphorus noted at 2.3 ;we will replace and recheck in a.m. 03/03-phosphorus corrected noted at 2.6 today. Current Visit: Yes Hospitalist: Subjective Interval history: Patient seen and examined; chart reviewed. No significant overnight events. Culture and sensitivity reported the presence of multiple infectious microorganisms. We will consult infectious disease to evaluate and treat. Exam - Constitutional Vitals: Period Temp Pulse Resp BP Sys/Vargas Pulse Ox Last 24 Hr 97.1 F-98.5 F 66-73 16-20 94-112/56-72 96-100 General appearance: normal weight, no acute distress - Head Head exam: Present: normal inspection, normocephalic - Eye Eye exam: Present: EOMI, conjunctival injection Pupils: Present: BRADLEY, normal accommodation - ENT ENT exam: Present: normal exam, normal external ear exam, normal oropharynx - Neck Neck exam: Present: normal inspection, other (Tracheostomy present). Absent: lymphadenopathy, meningismus, tenderness, thyromegaly - Respiratory Respiratory exam: Present: rhonchi, other (Tracheostomy placement noted) - Cardiovascular Cardiovascular exam: Present: regular rate and rhythm. Absent: carotid bruit, diastolic murmur, gallop, JVD, rubs, systolic murmur - GI/Abdominal GI/Abdominal exam: Present: normal bowel sounds, soft (PEG tube noted) - Extremities Exam Extremities exam: Present: other (Flexion contractures to the bilateral upper extremities ) - Back Exam Back exam: Present: normal inspection - Neurological Exam Neurological exam: Present: alert, other (Nonverbal) - Psychiatric Psychiatric exam: Present: normal affect - Skin Skin exam: Present: normal color, warm, dry Results - Labs CBC & BMP: 03/04/17 02:17 03/04/17 02:17 Lab Results: I have reviewed the past 24 hour labs
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
[2017-03-05] MEDS: LACTOBACILLUS RHAMNOSUS GG CAPSULE PEG SCH (10:10)
[2017-03-05] MEDS: LANSOPRAZOLE ODT 30 MG TABLET PO SCH (10:11)
[2017-03-05] MEDS: levETIRAcetam LIQUID 100 MG/ML 30 ML/BOTTLE PO SCH (10:11)
[2017-03-05 11:51] VITALS: BP 88/55
== END 2017-03-05 13:45 | DRG 720 ==
LOC: EDUNIT# → EDBD → N.ED 23:14 → N.CC 02-27 01:51 → SUATTDRO 02-27 01:51 → N.EDINP 02-27 01:51 → N.5E 03-01 15:23
PROVIDERS: ADMIT Internal Medicine; ATTEND Internal Medicine

== ENCOUNTER 2017-07-01 20:59 | Inpatient (IN) ==
[2017-07-01] MEDS ORDERED: CLINDAMYCIN INJ 600 MG in PREMIX 1 EACH IV STA (21:50)
[2017-07-01] MEDS ORDERED: cefTRIAXone 1,000 MG in SODIUM CHLORIDE 0.9% 100 ML IV STA (21:50)
[2017-07-01] MEDS ORDERED: methylPREDNISolone SOD SUC 125 MG/2 ML VIAL IV STA (21:50)
[2017-07-01] MEDS ORDERED: ALBUTEROL 2.5 MG/3 ML NEB RESP TX SCH (22:00)
[2017-07-01 22:21] LABS: Basophils % 0.3 % (0.0-0.8); Eosinophils # 0.1 10*3/uL (0.0-0.87); Eosinophils % 0.5 % (0.00-10.9); Hematocrit 33.1 VOL% (35.7-47.0); Hemoglobin 11.3 GM/DL (12.0-16.0); Immature Granulocytes % 0.5 %; Immature Granulocytes Absolute 0.05 #; Lymphocytes % 9.1 % (21.3-54.2); Mean Corpuscular HGB Conc 34.1 GM/DL (32-36); Mean Corpuscular Hemoglobin 31 PG (27-34); Mean Corpuscular Volume 91.7 FL (87-102); Monocytes # 0.4 10*3/uL (0.11-0.8); Monocytes % 3.3 % (1.7-12.7); Neutrophils # 9.6 10*3/uL (1.4-7.4); Neutrophils % 86.3 % (38.7-73.9); Platelet Count 200 T/CUMM (130-400); Red Blood Count 3.61 MC/CUMM (3.8-5.5); Red Cell Distribution Width 13.1 % (9.3-17.3); White Blood Count 11.1 T/CUMM (4-12)
[2017-07-01] MEDS ORDERED: CLINDAMYCIN INJ 50 ML IV ONE (22:32)
[2017-07-01] MEDS ORDERED: SODIUM CHLORIDE 0.9% 100 ML IV ONE (22:32)
[2017-07-01] MEDS ORDERED: methylPREDNISolone SOD SUC 125 MG/2 ML VIAL ONE (22:32)
[2017-07-01] MEDS ORDERED: cefTRIAXone 1,000 MG VIAL ONE (22:32)
[2017-07-01 22:43] LABS: Albumin 2.8 G/DL (3.4-5.0); Bilirubin,Total 0.5 MG/DL (0.2-1.0); Calcium 9.2 MG/DL (8.5-10.1); Osmolality,Calculated 289.7 MOS/KG (273-304); Potassium 3.8 MMOL/L (3.5-5.1); Total Protein 7.4 G/DL (6.4-8.3)
[2017-07-01 23:10] LABS: Apearance,Urine CLOUDY (Clear); Bacteria,Urine Many /HPF (Few); Bilirubin,Urine Negative (Negative); Blood, Urine Small mg/dL (Negative); Glucose,Urine (UA) Negative (Negative); Ketones,Urine Negative (Negative); Mucus,Urine Many /LPF (Occasional); Nitrite,Urine Negative (Negative); Protein,Urine 100 MG/DL; RBC,Urine 56 /HPF (0-4); Squamous Epithelial Cell,Urine Few /HPF (0-10); Urine Color Yellow (Yellow); Urine Urobilinogen < 2.0 EU/DL (0.2-1.0); WBC,Urine 855 /HPF (0-6)
[2017-07-02] MEDS ORDERED: SODIUM CHLORIDE 0.45% 500 ML IV ONE (02:13)
[2017-07-02] MEDS ORDERED: ONDANSETRON 4 MG/2 ML VIAL IV PRN (02:13)
[2017-07-02] MEDS: LEVOFLOXACIN INJ 750 MG in PREMIX 1 EACH IV SCH (03:10)
[2017-07-02] MEDS ORDERED: ACETAMINOPHEN 325 MG TABLET PEG PRN (03:34)
[2017-07-02] MEDS ORDERED: LACTULOSE 20 GM/30 ML UDCUP PO PRN (03:34)
[2017-07-02] MEDS ORDERED: METOCLOPRAMIDE 10 MG/10 ML UDCUP PEG SCH (04:00)
[2017-07-02] MEDS ORDERED: ACETAMINOPHEN 325 MG/10.15 ML UDCUP PEG PRN (07:00)
[2017-07-02] MEDS: SODIUM CHLORIDE 0.45% 1,000 ML IV SCH ×2 (08:10→14:06)
[2017-07-02] MEDS ORDERED: PIPERACILLIN/TAZOBACTAM 3,375 MG in SODIUM CHLORIDE 0.9% 100 ML IV SCH (09:00)
[2017-07-02] MEDS: ENOXAPARIN 40 MG/0.4 ML SYRINGE SUBCUT SCH (09:18)
[2017-07-02] MEDS: levETIRAcetam LIQUID 100 MG/ML 30 ML/BOTTLE PO SCH ×2 (09:18→22:14)
[2017-07-02] MEDS: PANTOPRAZOLE 40 MG VIAL IV SCH (09:19)
[2017-07-02] MEDS: METOCLOPRAMIDE 10 MG/10 ML UDCUP PEG SCH ×4 (09:20→22:14)
[2017-07-02] MEDS: CITALOPRAM 20 MG TABLET PEG SCH (09:20)
[2017-07-02] MEDS: SCOPOLAMINE 1.5 MG PATCH TRANSDERM SCH (09:20)
[2017-07-02] MEDS: LACTOBACILLUS ACIDOPHILUS/BULGARICUS 1 PACKET PEG SCH ×4 (09:20→22:14)
[2017-07-02] MEDS: POLYETHYLENE GLYCOL POWDER 17 GM PACK PEG SCH (09:20)
[2017-07-02] MEDS ORDERED: GLUCAGON 1 MG VIAL IM PRN (11:22)
[2017-07-02] MEDS ORDERED: DEXTROSE 50% 25 GM/50 ML VIAL IV PRN (11:22)
[2017-07-02] MEDS: INSULIN REGULAR 100 UNIT/ML SUBCUT SCH ×2 (14:02→17:04)
[2017-07-03] MEDS: SODIUM CHLORIDE 0.45% 1,000 ML IV SCH ×4 (01:19→20:59)
[2017-07-03] MEDS: INSULIN REGULAR 100 UNIT/ML SUBCUT SCH ×4 (01:26→18:28)
[2017-07-03 07:26] LABS: Basophils % 0.2 % (0.0-0.8); Eosinophils # 0.1 10*3/uL (0.0-0.87); Hematocrit 26.1 VOL% (35.7-47.0); Hemoglobin 8.6 GM/DL (12.0-16.0); Immature Granulocytes % 0.5 %; Immature Granulocytes Absolute 0.03 #; Lymphocytes # 1.4 10*3/uL (1.4-4.0); Lymphocytes % 20.8 % (21.3-54.2); Mean Corpuscular Hemoglobin 31 PG (27-34); Mean Corpuscular Volume 93.9 FL (87-102); Monocytes # 0.6 10*3/uL (0.11-0.8); Monocytes % 9.1 % (1.7-12.7); Neutrophils # 4.4 10*3/uL (1.4-7.4); Neutrophils % 67.4 % (38.7-73.9); Platelet Count 154 T/CUMM (130-400); Red Blood Count 2.78 MC/CUMM (3.8-5.5); Red Cell Distribution Width 13.2 % (9.3-17.3); White Blood Count 6.5 T/CUMM (4-12)
[2017-07-03 07:53] LABS: Alanine Aminotransferase 51 U/L (13-56); Albumin 2.2 G/DL (3.4-5.0); Alkaline Phosphatase 61 U/L (45-117); Aspartate Amino Transferase 22 U/L (0-37); Bilirubin,Total < 0.39 MG/DL (0.2-1.0); Blood Urea Nitrogen 13 MG/DL (7-18); Calcium 8.3 MG/DL (8.5-10.1); Glucose 77 MG/DL (74-106); Osmolality,Calculated 286.7 MOS/KG (273-304); Potassium 3.4 MMOL/L (3.5-5.1); Sodium 145 MMOL/L (136-145); Total Protein 5.7 G/DL (6.4-8.3)
[2017-07-03 07:54] LABS: Calcium 8.4 MG/DL (8.5-10.1); Osmolality,Calculated 286.7 MOS/KG (273-304); Phosphorous 2.7 MG/DL (2.5-4.9); Potassium 3.5 MMOL/L (3.5-5.1)
[2017-07-03] MEDS: CITALOPRAM 20 MG TABLET PEG SCH (09:54)
[2017-07-03] MEDS: POLYETHYLENE GLYCOL POWDER 17 GM PACK PEG SCH (09:55)
[2017-07-03] MEDS: MORPHINE 2 MG/1 ML SYRINGE IV PRN ×2 (09:56→16:24)
[2017-07-03] MEDS: ENOXAPARIN 40 MG/0.4 ML SYRINGE SUBCUT SCH (09:56)
[2017-07-03] MEDS: METOCLOPRAMIDE 10 MG/10 ML UDCUP PEG SCH ×4 (09:56→21:00)
[2017-07-03] MEDS: LACTOBACILLUS ACIDOPHILUS/BULGARICUS 1 PACKET PEG SCH ×4 (09:57→21:00)
[2017-07-03] MEDS: levETIRAcetam LIQUID 100 MG/ML 30 ML/BOTTLE PO SCH ×2 (09:57→21:10)
[2017-07-03] MEDS: LEVOFLOXACIN INJ 750 MG in PREMIX 1 EACH IV SCH (09:58)
[2017-07-03] MEDS: PANTOPRAZOLE 40 MG VIAL IV SCH (09:59)
[2017-07-04] MEDS: INSULIN REGULAR 100 UNIT/ML SUBCUT SCH ×3 (00:39→13:32)
[2017-07-04] MEDS: SODIUM CHLORIDE 0.45% 1,000 ML IV SCH ×2 (05:22→16:25)
[2017-07-04] MEDS: CITALOPRAM 20 MG TABLET PEG SCH (10:02)
[2017-07-04] MEDS: ENOXAPARIN 40 MG/0.4 ML SYRINGE SUBCUT SCH (10:02)
[2017-07-04] MEDS: levETIRAcetam LIQUID 100 MG/ML 30 ML/BOTTLE PO SCH ×2 (10:02→21:35)
[2017-07-04] MEDS: METOCLOPRAMIDE 10 MG/10 ML UDCUP PEG SCH ×4 (10:03→21:34)
[2017-07-04] MEDS: LACTOBACILLUS ACIDOPHILUS/BULGARICUS 1 PACKET PEG SCH ×4 (10:03→21:35)
[2017-07-04] MEDS: MORPHINE 2 MG/1 ML SYRINGE IV PRN (10:03)
[2017-07-04] MEDS: PANTOPRAZOLE 40 MG VIAL IV SCH (10:04)
[2017-07-04] MEDS: LEVOFLOXACIN INJ 750 MG in PREMIX 1 EACH IV SCH (10:04)
[2017-07-04] MEDS: POLYETHYLENE GLYCOL POWDER 17 GM PACK PEG SCH (10:04)
[2017-07-04] MEDS: ZINC OXIDE PASTE 113 GM TUBE TOP PRN (21:36)
[2017-07-05] MEDS: INSULIN REGULAR 100 UNIT/ML SUBCUT SCH ×4 (00:35→18:26)
[2017-07-05] MEDS: SODIUM CHLORIDE 0.45% 1,000 ML IV SCH ×3 (00:55→21:20)
[2017-07-05 06:46] LABS: Basophils % 0.2 % (0.0-0.8); Eosinophils # 0.2 10*3/uL (0.0-0.87); Eosinophils % 2.9 % (0.00-10.9); Hematocrit 27.2 VOL% (35.7-47.0); Hemoglobin 8.7 GM/DL (12.0-16.0); Immature Granulocytes % 0.4 %; Immature Granulocytes Absolute 0.02 #; Lymphocytes # 1.2 10*3/uL (1.4-4.0); Lymphocytes % 22.9 % (21.3-54.2); Mean Corpuscular Hemoglobin 30 PG (27-34); Mean Corpuscular Volume 93.8 FL (87-102); Mean Platelet Volume 9.3 FL (9.6-12.0); Monocytes # 0.3 10*3/uL (0.11-0.8); Monocytes % 5.8 % (1.7-12.7); Neutrophils # 3.5 10*3/uL (1.4-7.4); Neutrophils % 67.8 % (38.7-73.9); Platelet Count 155 T/CUMM (130-400); Red Cell Distribution Width 13.3 % (9.3-17.3); White Blood Count 5.2 T/CUMM (4-12)
[2017-07-05 07:10] LABS: Calcium 8.3 MG/DL (8.5-10.1); Osmolality,Calculated 288.4 MOS/KG (273-304); Potassium 3.3 MMOL/L (3.5-5.1)
[2017-07-05] MEDS: SCOPOLAMINE 1.5 MG PATCH TRANSDERM SCH (09:59)
[2017-07-05] MEDS: METOCLOPRAMIDE 10 MG/10 ML UDCUP PEG SCH ×4 (09:59→21:21)
[2017-07-05] MEDS: LACTOBACILLUS ACIDOPHILUS/BULGARICUS 1 PACKET PEG SCH ×4 (09:59→21:21)
[2017-07-05] MEDS: levETIRAcetam LIQUID 100 MG/ML 30 ML/BOTTLE PO SCH ×2 (10:00→21:21)
[2017-07-05] MEDS: CITALOPRAM 20 MG TABLET PEG SCH (10:00)
[2017-07-05] MEDS: LEVOFLOXACIN INJ 750 MG in PREMIX 1 EACH IV SCH (10:01)
[2017-07-05] MEDS: ENOXAPARIN 40 MG/0.4 ML SYRINGE SUBCUT SCH (10:02)
[2017-07-05] MEDS: PANTOPRAZOLE 40 MG VIAL IV SCH (10:02)
[2017-07-05] MEDS: POLYETHYLENE GLYCOL POWDER 17 GM PACK PEG SCH (10:02)
[2017-07-05] MEDS: MORPHINE 2 MG/1 ML SYRINGE IV PRN (10:02)
[2017-07-05 10:30] LABS: Calcium 7.9 MG/DL (8.5-10.1); Osmolality,Calculated 283.7 MOS/KG (273-304); Potassium 3.3 MMOL/L (3.5-5.1)
[2017-07-05] MEDS: POTASSIUM CHLORIDE 20 MEQ/15 ML UDCUP PER TUBE PRN ×3 (13:50→17:31)
[2017-07-05] MEDS: ZINC OXIDE PASTE 113 GM TUBE TOP PRN (21:21)
[2017-07-06] MEDS: SODIUM CHLORIDE 0.45% 1,000 ML IV SCH ×2 (05:30→16:32)
[2017-07-06] MEDS: INSULIN REGULAR 100 UNIT/ML SUBCUT SCH ×4 (06:34→18:50)
[2017-07-06] MEDS: CITALOPRAM 20 MG TABLET PEG SCH (09:52)
[2017-07-06] MEDS: levETIRAcetam LIQUID 100 MG/ML 30 ML/BOTTLE PO SCH ×2 (09:52→21:05)
[2017-07-06] MEDS: LACTOBACILLUS ACIDOPHILUS/BULGARICUS 1 PACKET PEG SCH ×4 (09:53→21:05)
[2017-07-06] MEDS: LEVOFLOXACIN INJ 750 MG in PREMIX 1 EACH IV SCH (09:53)
[2017-07-06] MEDS: METOCLOPRAMIDE 10 MG/10 ML UDCUP PEG SCH ×4 (09:54→21:04)
[2017-07-06] MEDS: PANTOPRAZOLE 40 MG VIAL IV SCH (09:54)
[2017-07-06] MEDS: ENOXAPARIN 40 MG/0.4 ML SYRINGE SUBCUT SCH (09:54)
[2017-07-06] MEDS: POLYETHYLENE GLYCOL POWDER 17 GM PACK PEG SCH ×2 (09:56→21:05)
[2017-07-06] MEDS: ZINC OXIDE PASTE 113 GM TUBE TOP PRN (09:58)
[2017-07-06] MEDS: LANSOPRAZOLE ODT 30 MG TABLET PEG SCH (21:04)
[2017-07-07] MEDS: INSULIN REGULAR 100 UNIT/ML SUBCUT SCH ×4 (01:31→19:04)
[2017-07-07] MEDS: SODIUM CHLORIDE 0.45% 1,000 ML IV SCH ×3 (01:50→12:47)
[2017-07-07 07:06] LABS: Basophils % 0.1 % (0.0-0.8); Eosinophils # 0.3 10*3/uL (0.0-0.87); Eosinophils % 3.7 % (0.00-10.9); Hematocrit 26.9 VOL% (35.7-47.0); Hemoglobin 8.7 GM/DL (12.0-16.0); Immature Granulocytes % 0.4 %; Immature Granulocytes Absolute 0.03 #; Lymphocytes # 1.1 10*3/uL (1.4-4.0); Lymphocytes % 15.8 % (21.3-54.2); Mean Corpuscular HGB Conc 32.3 GM/DL (32-36); Mean Corpuscular Hemoglobin 31 PG (27-34); Mean Corpuscular Volume 95.7 FL (87-102); Mean Platelet Volume 9.5 FL (9.6-12.0); Monocytes # 0.4 10*3/uL (0.11-0.8); Monocytes % 5.7 % (1.7-12.7); Neutrophils % 74.3 % (38.7-73.9); Platelet Count 157 T/CUMM (130-400); Red Blood Count 2.81 MC/CUMM (3.8-5.5); Red Cell Distribution Width 13.5 % (9.3-17.3); White Blood Count 6.8 T/CUMM (4-12)
[2017-07-07 07:36] LABS: Albumin 1.9 G/DL (3.4-5.0); Bilirubin,Total 0.4 MG/DL (0.2-1.0); Osmolality,Calculated 287.6 MOS/KG (273-304); Potassium 3.7 MMOL/L (3.5-5.1); Total Protein 5.2 G/DL (6.4-8.3)
[2017-07-07 07:42] LABS: Calcium 8.3 MG/DL (8.5-10.1); Osmolality,Calculated 289.6 MOS/KG (273-304); Potassium 3.8 MMOL/L (3.5-5.1)
[2017-07-07] MEDS: LANSOPRAZOLE ODT 30 MG TABLET PEG SCH ×2 (09:57→21:53)
[2017-07-07] MEDS: ENOXAPARIN 40 MG/0.4 ML SYRINGE SUBCUT SCH (09:57)
[2017-07-07] MEDS: LEVOFLOXACIN INJ 750 MG in PREMIX 1 EACH IV SCH (09:57)
[2017-07-07] MEDS: CITALOPRAM 20 MG TABLET PEG SCH (09:57)
[2017-07-07] MEDS: levETIRAcetam LIQUID 100 MG/ML 30 ML/BOTTLE PO SCH ×2 (09:58→21:53)
[2017-07-07] MEDS: METOCLOPRAMIDE 10 MG/10 ML UDCUP PEG SCH ×4 (09:58→21:53)
[2017-07-07] MEDS: LACTOBACILLUS ACIDOPHILUS/BULGARICUS 1 PACKET PEG SCH ×4 (09:58→21:53)
[2017-07-07] MEDS: POLYETHYLENE GLYCOL POWDER 17 GM PACK PEG SCH ×2 (09:58→21:54)
[2017-07-07] MEDS ORDERED: GLUCAGON 1 MG VIAL IM PRN (15:27)
[2017-07-07] MEDS ORDERED: DEXTROSE 50% 25 GM/50 ML VIAL IV PRN (15:27)
[2017-07-07] MEDS: CLOTRIMAZOLE 1% CREAM 15 GM TUBE TOP SCH ×2 (16:59→21:54)
[2017-07-07] MEDS ORDERED: CLOTRIMAZOLE 1% CREAM 15 GM TUBE TOP SCH (21:00)
[2017-07-08] MEDS: INSULIN REGULAR 100 UNIT/ML SUBCUT SCH ×4 (01:33→21:16)
[2017-07-08 06:59] LABS: Basophils % 0.2 % (0.0-0.8); Eosinophils # 0.2 10*3/uL (0.0-0.87); Eosinophils % 4.1 % (0.00-10.9); Hematocrit 30.7 VOL% (35.7-47.0); Hemoglobin 9.8 GM/DL (12.0-16.0); Immature Granulocytes % 0.6 %; Immature Granulocytes Absolute 0.03 #; Lymphocytes # 1.1 10*3/uL (1.4-4.0); Lymphocytes % 20.5 % (21.3-54.2); Mean Corpuscular HGB Conc 31.9 GM/DL (32-36); Mean Corpuscular Hemoglobin 31 PG (27-34); Mean Corpuscular Volume 96.2 FL (87-102); Mean Platelet Volume 9.3 FL (9.6-12.0); Monocytes # 0.4 10*3/uL (0.11-0.8); Monocytes % 7.3 % (1.7-12.7); Neutrophils # 3.6 10*3/uL (1.4-7.4); Neutrophils % 67.3 % (38.7-73.9); Platelet Count 151 T/CUMM (130-400); Red Blood Count 3.19 MC/CUMM (3.8-5.5); Red Cell Distribution Width 13.7 % (9.3-17.3); White Blood Count 5.4 T/CUMM (4-12)
[2017-07-08 07:17] LABS: Alanine Aminotransferase 18 U/L (13-56); Albumin 2.1 G/DL (3.4-5.0); Alkaline Phosphatase 59 U/L (45-117); Aspartate Amino Transferase 11 U/L (0-37); Bilirubin,Total < 0.39 MG/DL (0.2-1.0); Blood Urea Nitrogen 12 MG/DL (7-18); Calcium 8.7 MG/DL (8.5-10.1); Glucose 99 MG/DL (74-106); Osmolality,Calculated 287.7 MOS/KG (273-304); Potassium 3.9 MMOL/L (3.5-5.1); Sodium 145 MMOL/L (136-145); Total Protein 5.8 G/DL (6.4-8.3)
[2017-07-08] MEDS ORDERED: FOSFOMYCIN 3 GM PEG ONE (10:00)
[2017-07-08] MEDS: POLYETHYLENE GLYCOL POWDER 17 GM PACK PEG SCH ×2 (11:09→21:25)
[2017-07-08] MEDS: LANSOPRAZOLE ODT 30 MG TABLET PEG SCH ×2 (11:09→21:24)
[2017-07-08] MEDS: CITALOPRAM 20 MG TABLET PEG SCH (11:09)
[2017-07-08] MEDS: LACTOBACILLUS ACIDOPHILUS/BULGARICUS 1 PACKET PEG SCH ×4 (11:09→21:24)
[2017-07-08] MEDS: levETIRAcetam LIQUID 100 MG/ML 30 ML/BOTTLE PO SCH ×2 (11:10→21:24)
[2017-07-08] MEDS: CLOTRIMAZOLE 1% CREAM 15 GM TUBE TOP SCH ×3 (11:10→21:51)
[2017-07-08] MEDS: METOCLOPRAMIDE 10 MG/10 ML UDCUP PEG SCH ×4 (11:11→21:24)
[2017-07-08] MEDS: ENOXAPARIN 40 MG/0.4 ML SYRINGE SUBCUT SCH (11:11)
[2017-07-08] MEDS: SCOPOLAMINE 1.5 MG PATCH TRANSDERM SCH (13:46)
[2017-07-09] MEDS: INSULIN REGULAR 100 UNIT/ML SUBCUT SCH ×4 (00:16→19:21)
[2017-07-09] MEDS: LANSOPRAZOLE ODT 30 MG TABLET PEG SCH ×2 (09:37→21:33)
[2017-07-09] MEDS: METOCLOPRAMIDE 10 MG/10 ML UDCUP PEG SCH ×4 (09:37→21:32)
[2017-07-09] MEDS: CITALOPRAM 20 MG TABLET PEG SCH (09:37)
[2017-07-09] MEDS: LACTOBACILLUS ACIDOPHILUS/BULGARICUS 1 PACKET PEG SCH ×4 (09:37→21:32)
[2017-07-09] MEDS: levETIRAcetam LIQUID 100 MG/ML 30 ML/BOTTLE PO SCH ×2 (09:39→21:32)
[2017-07-09] MEDS: CLOTRIMAZOLE 1% CREAM 15 GM TUBE TOP SCH ×3 (09:40→21:32)
[2017-07-09] MEDS: ENOXAPARIN 40 MG/0.4 ML SYRINGE SUBCUT SCH (09:40)
[2017-07-09] MEDS: POLYETHYLENE GLYCOL POWDER 17 GM PACK PEG SCH ×2 (09:40→21:32)
[2017-07-10] MEDS: INSULIN REGULAR 100 UNIT/ML SUBCUT SCH ×5 (00:55→23:52)
[2017-07-10] MEDS: CITALOPRAM 20 MG TABLET PEG SCH (08:37)
[2017-07-10] MEDS: CLOTRIMAZOLE 1% CREAM 15 GM TUBE TOP SCH ×3 (08:40→21:15)
[2017-07-10] MEDS: LACTOBACILLUS ACIDOPHILUS/BULGARICUS 1 PACKET PEG SCH ×4 (08:40→21:14)
[2017-07-10] MEDS: ENOXAPARIN 40 MG/0.4 ML SYRINGE SUBCUT SCH (08:40)
[2017-07-10] MEDS: POLYETHYLENE GLYCOL POWDER 17 GM PACK PEG SCH ×2 (08:41→21:14)
[2017-07-10] MEDS: METOCLOPRAMIDE 10 MG/10 ML UDCUP PEG SCH ×4 (08:41→21:13)
[2017-07-10] MEDS: LANSOPRAZOLE ODT 30 MG TABLET PEG SCH ×2 (08:41→21:14)
[2017-07-10] MEDS: levETIRAcetam LIQUID 100 MG/ML 30 ML/BOTTLE PO SCH ×2 (11:48→21:14)
[2017-07-11] MEDS: INSULIN REGULAR 100 UNIT/ML SUBCUT SCH ×3 (07:52→18:29)
[2017-07-11] MEDS: CITALOPRAM 20 MG TABLET PEG SCH (09:14)
[2017-07-11] MEDS: levETIRAcetam LIQUID 100 MG/ML 30 ML/BOTTLE PO SCH ×2 (09:14→21:10)
[2017-07-11] MEDS: CLOTRIMAZOLE 1% CREAM 15 GM TUBE TOP SCH ×3 (09:15→21:10)
[2017-07-11] MEDS: LANSOPRAZOLE ODT 30 MG TABLET PEG SCH ×2 (09:15→21:10)
[2017-07-11] MEDS: ENOXAPARIN 40 MG/0.4 ML SYRINGE SUBCUT SCH (09:15)
[2017-07-11] MEDS: POLYETHYLENE GLYCOL POWDER 17 GM PACK PEG SCH ×2 (09:15→21:10)
[2017-07-11] MEDS: LACTOBACILLUS ACIDOPHILUS/BULGARICUS 1 PACKET PEG SCH ×4 (09:15→21:10)
[2017-07-11] MEDS: SCOPOLAMINE 1.5 MG PATCH TRANSDERM SCH (09:16)
[2017-07-11] MEDS: METOCLOPRAMIDE 10 MG/10 ML UDCUP PEG SCH ×4 (09:16→21:10)
[2017-07-12] MEDS: INSULIN REGULAR 100 UNIT/ML SUBCUT SCH ×4 (01:54→18:08)
[2017-07-12 06:02] LABS: Calcium 8.4 MG/DL (8.5-10.1); Magnesium 2.3 MG/DL (1.8-2.4); Osmolality,Calculated 282.3 MOS/KG (273-304); Potassium 4.1 MMOL/L (3.5-5.1)
[2017-07-12 06:41] LABS: Basophils % 0.4 % (0.0-0.8); Eosinophils # 0.2 10*3/uL (0.0-0.87); Eosinophils % 3.1 % (0.00-10.9); Hematocrit 28.9 VOL% (35.7-47.0); Hemoglobin 9.7 GM/DL (12.0-16.0); Immature Granulocytes % 0.6 %; Immature Granulocytes Absolute 0.04 #; Lymphocytes # 1.8 10*3/uL (1.4-4.0); Lymphocytes % 24.6 % (21.3-54.2); Mean Corpuscular HGB Conc 33.6 GM/DL (32-36); Mean Corpuscular Hemoglobin 32 PG (27-34); Mean Corpuscular Volume 94.4 FL (87-102); Mean Platelet Volume 9.4 FL (9.6-12.0); Monocytes # 0.6 10*3/uL (0.11-0.8); Monocytes % 7.6 % (1.7-12.7); Neutrophils # 4.6 10*3/uL (1.4-7.4); Neutrophils % 63.7 % (38.7-73.9); Platelet Count 204 T/CUMM (130-400); Red Blood Count 3.06 MC/CUMM (3.8-5.5); Red Cell Distribution Width 14.1 % (9.3-17.3); White Blood Count 7.2 T/CUMM (4-12)
[2017-07-12] MEDS: CITALOPRAM 20 MG TABLET PEG SCH (09:31)
[2017-07-12] MEDS: levETIRAcetam LIQUID 100 MG/ML 30 ML/BOTTLE PO SCH ×2 (09:31→21:29)
[2017-07-12] MEDS: LACTOBACILLUS ACIDOPHILUS/BULGARICUS 1 PACKET PEG SCH ×4 (09:32→21:30)
[2017-07-12] MEDS: ENOXAPARIN 40 MG/0.4 ML SYRINGE SUBCUT SCH (09:33)
[2017-07-12] MEDS: METOCLOPRAMIDE 10 MG/10 ML UDCUP PEG SCH ×4 (09:33→21:30)
[2017-07-12] MEDS: POLYETHYLENE GLYCOL POWDER 17 GM PACK PEG SCH ×2 (09:33→21:30)
[2017-07-12] MEDS: CLOTRIMAZOLE 1% CREAM 15 GM TUBE TOP SCH ×3 (09:33→21:30)
[2017-07-12] MEDS: LANSOPRAZOLE ODT 30 MG TABLET PEG SCH ×2 (09:33→21:30)
[2017-07-13] MEDS: INSULIN REGULAR 100 UNIT/ML SUBCUT SCH ×2 (02:39→06:36)
[2017-07-13 07:36] VITALS: BP 103/62
[2017-07-13] MEDS: POLYETHYLENE GLYCOL POWDER 17 GM PACK PEG SCH (09:03)
[2017-07-13] MEDS: METOCLOPRAMIDE 10 MG/10 ML UDCUP PEG SCH (09:04)
[2017-07-13] MEDS: CITALOPRAM 20 MG TABLET PEG SCH (09:04)
[2017-07-13] MEDS: levETIRAcetam LIQUID 100 MG/ML 30 ML/BOTTLE PO SCH (09:04)
[2017-07-13] MEDS: LANSOPRAZOLE ODT 30 MG TABLET PEG SCH (09:04)
[2017-07-13] MEDS: LACTOBACILLUS ACIDOPHILUS/BULGARICUS 1 PACKET PEG SCH (09:04)
[2017-07-13] MEDS: ZINC OXIDE PASTE 113 GM TUBE TOP PRN (09:05)
[2017-07-13] MEDS: CLOTRIMAZOLE 1% CREAM 15 GM TUBE TOP SCH (09:05)
[2017-07-13] MEDS: ENOXAPARIN 40 MG/0.4 ML SYRINGE SUBCUT SCH (09:07)
== END 2017-07-13 11:22 | DRG 137 ==
LOC: EDBD → EDUNIT# → N.ED 20:59 → N.EDINP 07-02 01:01 → SUATTDRO 07-02 01:01 → N.2E 07-02 01:17
PROVIDERS: ATTEND Internal Medicine

== ENCOUNTER 2018-01-04 13:05 | Inpatient (IN) ==
[2018-01-04] MEDS ORDERED: ONDANSETRON 4 MG/2 ML VIAL IV STA (13:56)
[2018-01-04 14:03] LABS: Basophils # 0.1 10*3/uL (0.0-0.2); Basophils % 0.6 % (0.0-0.8); Eosinophils % 0.1 % (0.00-10.9); Hemoglobin 13.8 GM/DL (12.0-16.0); Immature Granulocytes % 0.2 %; Immature Granulocytes Absolute 0.04 #; Lymphocytes # 0.8 10*3/uL (1.4-4.0); Lymphocytes % 4.7 % (21.3-54.2); Mean Corpuscular HGB Conc 32.9 GM/DL (32-36); Mean Corpuscular Hemoglobin 29 PG (27-34); Mean Corpuscular Volume 86.8 FL (87-102); Mean Platelet Volume 9.2 FL (9.6-12.0); Monocytes # 0.3 10*3/uL (0.11-0.8); Monocytes % 2.1 % (1.7-12.7); Neutrophils % 92.3 % (38.7-73.9); Platelet Count 229 T/CUMM (130-400); Red Blood Count 4.84 MC/CUMM (3.8-5.5); Red Cell Distribution Width 14.6 % (9.3-17.3); White Blood Count 16.3 T/CUMM (4-12)
[2018-01-04 14:16] LABS: Alanine Aminotransferase 14 U/L (13-56); Albumin 2.4 G/DL (3.4-5.0); Alkaline Phosphatase 108 U/L (45-117); Aspartate Amino Transferase 14 U/L (0-37); Bilirubin,Total < 0.39 MG/DL (0.2-1.0); Blood Urea Nitrogen 36 MG/DL (7-18); Calcium 9.9 MG/DL (8.5-10.1); Glucose 103 MG/DL (74-106); Osmolality,Calculated 275.2 MOS/KG (273-304); Potassium 4.5 MMOL/L (3.5-5.1); Sodium 134 MMOL/L (136-145); Total Protein 8.8 G/DL (6.4-8.3)
[2018-01-04] MEDS ORDERED: ONDANSETRON 4 MG/2 ML VIAL ONE (14:19)
[2018-01-04 14:31] LABS: Band Neutrophils 3 % (0-10); Lymphocytes 5 % (20-55); Segmented Neutrophils 88 % (50-85); Total Cells Counted 100
[2018-01-04 14:32] LABS: Anisocytosis 1+; Platelet Estimate Adequate
[2018-01-04 14:51] LABS: Apearance,Urine CLOUDY (Clear); Bacteria,Urine Many /HPF (Few); Bilirubin,Urine Negative (Negative); Blood, Urine Small mg/dL (Negative); Glucose,Urine (UA) Negative (Negative); Ketones,Urine Negative (Negative); Mucus,Urine Occasional /LPF (Occasional); Nitrite,Urine Negative (Negative); Protein,Urine Negative; RBC,Urine 9 /HPF (0-4); Squamous Epithelial Cell,Urine Occasional /HPF (0-10); Urine Color Yellow (Yellow); Urine Specific Gravity 1.011 (1.001-1.035); Urine Urobilinogen < 2.0 EU/DL (0.2-1.0); WBC,Urine 13 /HPF (0-6)
[2018-01-04] MEDS ORDERED: cefTRIAXone 1,000 MG VIAL ONE (16:44)
[2018-01-04] MEDS ORDERED: cefTRIAXone 1,000 MG in SODIUM CHLORIDE 0.9% 100 ML IV ONE (16:53)
[2018-01-04 19:30] LABS: Calcium 8.8 MG/DL (8.5-10.1); Osmolality,Calculated 281.8 MOS/KG (273-304); Potassium 4.5 MMOL/L (3.5-5.1)
[2018-01-04] MEDS: PIPERACILLIN/TAZOBACTAM 3,375 MG in SODIUM CHLORIDE 0.9% 100 ML IV SCH (19:34)
[2018-01-04] MEDS: SODIUM CHLORIDE 0.9% 1,000 ML IV SCH (19:34)
[2018-01-05] MEDS: PIPERACILLIN/TAZOBACTAM 3,375 MG in SODIUM CHLORIDE 0.9% 100 ML IV SCH ×3 (03:19→21:27)
[2018-01-05 05:19] LABS: Basophils % 0.2 % (0.0-0.8); Eosinophils % 0.2 % (0.00-10.9); Hematocrit 39.2 VOL% (35.7-47.0); Hemoglobin 12.5 GM/DL (12.0-16.0); Immature Granulocytes % 0.4 %; Immature Granulocytes Absolute 0.05 #; Lymphocytes # 0.7 10*3/uL (1.4-4.0); Lymphocytes % 5.2 % (21.3-54.2); Mean Corpuscular HGB Conc 31.9 GM/DL (32-36); Mean Corpuscular Hemoglobin 28 PG (27-34); Mean Corpuscular Volume 88.3 FL (87-102); Mean Platelet Volume 9.2 FL (9.6-12.0); Monocytes # 0.5 10*3/uL (0.11-0.8); Monocytes % 3.3 % (1.7-12.7); Neutrophils # 12.5 10*3/uL (1.4-7.4); Neutrophils % 90.7 % (38.7-73.9); Platelet Count 236 T/CUMM (130-400); Red Blood Count 4.44 MC/CUMM (3.8-5.5); Red Cell Distribution Width 14.6 % (9.3-17.3); White Blood Count 13.8 T/CUMM (4-12)
[2018-01-05 05:45] LABS: Band Neutrophils 2 % (0-10); Hypochromasia 1+; Lymphocytes 5 % (20-55); Segmented Neutrophils 92 % (50-85); Total Cells Counted 100
[2018-01-05] MEDS ORDERED: METOPROLOL TARTRATE 5 MG/5 ML VIAL IV ONE (14:12)
[2018-01-05] MEDS ORDERED: SODIUM CHLORIDE 0.9% 500 ML IV ONE ×2 (15:39→15:40)
[2018-01-05] MEDS: SODIUM CHLORIDE 0.9% 1,000 ML IV SCH ×2 (19:05→21:23)
[2018-01-05] MEDS ORDERED: KETOROLAC 15 MG/1 ML VIAL IV ONE (22:55)
[2018-01-06] MEDS: SODIUM CHLORIDE 0.9% 1,000 ML IV SCH (03:10)
[2018-01-06 04:51] LABS: Basophils % 0.1 % (0.0-0.8); Hematocrit 36.5 VOL% (35.7-47.0); Hemoglobin 11.2 GM/DL (12.0-16.0); Immature Granulocytes % 0.6 %; Immature Granulocytes Absolute 0.05 #; Lymphocytes % 11.5 % (21.3-54.2); Mean Corpuscular HGB Conc 30.7 GM/DL (32-36); Mean Corpuscular Hemoglobin 29 PG (27-34); Mean Corpuscular Volume 93.1 FL (87-102); Mean Platelet Volume 9.2 FL (9.6-12.0); Monocytes # 0.7 10*3/uL (0.11-0.8); Monocytes % 8.5 % (1.7-12.7); Neutrophils # 6.5 10*3/uL (1.4-7.4); Neutrophils % 79.3 % (38.7-73.9); Platelet Count 202 T/CUMM (130-400); Red Blood Count 3.92 MC/CUMM (3.8-5.5); Red Cell Distribution Width 14.6 % (9.3-17.3); White Blood Count 8.2 T/CUMM (4-12)
[2018-01-06 05:07] LABS: Calcium 8.1 MG/DL (8.5-10.1); Osmolality,Calculated 322.9 MOS/KG (273-304); Potassium 2.7 MMOL/L (3.5-5.1)
[2018-01-06 05:21] LABS: Band Neutrophils 1 % (0-10); Lymphocytes 6 % (20-55); Segmented Neutrophils 85 % (50-85); Total Cells Counted 100
[2018-01-06 05:22] LABS: Hypochromasia 1+; Microcytosis 1+
[2018-01-06] MEDS: PIPERACILLIN/TAZOBACTAM 3,375 MG in SODIUM CHLORIDE 0.9% 100 ML IV SCH (06:23)
[2018-01-06] MEDS ORDERED: DEXTROSE 5% 1,000 ML IV SCH (07:00)
[2018-01-06 08:06] LABS: Calcium 8.2 MG/DL (8.5-10.1); Osmolality,Calculated 325.9 MOS/KG (273-304); Potassium 3.3 MMOL/L (3.5-5.1)
[2018-01-06] MEDS: POTASSIUM CHLORIDE RIDER 20 MEQ in PREMIX 1 EACH IV SCH ×2 (08:51→10:52)
[2018-01-06] MEDS ORDERED: POTASSIUM CHLORIDE 20 MEQ TABLET PO ONE (11:53)
[2018-01-06] MEDS: AMPICILLIN INJ 1,000 MG in SODIUM CHLORIDE 0.9% 100 ML IV SCH ×2 (13:39→21:16)
[2018-01-06 14:00] LABS: Calcium 8.2 MG/DL (8.5-10.1); Osmolality,Calculated 318.3 MOS/KG (273-304); Potassium 3.7 MMOL/L (3.5-5.1)
[2018-01-06] MEDS: DEXTROSE 5% NACL 0.45% 1,000 ML IV SCH (21:20)
[2018-01-06] MEDS ORDERED: KETOROLAC 15 MG/1 ML VIAL IV ONE (22:06)
[2018-01-07] MEDS: DEXTROSE 5% NACL 0.45% 1,000 ML IV SCH ×5 (02:07→23:24)
[2018-01-07] MEDS: AMPICILLIN INJ 1,000 MG in SODIUM CHLORIDE 0.9% 100 ML IV SCH ×4 (02:21→20:56)
[2018-01-07 06:06] LABS: Osmolality,Calculated 292.3 MOS/KG (273-304); Potassium 3.8 MMOL/L (3.5-5.1)
[2018-01-07] MEDS ORDERED: SKIN HEALING OINT (AQUAPHOR) 50 GM TUBE TOP PRN (10:26)
[2018-01-07 14:59] LABS: Apearance,Urine CLOUDY (Clear); Bilirubin,Urine Negative (Negative); Blood, Urine Moderate mg/dL (Negative); Glucose,Urine (UA) Negative (Negative); Ketones,Urine Negative (Negative); Nitrite,Urine Negative (Negative); Protein,Urine Negative; RBC,Urine 12 /HPF (0-4); Urine Color Yellow (Yellow); Urine Specific Gravity 1.008 (1.001-1.035); Urine Urobilinogen < 2.0 EU/DL (0.2-1.0); WBC,Urine 183 /HPF (0-6)
[2018-01-07] MEDS: MORPHINE 4 MG/1 ML VIAL IV PRN (20:55)
[2018-01-08] MEDS: AMPICILLIN INJ 1,000 MG in SODIUM CHLORIDE 0.9% 100 ML IV SCH ×4 (01:13→21:20)
[2018-01-08 05:40] LABS: Calcium 7.6 MG/DL (8.5-10.1); Osmolality,Calculated 290.6 MOS/KG (273-304); Potassium 3.3 MMOL/L (3.5-5.1)
[2018-01-08] MEDS: DEXTROSE 5% NACL 0.45% 1,000 ML IV SCH ×2 (10:59→12:29)
[2018-01-08] MEDS: FLUCONAZOLE INJ 400 MG in PREMIX 1 EACH IV SCH (12:29)
[2018-01-09] MEDS: POTASSIUM CHLORIDE RIDER 20 MEQ in PREMIX 1 EACH IV PRN ×2 (00:15→02:18)
[2018-01-09] MEDS: AMPICILLIN INJ 1,000 MG in SODIUM CHLORIDE 0.9% 100 ML IV SCH ×4 (04:20→21:33)
[2018-01-09] MEDS ORDERED: ACETAMINOPHEN 500 MG TABLET PO ONE (05:30)
[2018-01-09 05:47] LABS: Basophils % 0.1 % (0.0-0.8); Eosinophils # 0.5 10*3/uL (0.0-0.87); Eosinophils % 4.2 % (0.00-10.9); Hematocrit 30.2 VOL% (35.7-47.0); Hemoglobin 9.7 GM/DL (12.0-16.0); Immature Granulocytes % 0.9 %; Lymphocytes # 1.3 10*3/uL (1.4-4.0); Lymphocytes % 10.9 % (21.3-54.2); Mean Corpuscular HGB Conc 32.1 GM/DL (32-36); Mean Corpuscular Hemoglobin 28 PG (27-34); Mean Corpuscular Volume 87.8 FL (87-102); Mean Platelet Volume 9.2 FL (9.6-12.0); Monocytes # 0.3 10*3/uL (0.11-0.8); Monocytes % 2.9 % (1.7-12.7); Neutrophils # 9.3 10*3/uL (1.4-7.4); Platelet Count 203 T/CUMM (130-400); Red Blood Count 3.44 MC/CUMM (3.8-5.5); Red Cell Distribution Width 14.5 % (9.3-17.3); White Blood Count 11.5 T/CUMM (4-12)
[2018-01-09 06:37] LABS: Calcium 7.8 MG/DL (8.5-10.1); Osmolality,Calculated 285.6 MOS/KG (273-304)
[2018-01-09] MEDS: DEXTROSE 5% NACL 0.45% 1,000 ML IV SCH ×2 (08:15→10:15)
[2018-01-09] MEDS: FLUCONAZOLE INJ 400 MG in PREMIX 1 EACH IV SCH (11:49)
[2018-01-09] MEDS ORDERED: ALBUTEROL/IPRATROPIUM 3 ML NEB RESP TX PRN (13:14)
[2018-01-10] MEDS: MORPHINE 4 MG/1 ML VIAL IV PRN (01:11)
[2018-01-10] MEDS: ONDANSETRON 4 MG/2 ML VIAL IV PRN (01:14)
[2018-01-10] MEDS: AMPICILLIN INJ 1,000 MG in SODIUM CHLORIDE 0.9% 100 ML IV SCH ×4 (04:30→21:49)
[2018-01-10] MEDS: DEXTROSE 5% NACL 0.45% 1,000 ML IV SCH (07:47)
[2018-01-10] MEDS: FLUCONAZOLE INJ 400 MG in PREMIX 1 EACH IV SCH (12:04)
[2018-01-11] MEDS: ONDANSETRON 4 MG/2 ML VIAL IV PRN (01:42)
[2018-01-11] MEDS: MORPHINE 4 MG/1 ML VIAL IV PRN ×2 (01:44→20:11)
[2018-01-11] MEDS: AMPICILLIN INJ 1,000 MG in SODIUM CHLORIDE 0.9% 100 ML IV SCH ×2 (04:25→09:27)
[2018-01-11] MEDS: DEXTROSE 5% NACL 0.45% 1,000 ML IV SCH ×2 (06:05→14:45)
[2018-01-11 06:47] LABS: Basophils % 0.1 % (0.0-0.8); Eosinophils # 0.1 10*3/uL (0.0-0.87); Eosinophils % 0.6 % (0.00-10.9); Hematocrit 31.4 VOL% (35.7-47.0); Immature Granulocytes % 0.5 %; Lymphocytes # 1.7 10*3/uL (1.4-4.0); Lymphocytes % 9.5 % (21.3-54.2); Mean Corpuscular HGB Conc 31.8 GM/DL (32-36); Mean Corpuscular Hemoglobin 28 PG (27-34); Mean Corpuscular Volume 88.5 FL (87-102); Mean Platelet Volume 9.3 FL (9.6-12.0); Monocytes # 0.6 10*3/uL (0.11-0.8); Monocytes % 3.2 % (1.7-12.7); Neutrophils # 15.8 10*3/uL (1.4-7.4); Neutrophils % 86.1 % (38.7-73.9); Platelet Count 232 T/CUMM (130-400); Red Blood Count 3.55 MC/CUMM (3.8-5.5); Red Cell Distribution Width 14.7 % (9.3-17.3); White Blood Count 18.3 T/CUMM (4-12)
[2018-01-11 07:24] LABS: Alanine Aminotransferase < 9 U/L (13-56); Albumin 1.6 G/DL (3.4-5.0); Alkaline Phosphatase 70 U/L (45-117); Aspartate Amino Transferase 11 U/L (0-37); Bilirubin,Total < 0.39 MG/DL (0.2-1.0); Blood Urea Nitrogen 4 MG/DL (7-18); Calcium 7.5 MG/DL (8.5-10.1); Glucose 80 MG/DL (74-106); Osmolality,Calculated 283.7 MOS/KG (273-304); Potassium 3.5 MMOL/L (3.5-5.1); Sodium 145 MMOL/L (136-145)
[2018-01-11] MEDS ORDERED: SODIUM CHLORIDE 0.9% 250 ML IV ONE ×2 (08:39→09:00)
[2018-01-11] MEDS: FLUCONAZOLE INJ 400 MG in PREMIX 1 EACH IV SCH (10:45)
[2018-01-12] MEDS: DEXTROSE 5% NACL 0.45% 1,000 ML IV SCH (04:30)
[2018-01-12 07:51] LABS: Basophils % 0.1 % (0.0-0.8); Eosinophils # 0.2 10*3/uL (0.0-0.87); Eosinophils % 1.8 % (0.00-10.9); Hematocrit 32.1 VOL% (35.7-47.0); Immature Granulocytes % 0.6 %; Immature Granulocytes Absolute 0.07 #; Lymphocytes # 1.5 10*3/uL (1.4-4.0); Lymphocytes % 13.4 % (21.3-54.2); Mean Corpuscular HGB Conc 31.2 GM/DL (32-36); Mean Corpuscular Hemoglobin 28 PG (27-34); Mean Corpuscular Volume 90.9 FL (87-102); Mean Platelet Volume 9.5 FL (9.6-12.0); Monocytes # 0.6 10*3/uL (0.11-0.8); Monocytes % 5.6 % (1.7-12.7); Neutrophils # 8.8 10*3/uL (1.4-7.4); Neutrophils % 78.5 % (38.7-73.9); Platelet Count 264 T/CUMM (130-400); Red Blood Count 3.53 MC/CUMM (3.8-5.5); Red Cell Distribution Width 15.1 % (9.3-17.3); White Blood Count 11.2 T/CUMM (4-12)
[2018-01-12 08:25] LABS: Calcium 7.8 MG/DL (8.5-10.1); Osmolality,Calculated 285.6 MOS/KG (273-304); Potassium 3.3 MMOL/L (3.5-5.1)
[2018-01-12] MEDS ORDERED: MAGNESIUM SULF RIDER 2 GM in PREMIX 1 EACH IV PRN (08:38)
[2018-01-12] MEDS ORDERED: MAGNESIUM SULF RIDER 4 GM in PREMIX 1 EACH IV PRN (08:38)
[2018-01-12] MEDS: POTASSIUM CHLORIDE RIDER 10 MEQ in PREMIX 1 EACH IV PRN ×2 (09:28→12:54)
[2018-01-12] MEDS: MORPHINE 4 MG/1 ML VIAL IV PRN ×2 (09:28→12:45)
[2018-01-12] MEDS: POTASSIUM CHLORIDE RIDER 20 MEQ in PREMIX 1 EACH IV PRN (15:30)
[2018-01-12] MEDS: levETIRAcetam LIQUID 100 MG/ML 30 ML/BOTTLE PO SCH (21:00)
[2018-01-12] MEDS ORDERED: POTASSIUM CHLORIDE INJ 30 MEQ in SODIUM CHLORIDE 0.9% 285 ML IV SCH (22:30)
[2018-01-13] MEDS: DEXTROSE 5% NACL 0.45% 1,000 ML IV SCH (00:13)
[2018-01-13] MEDS: ONDANSETRON 4 MG/2 ML VIAL IV PRN (00:19)
[2018-01-13] MEDS ORDERED: ACETAMINOPHEN 325 MG TABLET PO PRN (04:49)
[2018-01-13 05:34] LABS: Basophils % 0.2 % (0.0-0.8); Eosinophils # 0.1 10*3/uL (0.0-0.87); Eosinophils % 0.7 % (0.00-10.9); Hematocrit 29.1 VOL% (35.7-47.0); Hemoglobin 9.5 GM/DL (12.0-16.0); Immature Granulocytes % 0.6 %; Immature Granulocytes Absolute 0.07 #; Lymphocytes # 1.5 10*3/uL (1.4-4.0); Lymphocytes % 13.1 % (21.3-54.2); Mean Corpuscular HGB Conc 32.6 GM/DL (32-36); Mean Corpuscular Hemoglobin 29 PG (27-34); Mean Corpuscular Volume 87.4 FL (87-102); Mean Platelet Volume 9.1 FL (9.6-12.0); Monocytes # 0.7 10*3/uL (0.11-0.8); Monocytes % 6.2 % (1.7-12.7); Neutrophils # 9.2 10*3/uL (1.4-7.4); Neutrophils % 79.2 % (38.7-73.9); Platelet Count 222 T/CUMM (130-400); Red Blood Count 3.33 MC/CUMM (3.8-5.5); Red Cell Distribution Width 15.1 % (9.3-17.3); White Blood Count 11.6 T/CUMM (4-12)
[2018-01-13 06:09] LABS: Calcium 7.7 MG/DL (8.5-10.1); Osmolality,Calculated 279.1 MOS/KG (273-304); Potassium 4.1 MMOL/L (3.5-5.1)
[2018-01-13] MEDS: levETIRAcetam LIQUID 100 MG/ML 30 ML/BOTTLE PO SCH (10:27)
[2018-01-13 11:42] VITALS: BP 97/72
== END 2018-01-13 12:40 | DRG 388 ==
LOC: EDBD → EDUNIT# → N.ED 13:05 → SUATTDRO 15:04 → N.EDINP 15:04 → N.TELES 15:52 → N.2E 01-08 14:08
PROVIDERS: ADMIT Family Medicine; ATTEND Internal Medicine